=== PATIENT | male | born 1930 | race Caucasian/White ===

== ENCOUNTER 2016-05-08 15:48 | Inpatient (IN) | payer OTHER ==
[~2016-05-08] VITALS: Ht 167.6 cm; Wt 66.7 kg
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
--- NOTE | 2016-05-08 16:05 | NUR ---
Informed waiting has been performed.
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
--- NOTE | 2016-05-08 17:32 | NUR ---
PT NOTIFIED BY URIAH RAMIREZ THAT HE WILL BE ADMITTED TO THE HOSPITAL FOR SURGERY. 20G IV PLACED IN RIGHT FOREARM. FLUSHED PER PROTOCOL. NO REDNESS, SWELLING, HEAT, OR PAIN AT SITE. LABS DRAWN. LAV, YELLOW, BLUE, MODI, AND PINK SENT TO LAB. PT. TOLERATED PROCEDURE WELL.
[2016-05-08 17:50] LABS: ABSOLUTE BASOPHIL COUNT 0 /CUMM (0.0-0.2); ABSOLUTE EOSINOPHIL COUNT 0.1 /CUMM (0.0-0.7); ABSOLUTE GRANULOCYTE CT 4.8 /CUMM (1.4-6.5); ABSOLUTE LYMPH COUNT 1.9 /CUMM (1.2-3.4); ABSOLUTE MONOCYTE COUNT 0.5 /CUMM (0.10-0.60); BASOPHIL % 0.5 % (0.0-2.0); GRANULOCYTE % 65.2 % (42.2-75.2); MEAN CORPUSCULAR HGB 32.6 PG (27.0-31.0); MEAN CORPUSCULAR HGB CONC 33.5 G/DL (33.0-37.0); MEAN CORPUSCULAR VOLUME 97.4 FL (80.0-94.0); MEAN PLATELET VOLUME 8.5 FL (7.4-10.4); PLATELET COUNT 206 /CUMM (130-400); RBC DISTRIBUTION WIDTH 13.2 % (11.5-14.5); RED BLOOD CELL CT 3.39 /CUMM (4.70-6.10); WHITE BLOOD CELL COUNT 7.4 /CUMM (4.8-10.8)
[2016-05-08 17:52] LABS: PT 16.9 SEC (9.4-12.5); PTT 32 SEC (25-37)
--- NOTE | 2016-05-08 18:06 | RADIOLOGY REPORT ---
EXAMINATION: XR PORTABLE CHEST CLINICAL INFORMATION: 85-year-old male patient preop for neck fracture. COMPARISON: Chest x-ray performed on 11/08/2008. TECHNIQUE: AP portable semierect view of the chest was obtained. FINDINGS: The heart is top normal in size. The lungs are clear. Tenting of both hemidiaphragms can be attributed to pleural adhesions. IMPRESSION: No acute disease.
--- NOTE | 2016-05-08 18:34 | PN- Att Addend ---
Attending Addendum Attending Brief Note 85-year-old malecomes into emergency room with complaints of left hip pain. Patient reports that on [place] he slipped and came down on his left hip. Patient reports that he's been walking on a with a cane since then but having pain. Patient had out patient images done today which showed a left hip fracture. Patient comes in for further evaluation. Pain is sharp. Moderate to severe at times. Has htn and CKD, with history of heart murmur No recent cardiac events, remote history of colon cancer PAST MEDICAL/SURGICAL HISTORY: History of colon cancer, S/P resection, short- bowel syndrome, recurrent diarrhea, history of hyperkalemia, history of hypertension with irregular heartbeats, history of Marsh's cyst, diverticulosis. MEDICATIONS: Per CMR. ALLERGY: Tagamet and some antibiotic he is not sure of. PREVIOUS TRANSFUSION: Yes. FAMILY HISTORY: His daughter had a stroke, mother had cancer. SOCIAL HISTORY: He is and lives at home with his . He quit smoking 40 years ago. No history of alcohol abuse. Review of Systems Constitutional: Reports: no symptoms. Eyes: Reports: no symptoms. Ears, Nose, Throat, Mouth: Reports: no symptoms. Respiratory: Reports: no symptoms. Cardiovascular: Reports: no symptoms. Gastrointestinal/Abdominal: Reports: no symptoms. Genitourinary: Reports: no symptoms. Musculoskeletal: Reports: see HPI. Skin: Reports: no symptoms. Neurological/Psychological: Reports: no symptoms. All Other Systems: Reviewed and Negative Past History Travel History Traveled to [place] past 21 day No Medical History Any Pertinent Medical History? 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 No Physical Exam General Appearance: well developed/nourished, no apparent distress, alert Head: atraumatic, normal appearance Eyes: Bilateral: normal appearance. Ears, Nose, Throat, Mouth: hearing grossly normal, moist mucous membrane Neck: normal inspection Respiratory: normal breath sounds, no respiratory distress Cardiovascular: regular rate/rhythm mild elaine Back: normal inspection Extremities: tendeness left hip, pin with internal/external rotation of foot in hip Neurologic/Psych: awake, alert, oriented x 3 Skin: intact, normal color Vital Signs Date Time Temp Pulse Resp B/P Pulse O2 O2 Flow FiO2 Ox Delivery Rate 05/08 1735 58 18 174/96 98 Room Air 05/08 1603 98.2 55 20 172/87 99 Room Air Laboratory Tests 05/08/16 1725: Anion Gap 17 H, Estimated GFR 30 L, BUN/Creatinine Ratio 18.1, Glucose 87, Calcium 10.0, PT 16.9 H, INR 1.62 H, APTT 32, CBC w Diff NO MAN DIFF REQ, RBC 3.39 L, MCV 97.4 H, MCH 32.6 H, RDW 13.2, MPV 8.5, Gran % 65.2, Lymphocytes % 26.3, Monocytes % 7.0, Eosinophils % 1.0, Basophils % 0.5, Absolute Granulocytes 4.8, Absolute Lymphocytes 1.9, Absolute Monocytes 0.5, Absolute Eosinophils 0.1, Absolute Basophils 0, PUBS MCHC 33.5 Orders Procedure Date/time Status PARTIAL THROMBOPLASTIN TIME 05/08 170 Complete PROTHROMBIN TIME 05/08 170 Complete TYPE & SCREEN (NOT X-MATCH) 05/08 170 Active CBC WITHOUT DIFFERENTIAL 05/08 170 Complete BASIC METABOLIC PANEL 05/08 170 Complete EKG 05/08 1704 Active EKG 1degree avb Regular pulse CXR normal Out side images not available IMPRESSION HIP fracture HTN stable Previous arrythmia stable now with normal heart rate and regular rhythm b exam 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
[2016-05-08] MEDS ORDERED: POTASSIUM CHLO20 ME2 PO (19:16)
[2016-05-08] MEDS ORDERED: AMLODIPINE BESYL5 M1 PO (19:16)
[2016-05-08] MEDS ORDERED: MAGNESIUM500 M2 PO ×2 (19:19)
[2016-05-08] MEDS ORDERED: VITAMIN D1000 UNI1 PO (19:20)
[2016-05-08] MEDS ORDERED: CALCIUM600 M2 PO (19:20)
[2016-05-08] MEDS ORDERED: CYANOCOBAL1000 MCG/2 IM (19:21)
--- NOTE | 2016-05-08 19:21 | NUR ---
PT WILL GO FOR SURGERY T[place] MORNING PER SURGICAL PA. PT NPO AFTER MIDNIGHT PER SURGICAL PA.
[2016-05-08] MEDS ORDERED: LOMOTIL 2.5-0.1 EACH PO (19:22)
--- NOTE | 2016-05-08 20:24 | NUR ---
PT HAS NEW BED 204-2
--- NOTE | 2016-05-08 20:26 | NUR ---
PT HAS BED 215-2 AND CLEAN
--- NOTE | 2016-05-08 20:34 | NUR ---
REPORT GIVEN TO JOYCE ON B. TRANSPORT CALLED.
[2016-05-08 22:00] VITALS: BP 145/76
--- NOTE | 2016-05-08 22:02 | Admission Core Measures ---
Admission Lab Results I reviewed the following labs: Laboratory Tests 05/08 1725 Chemistry Sodium (137 - 145 mmol/L) 140 Potassium (3.5 - 5.1 mmol/L) 4.8 Chloride (98 - 107 mmol/L) 102 Carbon Dioxide (22 - 30 mmol/L) 21 L Anion Gap (5 - 16) 17 H BUN (9 - 20 mg/dL) 38 H Creatinine (0.7 - 1.2 mg/dL) 2.1 H Estimated GFR (>60 ml/min) 30 L BUN/Creatinine Ratio (7 - 25 %) 18.1 Glucose (65 - 99 mg/dL) 87 Calcium (8.4 - 10.2 mg/dL) 10.0 Coagulation PT (9.4 - 12.5 SEC) 16.9 H INR (0.90 - 1.17) 1.62 H APTT (25 - 37 SEC) 32 Hematology CBC w Diff NO MAN DIFF REQ WBC (4.8 - 10.8 /CUMM) 7.4 RBC (4.70 - 6.10 /CUMM) 3.39 L Hgb (14.0 - 18.0 G/DL) 11.1 L Hct (42 - 52 %) 33.0 L MCV (80.0 - 94.0 FL) 97.4 H MCH (27.0 - 31.0 PG) 32.6 H RDW (11.5 - 14.5 %) 13.2 Plt Count (130 - 400 /CUMM) 206 MPV (7.4 - 10.4 FL) 8.5 Gran % (42.2 - 75.2 %) 65.2 Lymphocytes % (20.5 - 51.1 %) 26.3 Monocytes % (1.7 - 9.3 %) 7.0 Eosinophils % (0 - 5 %) 1.0 Basophils % (0.0 - 2.0 %) 0.5 Absolute Granulocytes (1.4 - 6.5 /CUMM) 4.8 Absolute Lymphocytes (1.2 - 3.4 /CUMM) 1.9 Absolute Monocytes (0.10 - 0.60 /CUMM) 0.5 Absolute Eosinophils (0.0 - 0.7 /CUMM) 0.1 Absolute Basophils (0.0 - 0.2 /CUMM) 0 PUBS MCHC (33.0 - 37.0 G/DL) 33.5 Admission Meds I reviewed the following Meds: Current Medications Sig/Lico Start time Last Medication Dose Stop Time Status Admin Amlodipine Besylate 5 MG QAM 05/08 2153 UNVr (Norvasc) Calcium 600 MG DAILY 05/09 1000 UNVr (Calcium Carbonate 600 MG Tab) Cholecalciferol 1,000 IU DAILY 05/09 1000 UNVr (Vitamin D) Cyanocobalamin 1,000 MCG QFRI 05/15 0700 UNVr (Vitamin B12) Dextrose/Sodium 1,000 ML Q13H 05/09 0000 AC Chloride (D5W-1/2 Normal Saline 1000ML) Heparin Sodium 5,000 UNIT Q8 05/08 2200 AC (Porcine) Magnesium Oxide 400 MG DAILY 05/09 1000 UNVr (Mag-Ox) Ondansetron HCl 4 MG Q8P PRN 05/08 1900 AC (Zofran) Potassium Chloride 20 MEQ QPM 05/08 2200 UNVr (K-Dur) Acute Coronary Syndrome Inclusion Criteria ACS Diagnosis No Inpatient Core Measures LDL Reminder: If No, please order W/I first 24hr of stay Congestive Heart Failure Inclusion Criteria CHF Diagnosis No Cerebrovascular accident Inclusion Criteria CVA/TIA Diagnosis No Inpatient Core Measures Bedside Swallow Eval Reminder: If BSE failed, place ST order Antithrombotic Reminder: Order Antithrombotic Medication by end of day 2 Antithrombotic Reminder: Document Reason Antithrombotic Not ordered by end of day 2 AFIB/Flutter Reminder: If Present, add to problem list AFIB/Flutter Reminder: Order Anticoag Medication for pts with AFIB/Flutter Atherosclerosis Reminder: If Present, add to problem list LDL Reminder: If No, please order W/I first 24hr of stay PT Order Reminder: If No, please order Venous thromboembolism Inpatient Core Measures VTE Risk Factors: Age > 40, Trauma major or lower ext VTE Prophylaxis Ordered Inpt Mech & Pharm No Mech VTE prophylaxis d/t No contraindications No VTE Pharm Prophylaxis d/t No contraindications Inclusion Criteria - Per Current guidelines, there needs to be overlap - treatment for the first 5 days of Warfarin therapy. - Parenteral Anticoagulation (IV or SC) needs to be - given along with Warfarin therapy. VTE Diagnosis No VTE Type NONE VTE Confirmed by (Test) NONE Problem List As ranked by this Provider includes Assessment & Plan 1. Subcapital fracture of left femur HOME MEDS Home Med List Amlodipine Besylate 5 MG TABLET 1 TAB PO QAM BP (Reported) Calcium Carbonate (Calcium) 600 MG (1,500 MG) TABLET 1 CAP PO QAM SUPPLEMENT (Reported) Cholecalciferol (Vitamin D3) (Vitamin D) 1,000 UNIT CAPSULE 1 CAP PO QAM SUPPLEMENT (Reported) Cyanocobalamin (Vitamin B-12) (Cyanocobalamin Injection) 1,000 MCG/ML VIAL 1 ML IM QFRI SUPPLEMENT (Reported) Diphenoxylate HCl/Atropine (Lomotil 2.5-0.025 MG Tablet) 2.5 MG-0.025 MG TABLET 1 TAB PO EOD PRN DIARRHEA (Reported) Magnesium Oxide (Magnesium) 500 MG CAPSULE 1 CAP PO QAM SUPPLEMENT (Reported) Magnesium Oxide (Magnesium) 500 MG CAPSULE 0.5 CAP PO QPM SUPPLEMENT ( Reported) Potassium Chloride 20 MEQ TAB.ER.PRT 1 TAB PO QPM SUPPLEMENT (Reported)
[2016-05-08 23:40] VITALS: BP 157/80
--- NOTE | 2016-05-09 00:06 | NUR ---
PT ARRIVED TO FLOOR WITH DISTRIBUTION FROM ER. PT AWAKE, A/OX3, ON ROOM AIR, IV SITE INTACT, IVF INFUSING PER EMAR, ALPS IN PLACE, PT DENIES PAIN, SKIN INTACT, PT NPO AWAITING OR IN AM, SIZEWISE MATTRESS ORDERED, PT ORIENTED TO ROOM AND CALL SMITH WITHIN REACH. WILL MONITOR.
--- NOTE | 2016-05-09 00:09 | History & Physical ---
General Information and HPI MD Statement: I have seen and personally examined PEBBLES ALFONSO and documented this H&P. The patient is a 85 year old M who presented with a patient stated chief complaint of [left hip pain]. Source of Information: patient, family Exam Limitations: no limitations History of Present Illness: Mr. Ronaldo Winkler is an 85-year-old male who sustained a fall on 2015 but was able to ambulate after the fall. After the fall he states that he had progressively worsening left hip pain with ambulation only but no pain at rest. He was evaluated by his primary medical doctor today who sent him in for an x- ray and CAT scan of the left hip demonstrating nondisplaced femoral neck fracture. Currently sitting on the stretcher in the emergency room he is pain- free and has no other complaints at this time. Allergies/Medications Allergies: Coded Allergies: cimetidine (UNKNOWN 05/08/16) Home Med list Amlodipine Besylate 5 MG TABLET 1 TAB PO QAM BP (Reported) Calcium Carbonate (Calcium) 600 MG (1,500 MG) TABLET 1 CAP PO QAM SUPPLEMENT (Reported) Cholecalciferol (Vitamin D3) (Vitamin D) 1,000 UNIT CAPSULE 1 CAP PO QAM SUPPLEMENT (Reported) Cyanocobalamin (Vitamin B-12) (Cyanocobalamin Injection) 1,000 MCG/ML VIAL 1 ML IM QFRI SUPPLEMENT (Reported) Diphenoxylate HCl/Atropine (Lomotil 2.5-0.025 MG Tablet) 2.5 MG-0.025 MG TABLET 1 TAB PO EOD PRN DIARRHEA (Reported) Magnesium Oxide (Magnesium) 500 MG CAPSULE 1 CAP PO QAM SUPPLEMENT (Reported) Magnesium Oxide (Magnesium) 500 MG CAPSULE 0.5 CAP PO QPM SUPPLEMENT ( Reported) Potassium Chloride 20 MEQ TAB.ER.PRT 1 TAB PO QPM SUPPLEMENT (Reported) Past History Travel History Traveled to [place] past 21 day No Medical History Blood Transfusion Hx: No Neurological: NONE EENT: cataracts Cardiovascular: hypertension Respiratory: NONE Gastrointestinal: diverticulitis Hepatic: NONE Renal: chronic kidney disease Musculoskeletal: CHIP IN THE KNEE Psychiatric: NONE Endocrine: NONE Blood Disorders: NONE Cancer(s): colon/rectal cancer 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 Home Services at Home: None Smoking Status: Former Smoker ETOH Use: occasional use Illicit Drug Use: denies illicit drug use Review of Systems Review of Systems Constitutional: Denies: no symptoms, see HPI, chills, diaphoresis, fever, malaise, weakness, unexplained weight loss. Exam & Diagnostic Data Last 24 Hrs of Vital Signs/I&O Vital Signs Date Time Temp Pulse Resp B/P Pulse O2 O2 Flow FiO2 Ox Delivery Rate 05/08 2348 Room Air 05/08 2330 65 145/76 05/08 2200 98.1 65 20 145/76 97 Room Air 05/08 2038 97.8 61 18 177/82 99 Room Air 05/08 1735 58 18 174/96 98 Room Air 05/08 1603 98.2 55 20 172/87 99 Room Air Intake & Output 05/09 0800 05/09 0000 05/08 1600 Intake Total Output Total Balance Patient 147 lb Weight Physical Exam General Appearance Alert, Oriented X3 HEENT Atraumatic, PERRLA Cardiovascular Regular Rate, Normal S1, Normal S2 Lungs Clear to Auscultation, Normal Air Movement Abdomen Normal Bowel Sounds, Soft, No Tenderness Neurological Normal Speech, Strength at 5/5 X4 Ext, Normal Tone Extremities No Edema, Normal Pulses Last 24 Hrs of Labs/Jeff: Laboratory Tests 05/08/16 1725: Anion Gap 17 H, Estimated GFR 30 L, BUN/Creatinine Ratio 18.1, Glucose 87, Calcium 10.0, PT 16.9 H, INR 1.62 H, APTT 32, CBC w Diff NO MAN DIFF REQ, RBC 3.39 L, MCV 97.4 H, MCH 32.6 H, RDW 13.2, MPV 8.5, Gran % 65.2, Lymphocytes % 26.3, Monocytes % 7.0, Eosinophils % 1.0, Basophils % 0.5, Absolute Granulocytes 4.8, Absolute Lymphocytes 1.9, Absolute Monocytes 0.5, Absolute Eosinophils 0.1, Absolute Basophils 0, PUBS MCHC 33.5 Diagnostic Data CXR Results SERVICE DATE: 05/08/16-1706 EXAM TYPE: RAD - XRY-PORTABLE CHEST XRAY EXAMINATION: XR PORTABLE CHEST CLINICAL INFORMATION: 85-year-old male patient preop for neck fracture. COMPARISON: Chest x-ray performed on 11/08/2008. TECHNIQUE: AP portable semierect view of the chest was obtained. FINDINGS: The heart is top normal in size. The lungs are clear. Tenting of both hemidiaphragms can be attributed to pleural adhesions. IMPRESSION: No acute disease. DICTATED BY: FREDY SALINAS MD DATE/TIME DICTATED:05/08/161742 CHEF'S ASSISTANT:JOHN DATE/TIME TRANSCRIBED:05/08/161742 Other Results Patient has disc from outside x-ray facility demonstrating nondisplaced left femoral neck fracture. These x-rays were reviewed by Dr. Palumbo Assessment/Plan Assessment: Mr. Ronaldo Winkler is a 85-year-old male who presents with worsening left hip pain after a fall in March. X-rays taken today demonstrate nondisplaced left femoral neck hip fracture warranting surgical fixation. The patient was evaluated in the emergency room by Dr. Soriano, who was covering for his PCP Dr. Mason, and states that the patient although medical issues are chronic is cleared for open reduction internal fixation of left hip fracture. Therefore Dr. Hurtado as was willing to accept the patient and have him admitted to the orthopedic service. Plan Nothing by mouth after midnight IV fluids Open reduction internal fixation of left hip fracture in a.m. As Ranked By This Provider Problem List: 1. Subcapital fracture of left femur Core Measures/Miscellaneous Acute Coronary Syndrome ACS Diagnosis: No Cerebrovascular Accident CVA/TIA Diagnosis: No Congestive Heart Failure CHF Diagnosis: No Venous Thromboembolism VTE Risk Factors: Age > 40, Trauma major or lower ext VTE Prophylaxis Ordered Inpt: Mech & Pharm No Mech VTE prophylaxis d/t: No contraindications No VTE Pharm Prophylaxis d/t: No contraindications VTE Diagnosis: No VTE Type: NONE VTE Confirmed by (Test): NONE Severe Sepsis Severe Sepsis Present: No Septic Shock Septic Shock Present: No Miscellaneous Documentation Attending Case Discussed With: KIRILL KHAN,KYLE Primary Care Physician: TJ DELANEY MD Patient sees these Specialists None Level of Patient Care: General Medicine
[2016-05-09 06:30] VITALS: BP 165/76
--- NOTE | 2016-05-09 08:10 | NUR ---
NURSING NOTE: PT LEFT FLOOR VIA STRETCHER FOR OR WITH DR CARLOS AND LISETTE, PT AWAKE, A/OX3, ROOM AIR, DENIES PAIN, IVF, NPO, OR CHERCKLIST AND SCRUB COMPLETED BY PREVIOUS SHIFT. AWAIT RETURN TO FLOOR.
--- NOTE | 2016-05-09 08:10 | NUR ---
NURSING NOTE: PT LEFT FLOOR VIA BED WITH DISTRIBUTION FOR OR FOR L HIP FX WITH DR CARLOS, PT AWAKE, A/OX3, ROOM AIR, NPO, DAUGHTER AT BEDSIDE, AM MEDS HELDS PER Teena KRUSE. CHART, OR NICK AND CLEMENTINEER SENT WITH PT. IVF PER MD ORDER, PT DENIES PAIN, AWAIT RETURN TO FLOOR.
--- NOTE | 2016-05-09 08:15 | NUR ---
NURSING NOTE: SIZEIWSE MATTRESS ENT TO OR; OR AWARE
[2016-05-09 11:10] VITALS: BP 128/76
--- NOTE | 2016-05-09 11:10 | NUR ---
NURSING NOTE: PT BACK TO FLOOR VIA SIZEWISE BED, PT S/P L HIP PINNING. PT AWAKE, A/OX3, C/O NAUSEA; WILL GIVE ZOFRAN PRN. C VANNA KRUSE AWARE. DSG TO L HIP C/D/I. ALPS IN PLACE, VITALS OBTAINED AND STABLE. DTV BY 1600PM; URINAL AT BEDSIDE, FAMILY AT BEDSIDE, REPORT GIVEN TO NEXT SHIFT RN. CONT TO MONITOR.
--- NOTE | 2016-05-09 13:01 | Patient Discharge Instructions ---
Discharge Instructions General Discharge Information You were seen/treated for: left hip fracture You had these procedures: open reduction internal fixation of the left hip Watch for these problems: increased pain, redness or drainage from incision, fever greater than 101F, chest pain or shortness of breath Other wound care: Daily dry dressing changes to left hip. Special Instructions: You will be on a medication called Coumadin for approximately 4-6 weeks, at Dr. Palumbo' discretion. Blood levels will need to be drawn twice a week, usually on a Wednesday/ schedule while on the medication. Avoid foods high in vitamin K (leafy, green vegetables) while on Coumadin. Do not drive while on pain medication. Diet Continue normal diet: Yes Activity Full Activity/No Limits: Yes (can weight bear as prasanna with PT) Additional ACTIVITY Info: Ambulate with assistance of physical therapy. Use rolling walker if needed. Acute Coronary Syndrome Inclusion Criteria At DC or during hospital stay patient has or had the following: ACS DIAGNOSIS No Discharge Core Measures Meds if any: Prescribed or Continued at Discharge Meds if any: NOT Prescribed or Continued at Discharge Congestive Heart Failure Inclusion Criteria At DC or during hospital stay patient has or had the following: CHF DIAGNOSIS No Discharge Core Measures Meds if any: Prescribed or Continued at Discharge Meds if any: NOT Prescribed or Continued at Discharge Cerebrovascular accident Inclusion Criteria At DC or during hospital stay patient has or had the following: CVA/TIA Diagnosis No Discharge Core Measures Meds if any: Prescribed or Continued at Discharge Meds if any: NOT Prescribed or Continued at Discharge Venous thromboembolism Inclusion Criteria VTE Diagnosis No VTE Type NONE VTE Confirmed by (Test) NONE Discharge Core Measures - Per Current guidelines, there needs to be overlap - treatment for the first 5 days of Warfarin therapy. - If discharged on Warfarin prior to 5 days of - overlap therapy, the patient will need to be - assessed for post discharge needs including - *Post discharge parental anticoagulation - *Warfarin and/or parental anticoagulation education - *Follow up date to check INR post discharge At least 5 days overlap therapy as Inpatient No Meds if any: Prescribed or Continued at Discharge Note: Overlap Therapy is Warfarin and Anticoagulant Meds if any: NOT Prescribed or Continued at Discharge
--- NOTE | 2016-05-09 13:40 | Surgical Discharge Summary ---
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 Home Who Do You Live With? Significant Other Services at Home: None What is Your Primary Language? Yoruba ETOH Use: occasional use Review of Systems: see h&p Hospital Course Course Attending Physician: KIRILL KHAN,[facility] Primary Care Physician: ELAINA KHAN,[facility] Hospital Course: Mr. Mora is an 85 year old male with a past medical history significant for CKD and hypertension. He fell on his left side on , feeling some hip pain afterwards. He continued to walk on it but ultimately was unable to bear weight. He had an xray of his hip at an outside facility, confirming a subcapital hip fracture. He was admitted on 05/08/16 and underwent an ORIF of his left hip on 05/09/16. He was transferred to the surgical floor in stable condition. Coumadin was given daily for DVT prophylaxis, dosed based on INR blood draws. He was seen by physical therapy, able to weight bear as tolerated, and was deemed appropriate for home with services upon discharge. He was discharged without incident and will follow-up with Dr. Palumbo as an outpatient. Complications: None Allergies: Coded Allergies: cimetidine (UNKNOWN 05/08/16) Pertinent Lab Results: INR 3.13 (05/11/16), skip coumadin dose today Disposition Summary Disposition Principal Diagnosis: Left hip fracture Additional Diagnosis: Left hip fracture s/p cannulated screw repair (05/09/16) Discharge Disposition: home health services Discharge Instructions General Discharge Information Code Status: Full Code Patient's Diet: heart healthy. coumadin considerations. Patient's Activity: weight bearing as tolerated. rolling walker assistance as needed. Follow-Up Instructions/Appts: dry guaze dressing change daily, left leg/hip blood draws for PT/INR, with appropriate adjustment of coumadin, goal INR 2-3 staple removal at follow up visit, around post-op day#14 tylenol for pain control outpatient PT Medications at Discharge Discharge Medications: Continue taking these medications: Amlodipine Besylate (Amlodipine Besylate) 5 MG TABLET 1 Tablet ORAL Every Morning Qty = 30 Comments: PER PT Potassium Chloride (Potassium Chloride) 20 MEQ TAB.ER.PRT 1 Tablet ORAL Every night Qty = 30 Comments: PER PT Magnesium Oxide (Magnesium) 500 MG CAPSULE 1 Capsule ORAL Every Morning Comments: PER PT Magnesium Oxide (Magnesium) 500 MG CAPSULE 0.5 Capsule ORAL Every night Comments: PER PT Calcium Carbonate (Calcium) 600 MG (1,500 MG) TABLET 1 Capsule ORAL Every Morning Comments: PER PT Cholecalciferol (Vitamin D3) (Vitamin D) 1,000 UNIT CAPSULE 1 Capsule ORAL Every Morning Comments: PER PT Cyanocobalamin (Vitamin B-12) (Cyanocobalamin Injection) 1,000 MCG/ML VIAL 1 Milliliters INTRAMUSC EVERY WEDNESDAY Comments: PER PT Diphenoxylate HCl/Atropine (Lomotil 2.5-0.025 MG Tablet) 2.5 MG-0.025 MG TABLET 1 Tablet ORAL Every other day as needed for DIARRHEA Qty = 30 Comments: PER PT TAKES EOD ROUTINE AND THEN 1 PRN Start taking the following new medications: Warfarin Sodium (Coumadin) 5 MG TABLET 5 Milligram ORAL DAILY Qty = 30 No Refills Oxycodone HCl/Acetaminophen (Percocet 5-325 MG Tablet) 5 MG-325 MG TABLET 1-2 Tablet ORAL EVERY 4 HOURS NEEDED as needed for pain Qty = 30 No Refills Copies To: ELAINA KHAN,TJ Alex
--- NOTE | 2016-05-09 13:47 | PN- Att Addend ---
Attending Addendum Attending Brief Note Doing well s/p surg DOing well Nausea Intake & Output 05/09 1600 05/09 0800 05/09 0000 Intake Total 600 675 Output Total 1350 400 Balance -750 275 Intake, IV 600 75 Intake, Oral 600 Number 2 Bowel Movements Output, Urine 1350 400 Patient 147 lb Weight Current Medications Sig/Lico Start time Last Medication Dose Route Stop Time Status Admin Amlodipine Besylate 5 MG QAM 05/10 1000 AC PO Amlodipine Besylate 5 MG QAM 05/08 2153 DC 05/08 PO 2330 Calcium 600 MG DAILY 05/10 1000 AC PO Calcium 600 MG DAILY 05/09 1000 DC PO Cholecalciferol 1,000 IU DAILY 05/10 1000 AC PO Cholecalciferol 1,000 IU DAILY 05/09 1000 DC PO Cyanocobalamin 1,000 MCG QFRI 05/15 0700 DC IM Cyanocobalamin 1,000 MCG QFRI 05/15 0700 AC IM Dextrose/Sodium 1,000 ML Q13H 05/09 1300 AC 05/09 Chloride IV 1254 Dextrose/Sodium 1,000 ML Q13H 05/09 0000 DC 05/08 Chloride IV 05/09 1259 2331 Dextrose/Sodium 1,000 ML .[id number] 05/08 1900 DC 05/08 Chloride IV 1907 Heparin Sodium 5,000 UNIT Q8 05/09 1400 AC (Porcine) SC Heparin Sodium 5,000 UNIT Q8 05/08 2200 DC 05/08 (Porcine) SC 2330 Magnesium Oxide 400 MG DAILY 05/10 1000 AC PO Magnesium Oxide 400 MG DAILY 05/09 1000 DC PO Metoclopramide HCl 10 MG Q6P PRN 05/09 1345 UNVr IV Morphine Sulfate 2 MG Q4P PRN 05/09 1315 AC IV Ondansetron HCl 4 MG Q8P PRN 05/09 1115 AC 05/09 IV 1121 Ondansetron HCl 4 MG Q8P PRN 05/08 1900 DC IV Oxycodone/ 1 TAB Q4P PRN 05/09 1315 AC Acetaminophen PO Oxycodone/ 2 TAB Q4P PRN 05/09 1315 AC Acetaminophen PO Potassium Chloride 20 MEQ QPM 05/09 2200 AC PO Potassium Chloride 20 MEQ QPM 05/08 2200 DC 05/08 PO 2330 Warfarin Sodium 5 MG COUMADIN 1700 ONE 05/09 1700 AC PO 05/09 1701 Laboratory Tests 05/08 1725 Chemistry Sodium (137 - 145 mmol/L) 140 Potassium (3.5 - 5.1 mmol/L) 4.8 Chloride (98 - 107 mmol/L) 102 Carbon Dioxide (22 - 30 mmol/L) 21 L Anion Gap (5 - 16) 17 H BUN (9 - 20 mg/dL) 38 H Creatinine (0.7 - 1.2 mg/dL) 2.1 H Estimated GFR (>60 ml/min) 30 L BUN/Creatinine Ratio (7 - 25 %) 18.1 Glucose (65 - 99 mg/dL) 87 Calcium (8.4 - 10.2 mg/dL) 10.0 Coagulation PT (9.4 - 12.5 SEC) 16.9 H INR (0.90 - 1.17) 1.62 H APTT (25 - 37 SEC) 32 Hematology CBC w Diff NO MAN DIFF REQ WBC (4.8 - 10.8 /CUMM) 7.4 RBC (4.70 - 6.10 /CUMM) 3.39 L Hgb (14.0 - 18.0 G/DL) 11.1 L Hct (42 - 52 %) 33.0 L MCV (80.0 - 94.0 FL) 97.4 H MCH (27.0 - 31.0 PG) 32.6 H RDW (11.5 - 14.5 %) 13.2 Plt Count (130 - 400 /CUMM) 206 MPV (7.4 - 10.4 FL) 8.5 Gran % (42.2 - 75.2 %) 65.2 Lymphocytes % (20.5 - 51.1 %) 26.3 Monocytes % (1.7 - 9.3 %) 7.0 Eosinophils % (0 - 5 %) 1.0 Basophils % (0.0 - 2.0 %) 0.5 Absolute Granulocytes (1.4 - 6.5 /CUMM) 4.8 Absolute Lymphocytes (1.2 - 3.4 /CUMM) 1.9 Absolute Monocytes (0.10 - 0.60 /CUMM) 0.5 Absolute Eosinophils (0.0 - 0.7 /CUMM) 0.1 Absolute Basophils (0.0 - 0.2 /CUMM) 0 PUBS MCHC (33.0 - 37.0 G/DL) 33.5 Vital Signs Date Time Temp Pulse Resp B/P Pulse O2 O2 Flow FiO2 Ox Delivery Rate 05/09 1110 97.6 60 20 128/76 97 Room Air 05/09 0630 97.8 54 18 165/76 99 Room Air 05/08 2348 Room Air 05/08 2340 97.8 60 20 157/80 97 Room Air 05/08 2330 65 145/76 05/08 2200 98.1 65 20 145/76 97 Room Air 05/08 2038 97.8 61 18 177/82 99 Room Air 05/08 1735 58 18 174/96 98 Room Air 05/08 1603 98.2 55 20 172/87 99 Room Air IMPRESSION HIP fracture s/p surg stable Post op nausea HTN stable 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
[2016-05-09 16:43] VITALS: BP 148/62
--- NOTE | 2016-05-09 16:55 | PN- Orthopedic ---
Subjective Subjective: POST OP CHECK Patient resting comfortably in bed. No complaints of pain to left hip. Nauseated, received IV antiemetics earlier, but was able to eat dinner without any problem. Denies CP/SOB, vomiting, fever or chills. Yet to ambulate. Spontaneously voiding. Objective Vital Signs and I&Os Vital Signs Date Time Temp Pulse Resp B/P Pulse O2 O2 Flow FiO2 Ox Delivery Rate 05/09 1643 97.3 52 19 148/62 99 05/09 1110 97.6 60 20 128/76 97 Room Air 05/09 0630 97.8 54 18 165/76 99 Room Air 05/08 2348 Room Air 05/08 2340 97.8 60 20 157/80 97 Room Air 05/08 2330 65 145/76 05/08 2200 98.1 65 20 145/76 97 Room Air 05/08 2038 97.8 61 18 177/82 99 Room Air 05/08 1735 58 18 174/96 98 Room Air Intake & Output 05/09 1600 05/09 0800 05/09 0000 05/08 1600 05/08 0800 05/08 0000 Intake Total 375 600 675 Output Total 1350 400 Balance 375 -750 275 Intake, IV 225 600 75 Intake, Oral 150 600 Number 2 Bowel Movements Output, Urine 1350 400 Patient 147 lb Weight Physical Exam: Gen: AAOx3 in NAD Cor: S1+S2+ Lungs: CTA brooke Abd: soft, NT, ND, +BS x4 Ext: left hip dressing C/D/I. Dorsiflexion and plantar flexion intact. Sensation grossly intact. Palpable DP pulse. Calves soft, non-tender. Results Last 48 Hours of Labs: Laboratory Tests 05/08 1725 Chemistry Sodium (137 - 145 mmol/L) 140 Potassium (3.5 - 5.1 mmol/L) 4.8 Chloride (98 - 107 mmol/L) 102 Carbon Dioxide (22 - 30 mmol/L) 21 L Anion Gap (5 - 16) 17 H BUN (9 - 20 mg/dL) 38 H Creatinine (0.7 - 1.2 mg/dL) 2.1 H Estimated GFR (>60 ml/min) 30 L BUN/Creatinine Ratio (7 - 25 %) 18.1 Glucose (65 - 99 mg/dL) 87 Calcium (8.4 - 10.2 mg/dL) 10.0 Coagulation PT (9.4 - 12.5 SEC) 16.9 H INR (0.90 - 1.17) 1.62 H APTT (25 - 37 SEC) 32 Hematology CBC w Diff NO MAN DIFF REQ WBC (4.8 - 10.8 /CUMM) 7.4 RBC (4.70 - 6.10 /CUMM) 3.39 L Hgb (14.0 - 18.0 G/DL) 11.1 L Hct (42 - 52 %) 33.0 L MCV (80.0 - 94.0 FL) 97.4 H MCH (27.0 - 31.0 PG) 32.6 H RDW (11.5 - 14.5 %) 13.2 Plt Count (130 - 400 /CUMM) 206 MPV (7.4 - 10.4 FL) 8.5 Gran % (42.2 - 75.2 %) 65.2 Lymphocytes % (20.5 - 51.1 %) 26.3 Monocytes % (1.7 - 9.3 %) 7.0 Eosinophils % (0 - 5 %) 1.0 Basophils % (0.0 - 2.0 %) 0.5 Absolute Granulocytes (1.4 - 6.5 /CUMM) 4.8 Absolute Lymphocytes (1.2 - 3.4 /CUMM) 1.9 Absolute Monocytes (0.10 - 0.60 /CUMM) 0.5 Absolute Eosinophils (0.0 - 0.7 /CUMM) 0.1 Absolute Basophils (0.0 - 0.2 /CUMM) 0 PUBS MCHC (33.0 - 37.0 G/DL) 33.5 Assessment/Plan Assessment/Plan A: 85 year old male with subcapital hip fracture now s/p ORIF left hip; AVSS. Plan: PT eval in am. Coumadin x1 tonight. Will dose daily based on INR results. F/U morning labwork. 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 Case management to evaluate for STR bed. Dressing change on POD #2. Core Measures/Miscellaneous Venous Thromboembolism VTE Risk Factors: Age > 40, Surgery VTE Contraindications: No Contraindications VTE Prophylaxis Ordered Inpt: Mech & Pharm VTE Diagnosis: No VTE Type: NONE VTE Confirmed by (Test): NONE Beta Praveen Is Beta Praveen a Home Med? No Antibiotics Is Patient on Antibiotics? No
--- NOTE | 2016-05-09 17:15 | NUR ---
Evaluation canceled today as nursing notes that pt is too nauseous to tolerate any activity at this time. Will cont to follow in order to complete evaluation.
[2016-05-09 23:40] VITALS: BP 135/75
--- NOTE | 2016-05-10 07:49 | PN- Orthopedic ---
Subjective Subjective: No acute overnight events reported, pain well controlled, has been oob to void without difficulty. Denies chest pain, shortness of breath and difficulty breathing. Denies nause and vomitting. Objective Vital Signs and I&Os Vital Signs Date Time Temp Pulse Resp B/P Pulse O2 O2 Flow FiO2 Ox Delivery Rate 05/09 2340 98.2 61 18 135/75 94 Room Air 05/09 1643 97.3 52 19 148/62 99 05/09 1110 97.6 60 20 128/76 97 Room Air Intake & Output 05/10 0805/10 0000 05/09 1600 05/09 0805/09 0000 05/08 1600 Intake Total 600 1400 375 600 675 Output Total 148 034 3315 400 Balance -250 900 375 -750 275 Intake, IV 600 600 225 600 75 Intake, Oral 800 150 600 Number 1 2 Bowel Movements Output, Urine 720 720 8926 400 Patient 147 lb Weight Physical Exam: General: Alert and oriented x3, no acute distress Cardiac: RRR, s1s2 Pulm: CTA bilaterally Abdomen: Non-tender, non-distended Extremities: Moves all extremities, distal sensation intact, motor 5/5 in plantar and dorsi flexion, dp pulses palpable, skin warm and well perfused, bialteral calves soft and non-tender Surgical site: Left thigh, compartment soft, dressing dry and intact, no erythema or ecchymosis noted. Assessment/Plan Assessment/Plan This is an 85 year old male, POD 1, s/p ORIF left subcap fem fracture with cannulated screw placement. Doing well. PMH includes ckd, htn -Continue with current pain regimen -F/U am labs -INR target 2-3, dose coumadin daily -WBAT -Bowel regimen: Colace and miralax -Diet: as tolerated -Will d/w Dr. Palumbo Core Measures/Miscellaneous Venous Thromboembolism VTE Risk Factors: Age > 40, Surgery VTE Contraindications: No Contraindications VTE Prophylaxis Ordered Inpt: Mech & Pharm VTE Diagnosis: No VTE Type: NONE VTE Confirmed by (Test): NONE Beta Praveen Is Beta Praveen a Home Med? No Antibiotics Is Patient on Antibiotics? No
[2016-05-10 08:07] LABS: ABSOLUTE BASOPHIL COUNT 0 /CUMM (0.0-0.2); ABSOLUTE EOSINOPHIL COUNT 0.1 /CUMM (0.0-0.7); ABSOLUTE GRANULOCYTE CT 3.6 /CUMM (1.4-6.5); ABSOLUTE MONOCYTE COUNT 0.4 /CUMM (0.10-0.60); BASOPHIL % 0.3 % (0.0-2.0); EOSINOPHIL % 2.8 % (0-5); GRANULOCYTE % 69.4 % (42.2-75.2); MEAN CORPUSCULAR HGB 32.5 PG (27.0-31.0); MEAN CORPUSCULAR VOLUME 98.4 FL (80.0-94.0); MEAN PLATELET VOLUME 8.8 FL (7.4-10.4); PLATELET COUNT 173 /CUMM (130-400); RBC DISTRIBUTION WIDTH 13.7 % (11.5-14.5); RED BLOOD CELL CT 2.78 /CUMM (4.70-6.10); WHITE BLOOD CELL COUNT 5.2 /CUMM (4.8-10.8)
[2016-05-10 08:20] LABS: HEMATOCRIT 27.4 % (42-52)
[2016-05-10 08:26] LABS: PT 14.7 SEC (9.4-12.5)
[2016-05-10 09:07] VITALS: BP 152/68
--- NOTE | 2016-05-10 09:30 | RADIOLOGY REPORT ---
EXAMINATION: FLUOROSCOPIC GUIDANCE AND C-ARM IMAGES HIP, LEFT CLINICAL INFORMATION: Left hip fracture pinning. COMPARISON: None. TECHNIQUE: 69.3 seconds of fluoroscopy time utilized for the study. Multiple AP and lateral C-arm images obtained of the left hip. FINDINGS: The femoral fracture is not well demonstrated on the serial images which demonstrate placement of 2 threaded screws across the femoral neck to terminate at the level of the left femoral head. Detail is limited on the views provided. Please correlate with the procedural documentation. IMPRESSION: Fluoroscopic guidance provided for left hip pinning.
--- NOTE | 2016-05-10 11:34 | PN- Pulmonary ---
Subjective HPI/Critical Care Issues: No acute overnight events reported, pain well controlled, has been oob to void without difficulty. Denies chest pain, shortness of breath and difficulty breathing. Denies nause and vomittin Objective Current Medications: Current Medications Sig/Lico Start time Last Medication Dose Route Stop Time Status Admin Amlodipine Besylate 5 MG QAM 05/10 1000 AC 05/10 PO 0848 Calcium 600 MG DAILY 05/10 1000 AC 05/10 PO 0848 Cholecalciferol 1,000 IU DAILY 05/10 1000 AC 05/10 PO 0848 Cyanocobalamin 1,000 MCG QFRI 05/15 0700 DC IM Cyanocobalamin 1,000 MCG QFRI 05/15 0700 AC IM Dextrose/Sodium 1,000 ML Q13H 05/09 1300 DC 05/10 Chloride IV 0018 Dextrose/Sodium 1,000 ML Q13H 05/09 0000 DC 05/08 Chloride IV 05/09 1259 2331 Heparin Sodium 5,000 UNIT Q8 05/09 1400 AC 05/10 (Porcine) SC 0629 Magnesium Oxide 400 MG DAILY 05/10 1000 AC 05/10 PO 0848 Metoclopramide HCl 10 MG Q6P PRN 05/09 1345 DC 05/09 IV 1416 Morphine Sulfate 2 MG Q4P PRN 05/09 1315 AC IV Ondansetron HCl 4 MG Q8P PRN 05/09 1115 AC 05/09 IV 1121 Oxycodone/ 1 TAB Q4P PRN 05/09 1315 AC Acetaminophen PO Oxycodone/ 2 TAB Q4P PRN 05/09 1315 AC Acetaminophen PO Patient Medication 1 UNIT ONE NR 05/10 0930 SC Teaching ED 05/10 1000 Potassium Chloride 20 MEQ QPM 05/09 2200 DC 05/09 PO 2104 Warfarin Sodium 5 MG COUMADIN 1700 ONE 05/10 1700 AC PO 05/10 1701 Warfarin Sodium 5 MG COUMADIN 1700 ONE 05/09 1700 DC 05/09 PO 05/09 1701 1711 Physical Exam: General: Alert and oriented x3, no acute distress Cardiac: RRR, s1s2 Pulm: CTA bilaterally Abdomen: Non-tender, non-distended Extremities: Moves all extremities, distal sensation intact, motor 5/5 in plantar and dorsi flexion, dp pulses palpable, skin warm and well perfused, bialteral calves soft and non-tender Surgical site: Left thigh, compartment soft, dressing dry and intact, no erythema or ecchymosis noted. 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
[2016-05-10 16:03] VITALS: BP 149/66
[2016-05-10 23:47] VITALS: BP 160/86
--- NOTE | 2016-05-11 07:08 | PN- Orthopedic ---
Subjective Subjective: The patient was seen this morning postoperatively day #2. He does report some soreness around the incision site but is otherwise comfortable with the current pain regiment. He has no other complaints the current time and is eager to be out of bed today with a goal of returning home if cleared by physical therapy. Objective Vital Signs and I&Os Vital Signs Date Time Temp Pulse Resp B/P Pulse O2 O2 Flow FiO2 Ox Delivery Rate 05/10 2347 98.2 64 20 160/86 95 05/10 1603 98.7 69 19 149/66 96 05/10 0907 98.3 54 18 152/68 97 Room Air 05/10 0848 160/70 Intake & Output 05/11 0800 05/11 0000 05/10 1600 05/10 0800 05/10 0000 05/09 1600 Intake Total 750 494 441 8957 375 Output Total 900 675 200 850 500 350 Balance -900 75 775 -250 900 25 Intake, IV 375 600 600 225 Intake, Oral 750 600 800 150 Number 0 1 Bowel Movements Output, Urine 900 675 200 850 500 350 Physical Exam: Gen.: Alert and in no obvious distress Skin: Warm and dry Extremities: Bilateral lower extremities are warm without calf tenderness or significant edema. Gross motor and sensory are intact. Left lower extremity surgical incision is clean, dry, and intact without signs of infection. Surgical clips are in place and dressing was changed this morning. Assessment/Plan Assessment/Plan Assessment: 85-year-old male status post left femoral ORIF postoperative day #2. The patient is progressing as expected and his pain is under adequate control. Plan: Out of the physical therapy patient is weightbearing as tolerated Continue current pain and bowel regiment Follow-up morning labs and dose Coumadin for an INR between 2 and 3 GI and DVT prophylaxis Follow-up PT recommendations for discharge planning Core Measures/Miscellaneous Venous Thromboembolism VTE Risk Factors: Age > 40, Surgery VTE Contraindications: No Contraindications VTE Prophylaxis Ordered Inpt: Mech & Pharm VTE Diagnosis: No VTE Type: NONE VTE Confirmed by (Test): NONE Beta Praveen Is Beta Praveen a Home Med? No Antibiotics Is Patient on Antibiotics? No
--- NOTE | 2016-05-11 07:24 | PN- Att Addend ---
Attending Addendum Attending Brief Note Medical attending note. Patient is doing well postop day number of 3 Minimal discomfort walking with a walker not done stairs as yet. Intake & Output 05/11 0800 05/11 0000 05/10 1600 Intake Total 750 975 Output Total 1125 675 200 Balance -1125 75 775 Intake, IV 375 Intake, Oral 750 600 Number 0 Bowel Movements Output, Urine 1125 675 200 Current Medications Sig/Lico Start time Last Medication Dose Route Stop Time Status Admin Amlodipine Besylate 5 MG QAM 05/10 1000 AC 05/10 PO 0848 Calcium 600 MG DAILY 05/10 1000 AC 05/10 PO 0848 Cholecalciferol 1,000 IU DAILY 05/10 1000 AC 05/10 PO 0848 Cyanocobalamin 1,000 MCG QFRI 05/15 0700 DC IM Cyanocobalamin 1,000 MCG QFRI 05/15 0700 AC IM Dextrose/Sodium 1,000 ML Q13H 05/09 1300 DC 05/10 Chloride IV 0018 Heparin Sodium 5,000 UNIT Q8 05/09 1400 DC 05/10 (Porcine) SC 0629 Magnesium Oxide 400 MG DAILY 05/10 1000 AC 05/10 PO 0848 Morphine Sulfate 2 MG Q4P PRN 05/09 1315 AC IV Ondansetron HCl 4 MG Q8P PRN 05/09 1115 AC 05/09 IV 1121 Oxycodone/ 1 TAB Q4P PRN 05/09 1315 AC Acetaminophen PO Oxycodone/ 2 TAB Q4P PRN 05/09 1315 AC Acetaminophen PO Patient Medication 1 UNIT ONE NR 05/10 0930 DC Teaching ED 05/10 1000 Potassium Chloride 20 MEQ QPM 05/09 2200 DC 05/09 PO 2104 Warfarin Sodium 5 MG COUMADIN 1700 ONE 05/10 1700 DC 05/10 PO 05/10 1701 1702 Vital Signs Date Time Temp Pulse Resp B/P Pulse O2 O2 Flow FiO2 Ox Delivery Rate 05/10 2347 98.2 64 20 160/86 95 05/10 1603 98.7 69 19 149/66 96 05/10 0907 98.3 54 18 152/68 97 Room Air 05/10 0848 160/70 Intake & Output 05/11 0800 05/11 0000 05/10 1600 Intake Total 750 975 Output Total 1125 675 200 Balance -1125 75 775 Intake, IV 375 Intake, Oral 750 600 Number 0 Bowel Movements Output, Urine 1125 675 200 Assessment Status post the hip fracture day #3 patient is ambulating well patient to stairs. The patient is comfortable and able to go home with physical therapy at home if not may need to go to short-term rehabilitation.
[2016-05-11 08:01] VITALS: BP 130/74
[2016-05-11 09:03] LABS: PT 32.5 SEC (9.4-12.5)
[2016-05-11 09:18] LABS: ABSOLUTE BASOPHIL COUNT 0 /CUMM (0.0-0.2); ABSOLUTE EOSINOPHIL COUNT 0.2 /CUMM (0.0-0.7); ABSOLUTE GRANULOCYTE CT 3.3 /CUMM (1.4-6.5); ABSOLUTE LYMPH COUNT 1.7 /CUMM (1.2-3.4); ABSOLUTE MONOCYTE COUNT 0.6 /CUMM (0.10-0.60); BASOPHIL % 0.1 % (0.0-2.0); EOSINOPHIL % 3.1 % (0-5); GRANULOCYTE % 57.7 % (42.2-75.2); HEMATOCRIT 26.4 % (42-52); MEAN CORPUSCULAR HGB 32.9 PG (27.0-31.0); MEAN CORPUSCULAR HGB CONC 33.6 G/DL (33.0-37.0); MEAN CORPUSCULAR VOLUME 97.8 FL (80.0-94.0); MEAN PLATELET VOLUME 8.9 FL (7.4-10.4); PLATELET COUNT 163 /CUMM (130-400); RBC DISTRIBUTION WIDTH 13.4 % (11.5-14.5); WHITE BLOOD CELL COUNT 5.8 /CUMM (4.8-10.8)
[2016-05-11 09:21] VITALS: BP 164/82
[2016-05-11] MEDS ORDERED: COUMADIN2.5 M1 PO (12:09)
[2016-05-11] MEDS ORDERED: PERCOCET 5-3251 EACH PO (12:09)
--- NOTE | 2016-05-18 10:13 | Operative Report ---
Operative/Inv Procedure Report Surgery Date: 05/09/16 Name of Procedure: ORIF left femoral neck hip fracture Pre-Operative Diagnosis: Left femoral neck hip fracture Post-Operative Diagnosis: Same Estimated Blood Loss: less than 50ml Surgeon/Floor Installation Mechanic: KYLE ROY MD Anesthesia: general endotracheal tube Implants: 6.5 cannulated screws Specimens: None Complications: None Condition: Stable Operative Indication: Patient is an 85-year-old man who had a history of a fall around [employer]. He had initial severe pain according to his daughter were a few days. He was thereafter able to weight-bear and walk but complains of some groin pain on the left side. As an outpatient through his primarys office, x-rays showed a impacted femoral neck hip fracture. He was admitted to the hospital. Discussion of risks, benefits and expectations of surgical and nonsurgical options were reviewed including but not limited to persistent hip pain, need for subsequent surgery, infection, DVT, malunion, nonunion, anesthesia risks. Recommended fixation to mobilize and to avoid further complications from an orthopedic and medical standpoint. Patient wished to proceed With this. Operative/Procedure Note Note: Once under appropriate anesthesia the patient was placed on the fracture table. All bony prominences well-padded. The left lower extremity was prepped and draped in standard fashion. The operative IV antibiotics were given prophylactically. A small incision was made in the anticipated area of the insertion of the K wires for the cannulated system. I was satisfied with position of the wires. 3 wires were placed. However a third wire was found to measure 130 mm and the longest screw on the set was 120. I elected to place the 2 6.5 screws in standard fashion. By placing a K wire, obtaining fluoroscopic images measuring and then drilling followed by placement of the appropriate length screws. I was satisfied with position of the screws. I was satisfied with the maintenance of the alignment of the fracture. Both AP and lateral planes were visualized area I then removed all guidewires. Copious irrigation of the wound followed I then closed the fascial incision with interrupted #1 Vicryl sutures. Subcutaneous tissues closed with 2-0 Vicryl and skin was closed with ene. Appropriate dressings were applied and patient was awakened and taken to recovery in good condition. No intraoperative complications. Discharge Disposition: PACU
== END 2016-05-11 14:15 | disposition home health service (06) | DRG 481 ==
LOC: CANRESERV → ENRESERVDT → ENRESERVTM → ERH 15:48 → 2NB 19:37 → ERHI 19:37 → ENPENDDIS 19:37 → EDBEDREQ 20:09 → 2NB 21:06
PROVIDERS: Nurse Practitioner; Physician Assistant Medical; Physician Assistant Surgical; ADMIT Orthopaedic Surgery
PROC: 0QS704Z Reposition Left Upper Femur with Internal Fixation Device, Open Approach (ICD-10-PCS; principal; 2016-05-09)
DX: S72.012A Unspecified intracapsular fracture of left femur, initial encounter for closed fracture (principal); N18.4 Chronic kidney disease, stage 4 (severe); W18.30XA Fall on same level, unspecified, initial encounter; Y92.009 Unspecified place in unspecified non-institutional (private) residence as the place of occurrence of the external cause; I12.9 Hypertensive chronic kidney disease with stage 1 through stage 4 chronic kidney disease, or unspecified chronic kidney disease; Z85.038 Personal history of other malignant neoplasm of large intestine; Z87.891 Personal history of nicotine dependence
CPT/HCPCS: 2NBSP; 36415; 73502-LT; 82436; 93005; 93010; 97001-GP; 97110-GO; 97116-GO; 97530-GO; J0131; J0690; J1644; J2405; J2765; J7042

== ENCOUNTER 2016-05-14 17:11 | Emergency (ER) | payer OTHER ==
[~2016-05-14] VITALS: Ht 167.6 cm; Wt 66.7 kg
[~2016-05-14 17:11] MED LIST: AMLODIPINE BESYL5 M1 PO; CALCIUM600 M2 PO; COUMADIN2.5 M1 PO; CYANOCOBAL1000 MCG/2 IM; LOMOTIL 2.5-0.1 EACH PO; MAGNESIUM500 M2 PO; PERCOCET 5-3251 EACH PO; POTASSIUM CHLO20 ME2 PO; VITAMIN D1000 UNI1 PO
[2016-05-14 17:43] LABS: ABSOLUTE BASOPHIL COUNT 0 /CUMM (0.0-0.2); ABSOLUTE EOSINOPHIL COUNT 0.3 /CUMM (0.0-0.7); ABSOLUTE GRANULOCYTE CT 3.1 /CUMM (1.4-6.5); ABSOLUTE LYMPH COUNT 2.3 /CUMM (1.2-3.4); ABSOLUTE MONOCYTE COUNT 0.6 /CUMM (0.10-0.60); BASOPHIL % 0.3 % (0.0-2.0); EOSINOPHIL % 4.1 % (0-5); GRANULOCYTE % 49.9 % (42.2-75.2); HEMATOCRIT 30.7 % (42-52); MEAN CORPUSCULAR HGB CONC 33.6 G/DL (33.0-37.0); MEAN CORPUSCULAR VOLUME 98.3 FL (80.0-94.0); MEAN PLATELET VOLUME 9.1 FL (7.4-10.4); PLATELET COUNT 204 /CUMM (130-400); RBC DISTRIBUTION WIDTH 13.1 % (11.5-14.5); RED BLOOD CELL CT 3.13 /CUMM (4.70-6.10); WHITE BLOOD CELL COUNT 6.3 /CUMM (4.8-10.8)
--- NOTE | 2016-05-14 18:13 | ED GENERAL ADULT ---
History of Present Illness General Chief Complaint: General Adult Stated Complaint: PT IS COUMADIN LEVEL ARE HIGH Source: patient, family, old records Exam Limitations: no limitations Vital Signs & Intake/Output Vital Signs & Intake/Output Vital Signs Date Time Temp Pulse Resp B/P Pulse O2 O2 Flow FiO2 Ox Delivery Rate 05/15 0852 96.7 58 16 136/74 95 Room Air 05/145 97.0 65 18 154/72 96 Room Air Room Air 05/14 1717 96.9 64 16 163/73 95 Room Air ED Intake and Output 05/15 0000 05/14 1200 Intake Total Output Total Balance Patient 147 lb Weight Allergies Coded Allergies: cimetidine (UNKNOWN 05/08/16) Reconcile Medications Amlodipine Besylate 5 MG TABLET 1 TAB PO QAM BP (Reported) Calcium Carbonate (Calcium) 600 MG (1,500 MG) TABLET 1 CAP PO QAM SUPPLEMENT (Reported) Cholecalciferol (Vitamin D3) (Vitamin D) 1,000 UNIT CAPSULE 1 CAP PO QAM SUPPLEMENT (Reported) Cyanocobalamin (Vitamin B-12) (Cyanocobalamin Injection) 1,000 MCG/ML VIAL 1 ML IM QFRI SUPPLEMENT (Reported) Diphenoxylate HCl/Atropine (Lomotil 2.5-0.025 MG Tablet) 2.5 MG-0.025 MG TABLET 1 TAB PO EOD PRN DIARRHEA (Reported) Magnesium Oxide (Magnesium) 500 MG CAPSULE 1 CAP PO QAM SUPPLEMENT (Reported) Magnesium Oxide (Magnesium) 500 MG CAPSULE 0.5 CAP PO QPM SUPPLEMENT ( Reported) Oxycodone HCl/Acetaminophen (Percocet 5-325 MG Tablet) 5 MG-325 MG TABLET 1-2 TAB PO Q4P PRN pain alternatively to tylenol. do not combine. Potassium Chloride 20 MEQ TAB.ER.PRT 1 TAB PO QPM SUPPLEMENT (Reported) Warfarin Sodium (Coumadin) 2.5 MG TABLET 1 TAB PO DAILY blood clot risk reduction skip dose of coumadin today (05/11/16) start tomorrow at 2.5 mg daily dose adjustments according to blood draws for PT/INR, goal INR 2-3 first blood draw to be done on , 05/14/16 if able Triage Note: 85 PT STATES HE HAD ORTHO SURGERY AND WAS D/JV WEDNESDAY - WAS RECEIVING SC HEPARIN IN HOSPITAL AND D/JV HOME ON COUMADIN. TOOK 2 DOSES COUMADIN (LAST DOSE 2.5MG LAST NIGHT). VISITING NURSE TOOK INR TODAY AND REPORTED IT 8.0. PT DENIES ANY COMPLAINTS. Triage Nurses Notes Reviewed? yes Onset: Abrupt Duration: day(s): (1), constant Timing: recent history Injury Environment: home Severity: mild, moderate Severity Numbers: 5 No Modifying Factors: none Associated Symptoms: DENIES HPI: 85-year-old male presents after he had outpatient blood work today that showed he had an INR of 8. The patient was recently started on Coumadin 3 days ago after he had a left surgery performed here by dr pierce. Patient states that the visiting nurse change the bandage daily been no bleeding or drainage from the incision. He denies any other bleeding is been no recent fall or trauma he denies chest pain shortness of breath abdominal pain. He has taken 2 doses of Coumadin 2.5 mg once a day for the past 2 days (PEBBLES SALAZAR) Past History Travel History Traveled to [place] past 21 day No Medical History Any Pertinent Medical History? 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 No (PEBBLES SALAZAR) Review of Systems Review of Systems Constitutional: Reports: see HPI. All Other Systems: Reviewed and Negative Comments Review of systems: See HPI, All other systems negative. Constitutional, no chills no fever, no malaise HEENT: No visual changes no sore throat no congestion, Cardiovascular: No chest pain , no palpitation Skin, no jaundice no rashes, no change in skin Respiratory: No dyspnea no cough no sputum GI: No nausea no vomiting, no diarrhea : No dysuria Muscle skeletal: No joint pain, no back pain, no neck pain, Neurologic: No numbness no headache Psych: No stress Heme/endocrine: No bruising no bleeding Immunology: No lymphadenopathy (PEBBLES SALAZAR) Physical Exam Physical Exam General Appearance: well developed/nourished, no apparent distress, alert, awake , comfortable Comments: Well-developed well-nourished person in no acute distress HEENT: Normal EENT exam; PERRL, EOMI,HEAD is atraumatic. moist mucous membranes. Neck: Supple, normal range of motion Back: Nontender, no CVA tenderness. Full range of motion Cardiovascular: Regular rate and rhythms no murmurs rubs Respiratory: No respiratory distress. Patient speaking in full complete sentences. Breath sounds clear to auscultation bilaterally: NO W/R/R Abdomen: Soft, nontender nondistended, Extremity: No edema, full range of motion of extremities, normal and equal pulses bilaterally, 5 out of 5 strength noted to bilateral upper and lower extremities Neuro: Alert oriented x3, motor sensory normal, There were no obvious focal neurologic abnormalities. Skin: No appreciable rash on exposed skin, skin is warm and dry. Psych: Mood and affect is normal, memory and judgment is normal. Core Measures ACS in differential dx? No CVA/TIA Diagnosis: No Severe Sepsis Present: No Septic Shock Present: No (PEBBLES SALAZAR) Progress Differential Diagnoses I considered the following diagnoses in my evaluation of the patient: [Elevated INR acute on chronic renal insufficiency Plan of Care: Orders Procedure Date/time Status Heart Healthy Diet 05/15 B Active Discharge Patient 05/15 1021 Active PROTHROMBIN TIME 05/15 0700 Complete Patient Data 05/14 1905 Active Vital Signs 05/14 1904 Active Code Status 05/[address] in observation 05/14 1859 Active PROTHROMBIN TIME 05/14 1724 Complete COMPREHENSIVE METABOLIC PANEL 05/14 1724 Complete CBC WITHOUT DIFFERENTIAL 05/14 1724 Complete Laboratory Tests 05/15/16 0645: PT 73.1 *H, INR 7.10 *H 05/14/16 1734: Anion Gap 12, Estimated GFR 34 L, BUN/Creatinine Ratio 21.6, Glucose 93, Calcium 9.4, Total Bilirubin 0.4, AST 18, ALT 20 L, Alkaline Phosphatase 128 H , Total Protein 7.2, Albumin 3.8, Globulin 3.4, Albumin/Globulin Ratio 1.1, PT > 103.0 *H, INR > 10.0 *H, CBC w Diff NO MAN DIFF REQ, RBC 3.13 L, MCV 98.3 H, MCH 33.0 H, RDW 13.1, MPV 9.1, Gran % 49.9, Lymphocytes % 36.2, Monocytes % 9.5 H, Eosinophils % 4.1, Basophils % 0.3, Absolute Granulocytes 3.1, Absolute Lymphocytes 2.3, Absolute Monocytes 0.6, Absolute Eosinophils 0.3, Absolute Basophils 0, PUBS MCHC 33.6 Labs ordered old records reviewed patient's creatinine is at baseline discussed with him his INR. ccase d/w dr cohen will give pt vit k 5mg po. Case management spoke with Dr. hernandez will place in ED obs for repeat INR in am (PEBBLES SALAZAR) (BENITA COHEN MD) Initial ED EKG: none (PEBBLES SALAZAR) Differential Diagnoses I considered the following diagnoses in my evaluation of the patient: Hand-Off Endorsed To: MEME ALFONSO MD Endorsed Time: 1930 Pending: other (ED OBS, REPEAT INR) (BENITA COHEN MD) Hand-Off Endorsed To: BENITA COHEN MD Endorsed Time: 699 Pending: labs (MEME ALFONSO MD) Departure Departure Time of Disposition: 1830 Condition: Stable Clinical Impression Primary Impression: Elevated INR Secondary Impressions: Chronic kidney insufficiency Referrals: TJ DELANEY MD (PCP/Family) Departure Forms: Customer Survey General Discharge Information Observation Note Spoke With: BENITA COHEN MD Physician Advisor Notified: BEV KHAN,DELTA [facility] [facility] Patient In: ED Observation Rationale for Observation: My rational for observation is as follows vitamin K, trend labs, dosage adjustment of Coumadin, premature discharge would BE medically harmful given elevated INR (PEBBLES SALAZAR) Departure Time of Disposition: 800 Disposition: HOME OR SELF CARE Additional Instructions: Hold your Coumadin today Wednesday as well as Wednesday. Wednesday please have your INR rechecked by blood draw. Follow-up with your orthopedic doctor on Wednesday for Coumadin dosing. Return to the ER over the weekend for any bleeding, bruising, headache. PA/LICENSING ANALYST Co-Sign Statement Statement: ED Attending supervision documentation- [X] I saw and evaluated the patient. I have also reviewed all the pertinent lab results and diagnostic results. I agree with the findings and the plan of care as documented in the PA's/LICENSING ANALYST's documentation. [X] I have reviewed the ED Record and agree with the PA's/LICENSING ANALYST's documentation. [] Additions or exceptions (if any) to the PAs/LICENSING ANALYST's note and plan are summarized below: [] (BENITA COHEN MD) PA/LICENSING ANALYST Co-Sign Statement Statement: ED Attending supervision documentation- x I saw and evaluated the patient. I have also reviewed all the pertinent lab results and diagnostic results. I agree with the findings and the plan of care as documented in the PA's/LICENSING ANALYST's documentation. [] I have reviewed the ED Record and agree with the PA's/LICENSING ANALYST's documentation. [] Additions or exceptions (if any) to the PAs/LICENSING ANALYST's note and plan are summarized below: [] (NATY KHAN,MEME) Critical Care Note Critical Care Note Critical Care Time: non-applicable (PEBBLES SALAZAR) ED Attending Observation Initial Observation Note: I have seen and personally examined PEBBLES ALFONSO on 05/14/16 at 1900. I agree with the current emergency department documentation. The disposition (admission or discharge) is uncertain at this time, he needs a period of observation for the following reason(s): [VITAMIN K, REPEAT INT, MONITOR FOR SIGNS OF BLEEDING, MONITOR H/H] The ED Nurse caring for this patient has been personally informed as to what the patient is being observed for. Observation Discharge: I have reevaluated PEBBLES ALFONSO on 05/15/16 at 0801. The patient is: ([X]): Stable for discharge (): To be admitted to Nursing Floor (): To be placed in Observation on Nursing Floor (): For transfer to other facility The patient was being observed for [ELEVATED INR] As a result of that observation, I have determined [patient can go home and he will hold Coumadin today and tomorrow. On Wednesday we will have him have a repeat INR draw for his orthopedic doctor to resume Coumadin demonstration on Wednesday.]. (BENITA COHEN MD) Initial Observation Note: I have seen and personally examined PEBBLES ALFONSO on 05/15/16 at 0605. I agree with the current emergency department documentation. The disposition (admission or discharge) is uncertain at this time, he needs a period of observation for the following reason(s): The ED Nurse caring for this patient has been personally informed as to what the patient is being observed for. Observation Re-Evaluation: I have reevaluated PEBBLES ALFONSO on 05/15/16 at 0605. The physical findings that support the continued need to observe this patient include none but repeat labs required to check INR. (NATY KHAN,MEME)
[2016-05-14 18:24] LABS: PT > 103.0 SEC (9.4-12.5)
[2016-05-15 07:03] LABS: PT 73.1 SEC (9.4-12.5)
[2016-05-15 08:52] VITALS: BP 136/74
== END 2016-05-15 09:55 ==
LOC: ENRESERVTM → ENRESERVDT → CANRESERV → ERH 17:11 → CANBEDREQ 05-15 10:34
PROVIDERS: Physician Assistant Medical; Physician Assistant Surgical
DX: R79.1 Abnormal coagulation profile (principal); N18.9 Chronic kidney disease, unspecified; I10 Essential (primary) hypertension; Z87.891 Personal history of nicotine dependence

== ENCOUNTER 2016-07-10 17:49 | Inpatient (IN) | payer OTHER ==
[~2016-07-10] VITALS: Ht 162.6 cm; Wt 66.7 kg
--- NOTE | 2016-07-10 18:53 | ED GENERAL ADULT ---
History of Present Illness General Chief Complaint: General Adult Stated Complaint: NOLAN DELANEY Source: patient, family Exam Limitations: no limitations Vital Signs & Intake/Output Vital Signs & Intake/Output Vital Signs Date Time Temp Pulse Resp B/P Pulse O2 O2 Flow FiO2 Ox Delivery Rate 07/13 0916 90 136/70 07/13 0647 98.1 93 16 138/72 95 07/12 2225 98.4 61 20 166/86 97 07/12 1459 98.4 60 18 140/60 99 Room Air ED Intake and Output 07/13 0000 07/12 1200 Intake Total 750 200 Output Total 1800 Balance 750 -1600 Intake, IV 10 200 Intake, Oral 740 Output, Urine 1800 Allergies Coded Allergies: cimetidine (UNKNOWN 05/08/16) Reconcile Medications Amlodipine Besylate 5 MG TABLET 1 TAB PO QAM BP (Reported) Calcium Carbonate (Calcium) 600 MG (1,500 MG) TABLET 1 CAP PO QAM SUPPLEMENT (Reported) Cholecalciferol (Vitamin D3) (Vitamin D) 1,000 UNIT CAPSULE 1 CAP PO QAM SUPPLEMENT (Reported) Ciprofloxacin HCl (Cipro) (Unknown Strength) TABLET (Unknown Dose) PO AD ANTIBIOTIC (Reported) Diphenoxylate HCl/Atropine (Lomotil 2.5-0.025 MG Tablet) 2.5 MG-0.025 MG TABLET 1 TAB PO EOD PRN DIARRHEA (Reported) Magnesium Oxide (Magnesium) 500 MG CAPSULE 1 CAP PO QAM SUPPLEMENT (Reported) Magnesium Oxide (Magnesium) 500 MG CAPSULE 0.5 CAP PO QPM SUPPLEMENT ( Reported) Triage Note: PT TO TRIAGE NOLAN ELAINA FOR IV ANTIBIOTICS FOR UTI, R/O URO SEPSIS. STARTED FIRST DOSE OF CIPRO NAIL EXPERT. INFORMED THAT WBC 27 AND AWARE OF PROBABLE ADMISSION. PT ENDORSING FEVERS AND CHILLS AT HOME, LETHARGIC, VOMITED X1 LAST NIGHT. AFEBRILE IN TRIAGE 98.0. AAOX3 Triage Nurses Notes Reviewed? 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 Patient did have episodes of increased INR however he has not been on Coumadin for over 2 weeks. Patient does state for the last 2-3 days he' s been complaining of generalized weakness fatigue and chills. Patient does state for the past 2 days once tonight he has woken up and have 1 episode of nonbloody nonbilious emesis where he states that he feels better after the vomiting episodes. Patient is able tolerate by mouth. Patient denies any fevers chest pain arm pain jaw pain sore throat cough shortness of breath abdominal pain nausea vomiting leg swelling. Patient did obtain blood work today by his primary care Dr. DELANEY where there was a notable white blood cell count 27,000 where patient also was prescribed ciprofloxacin where he took one tablet today for concerns of UTI by primary care doctor. Patient denies any dysuria hematuria or change in frequency of urination. Denies any back pain neck pain neck stiffness (PEBBLES COLEMAN) Past History Travel History Traveled to [place] past 21 day No Medical History Any Pertinent Medical History? 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 No (PEBBLES COLEMAN) Review of Systems Review of Systems Constitutional: Reports: see HPI, chills, malaise, weakness. EENTM: Reports: no symptoms. Respiratory: Denies: cough, short of breath. Cardiovascular: Reports: no symptoms. GI: Reports: no symptoms. Genitourinary: Reports: see HPI. Musculoskeletal: Reports: no symptoms. Skin: Reports: no symptoms. Neurological/Psychological: Reports: no symptoms. Hematologic/Endocrine: Reports: no symptoms. Immunologic/Allergic: Reports: no symptoms. All Other Systems: Reviewed and Negative (PEBBLES COLEMAN) Physical Exam Physical Exam General Appearance: well developed/nourished, no apparent distress, alert Comments: Well-developed well-nourished person in no acute distress HEENT: Normal EENT exam, extraocular motion intact, no nystagmus. Pupils equally round and reactive to light and accommodation. Nose is atraumatic. External auditory canal and Tympanic membranes clear. Pharynx normal. No swelling or edema. Neck: Supple, no lymphadenopathy, normal range of motion without pain or tenderness Back: Nontender, no CVA tenderness. Cardiovascular: Regular rate and rhythms no murmurs rubs or gallops, normal JVP Respiratory: Chest nontender. No respiratory distress.breath sounds clear to auscultation bilaterally Abdomen: Soft, nontender nondistended, no appreciable organomegaly. Normal bowel sounds. No ascites Extremity: No edema, no calf tenderness to palpation, normal and equal pulses. Neuro: Alert oriented x3, motor sensory normal, Skin: No appreciable rash on exposed skin, skin is warm and dry. Psych: Mood and affect is normal, memory and judgment is normal. Core Measures ACS in differential dx? No CVA/TIA Diagnosis: No Severe Sepsis Present: No BC x2: Yes Lactic Acid x2: Yes IV ABX Broad Spectrum: Yes NS/LR Started: Yes Septic Shock Present: No (PEBBLES COLEMAN) Progress Differential Diagnoses I considered the following diagnoses in my evaluation of the patient: [URI, sepsis, pneumonia, pyelonephritis, UTI, appendicitis, diverticulitis, viral syndrome, meningitis] Plan of Care: Orders Procedure Date/time Status THYROID STIMULATING HORMONE 07/13 06 Complete CBC WITHOUT DIFFERENTIAL 07/13 0600 Complete BASIC ELECTROLYTES PLUS BUN&CR 07/13 0600 Complete Regular Diet 07/12 L Active Nursing Misc 07/12 UNK Active Current Medications Sig/Lico Start time Last Medication Dose Stop Time Status Admin Cephalexin 250 MG Q8H 07/13 1000 AC (Keflex) Heparin Sodium 5,000 UNIT Q8 07/10 2200 AC (Porcine) Acetaminophen 325 MG Q6 PRN 07/10 2130 AC (Tylenol) Oxycodone HCl 5 MG Q6 PRN 07/10 2130 AC (Roxicodone) Oxycodone/ 2 TAB Q6 PRN 07/10 2130 AC Acetaminophen (Percocet) Laboratory Tests 07/13/16 0705: Anion Gap 10, Estimated GFR 26 L, BUN/Creatinine Ratio 14.6, TSH 4.530 H, CBC w Diff NO MAN DIFF REQ, RBC 2.79 L, MCV 96.6 H, MCH 31.8 H, RDW 15.5 H, MPV 9.4, Gran % 66.8, Lymphocytes % 22.2, Monocytes % 8.5, Eosinophils % 2.0, Basophils % 0.5, Absolute Granulocytes 4.3, Absolute Lymphocytes 1.4, Absolute Monocytes 0.5, Absolute Eosinophils 0.1, Absolute Basophils 0, PUBS MCHC 32.9 L Patient currently is in no apparent distress afebrile and has unremarkable physical exam findings. Patient does have noted 27,000 white blood cell count and bands IV fluid establishment will be placed blood culture pending urine culture pending (PEBBLES COLEMAN) Diagnostic Imaging: Viewed by Me: Radiology Read. CXR Impression: SEE COMMENTS Initial ED EKG: normal p-waves, normal QRS complex, 60 BPM MOTION ARTIFACT NOTED Prior EKG: unchanged Comments: PATIENT: PEBBLES ALFONSO PRESENT AGE: 85 PATIENT ACCOUNT NO: [id number] : 32 LOCATION: [facility] ORDERING PHYSICIAN: PEBBLES KRUSE SERVICE DATE: 07/10/16 EXAM TYPE: RAD - XRY-CHEST XRAY, PA AND LATERAL EXAMINATION: XR CHEST, 2 VIEWS CLINICAL INFORMATION: Chills. Malaise. COMPARISON: 05/08/2016 TECHNIQUE: PA and lateral views of the chest were obtained. FINDINGS: Cardiac silhouette is enlarged, unchanged. Thoracic aorta is tortuous. There is blunting of the right lateral and posterior costophrenic sulci which is chronic and unchanged. Pleural parenchymal scarring is also present at the left lateral lung base. No consolidation or pneumothorax. Multilevel degenerative disc disease is present in the thoracic spine. No acute fractures. IMPRESSION: Chronic pleural parenchymal scarring at the lung bases bilaterally. No acute pulmonary consolidation (PEBBLES COLEMAN) Departure Departure Disposition: STILL A PATIENT Condition: Stable Clinical Impression Primary Impression: Leukocytosis Secondary Impressions: Bandemia, UTI (urinary tract infection) Referrals: TJ DELANEY MD (PCP/Family) Departure Forms: Customer Survey General Discharge Information Admission Note Spoke With: TJ DELANEY MD Documentation of Exam: Documentation of any treatments & extenuating circumstances including Concerns Regarding Discharge (functional status, medication knowledge or non-compliance, living conditions, etc.) that warrant an admission rather than observation: [ Discussed patient with Dr. DELANEY who agrees with general medicine admission for concerns of UTI and bandemia which urine and blood cultures currently pending. Patient requires IV fluid resuscitation and IV antibiotics. Outpatient treatment at this time would be medically harmful] (PEBBLES COLEMAN) PA/VP SOFTWARE Co-Sign Statement Statement: ED Attending supervision documentation- [X] I saw and evaluated the patient. I have also reviewed all the pertinent lab results and diagnostic results. I agree with the findings and the plan of care as documented in the PA's/VP SOFTWARE's documentation. [X] I have reviewed the ED Record and agree with the PA's/VP SOFTWARE's documentation. [] Additions or exceptions (if any) to the PAs/VP SOFTWARE's note and plan are summarized below: [] (ANA KHAN,BENITA) Critical Care Note Critical Care Note Critical Care Time: 30-74 min (PEBBLES COLEMAN)
[2016-07-10] MEDS ORDERED: CIPRO500 M1 PO (19:07)
--- NOTE | 2016-07-10 20:16 | RADIOLOGY REPORT ---
EXAMINATION: XR CHEST, 2 VIEWS CLINICAL INFORMATION: Chills. Malaise. COMPARISON: 05/08/2016 TECHNIQUE: PA and lateral views of the chest were obtained. FINDINGS: Cardiac silhouette is enlarged, unchanged. Thoracic aorta is tortuous. There is blunting of the right lateral and posterior costophrenic sulci which is chronic and unchanged. Pleural parenchymal scarring is also present at the left lateral lung base. No consolidation or pneumothorax. Multilevel degenerative disc disease is present in the thoracic spine. No acute fractures. IMPRESSION: Chronic pleural parenchymal scarring at the lung bases bilaterally. No acute pulmonary consolidation
--- NOTE | 2016-07-10 21:48 | History & Physical ---
AARON KHAN,[facility] 07/10/16 2147: General Information and HPI MD Statement: I have seen and personally examined PEBBLES ALFONSO and documented this H&P. The patient is a 85 year old M who presented with a patient stated chief complaint of malaise and abnormal lab results. Source of Information: patient, family Exam Limitations: no limitations History of Present Illness: This is a 85-year-old gentleman with past medical history of chronic kidney disease, hypertension, diverticulosis, colon cancer status post resection and in remission is sent in by his primary care physician (Dr. Delaney) for evaluation of abnormal lab work(elevated WBC) and generalized malaise. Patient reports being below his baseline for the past 1-2 weeks feeling general malaise and fatigue. Last night, he reports he had an episode of chills and vomiting (no blood and nonbilious). Patient also reports a decrease in fluid intake. Patient does deny any fevers, sick contacts, or recent travel. He however points out that he was recently treated for UTI about 2 weeks ago with an antibiotic course of 10 days ciprofloxacin. She denies any dizziness, vision changes, headaches, shortness of breath, chest pain, palpitation, focal neurological deficits, musculoskeletal pain, abdominal pain, or dysuria. Baseline patient is independent with his ADLs. Allergies/Medications Allergies: Coded Allergies: cimetidine (UNKNOWN 05/08/16) Home Med list Amlodipine Besylate 5 MG TABLET 1 TAB PO QAM BP (Reported) Calcium Carbonate (Calcium) 600 MG (1,500 MG) TABLET 1 CAP PO QAM SUPPLEMENT (Reported) Cholecalciferol (Vitamin D3) (Vitamin D) 1,000 UNIT CAPSULE 1 CAP PO QAM SUPPLEMENT (Reported) Ciprofloxacin HCl (Cipro) (Unknown Strength) TABLET (Unknown Dose) PO AD ANTIBIOTIC (Reported) Diphenoxylate HCl/Atropine (Lomotil 2.5-0.025 MG Tablet) 2.5 MG-0.025 MG TABLET 1 TAB PO EOD PRN DIARRHEA (Reported) Magnesium Oxide (Magnesium) 500 MG CAPSULE 1 CAP PO QAM SUPPLEMENT (Reported) Magnesium Oxide (Magnesium) 500 MG CAPSULE 0.5 CAP PO QPM SUPPLEMENT ( Reported) Past History Travel History Traveled to [place] past 21 day No Medical History Neurological: NONE EENT: cataracts Cardiovascular: hypertension Respiratory: NONE Gastrointestinal: diverticulitis Hepatic: NONE Renal: chronic kidney disease Musculoskeletal: CHIP IN THE KNEE Psychiatric: NONE Endocrine: NONE Blood Disorders: NONE Cancer(s): colon/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 Cardiovascular: Reports: no symptoms. Respiratory: Reports: no symptoms. GI: Reports: see HPI. Genitourinary: Reports: no symptoms. Musculoskeletal: Reports: no symptoms. Skin: Reports: no symptoms. Neurological/Psychological: Reports: no symptoms. Hematologic/Endocrine: Reports: no symptoms. Immunologic/Allergic: Reports: no symptoms. Exam & Diagnostic Data Last 24 Hrs of Vital Signs/I&O Vital Signs Date Time Temp Pulse Resp B/P Pulse O2 O2 Flow FiO2 Ox Delivery Rate 07/11 2219 98.4 64 64 108/60 100 Room Air 07/10 2208 97.2 61 18 108/60 99 Room Air 07/10 1948 98.0 61 18 128/68 95 Room Air 07/10 1808 98.0 62 18 131/70 98 Room Air Intake & Output 07/11 0800 07/11 0000 07/10 1600 Intake Total 278 Output Total Balance 278 Intake, IV 38 Intake, Oral 240 Patient 66.678 kg Weight Physical Exam General Appearance Alert, Oriented X3, Cooperative, No Acute Distress Skin No Significant Lesion HEENT Atraumatic, PERRLA, dry oral mucosa Neck Supple, No JVD Lymphatic Cervical nl Cardiovascular Regular Rate, Normal S1, Normal S2, No Murmurs Lungs Clear to Auscultation, Normal Air Movement Abdomen Normal Bowel Sounds, Soft, No Tenderness, No Hepatospenomegaly Neurological Normal Speech, Normal Tone, Sensation Intact Extremities No Clubbing, No Cyanosis, No Edema, Normal Pulses Vascular Normal Pulses, Pulses Symmetrical Assessment/Plan Assessment: This is a 85-year-old gentleman with a recent history of UTI couple weeks ago treated with 10 day Cipro course presents for evaluation of general malaise and leukocytosis with bandemia. Pt vitals obtain at the ED were unremarkable. Lab work done on July 10 showed leukocytosis with white blood count cell count of 27.8 with bandemia. Assessment and plan UTI Patient was recently treated for a UTI with 10 day ciprofloxacin dose. It is possible that patient exhibited antibiotic treatment failure with Cipro as he still presenting with cytosis with bandemia and generalized malaise. Plan Will admit to general medicine floor Will switch from oral Cipro to IV ceftriaxone Will trend CBC Obtain CT scan abdomen pelvis #ZHANNA on CKD Acute worsening is most likely secondary to decrease fluid intake. Will need to rule out obstructive uropathy. Plan Nomo saline hydration 75 MLS per hour Will trend BEP Will avoid nephrotoxic medication # history of hypertension Continue amlodipine home med #History of short-bowel syndrome Will continue calcium and magnesium As Ranked By This Provider Problem List: 1. UTI (urinary tract infection) Core Measures/Miscellaneous Acute Coronary Syndrome ACS Diagnosis: No Cerebrovascular Accident CVA/TIA Diagnosis: No Congestive Heart Failure CHF Diagnosis: No Venous Thromboembolism VTE Risk Factors: Age > 40 No [facility] VTE prophylaxis d/t: No contraindications No VTE Pharm Prophylaxis d/t: No contraindications VTE Diagnosis: No VTE Type: NONE VTE Confirmed by (Test): NONE Severe Sepsis Severe Sepsis Present: No BC x2: Yes Lactic Acid x2: Yes IV ABX Broad Spectrum: Yes NS/LR Started: Yes Septic Shock Septic Shock Present: No Miscellaneous Documentation Attending Case Discussed With: TJ DELANEY MD Primary Care Physician: TJ DELANEY MD Patient sees these Specialists .. Level of Patient Care: General Medicine MIRELLA HOLLOWAY 07/10/16 7960: Resident Review Statement Resident Statement: examined this patient, discussed with internal communications intern Other Findings: Patient is a 85-year-old gentleman with a past medical history of 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 Hathaway's office for evaluation of generalized weakness, fatigue, chills and abnormal blood work. Patient reports that for the past few weeks he has been feeling weak, fatigued and tired. Yesterday he woke up in the middle of the night with 1 episode of nonbilious vomiting. He denies any fevers, chest pain, abdominal pain, urgency, frequency, dysuria, blood in her urine and stools. He did feel very cold over the past few days using a heating pad to comfort him. He noted that he had a breakout of blisters on his lips over the past few days. His by mouth intake has been poor and he has been drinking adequate fluids. Daughter states that he was recently treated for a UTI with 10 day course of ciprofloxacin 2 weeks ago. His weakness, chills made him go to his PCP this morning where he had blood work which was abnormal. His white cell count significantly elevated to 27,000 and therefore he was asked by to come to ER for evaluation. In the ED vitals temperature 90.8, pulse 62, respiration 18, blood pressure 131/ 70, saturating 98% on room air. Blood work from 07/10/2016 shows white count of 27.8 with 8 bands, H&H of 02/22 0.1, MCV 96.4, sodium of 140, potassium 3.3, creatinine 2.4, lactic acid 2.1, troponins negative UA was hazy, with small leukocyte esterase, 25-50 WBCs, small hemoglobin, 5-10 RBCs. Chest x-ray: Chronic totally parenchymal scarring at the bases bilaterally/no acute findings. He received 2 L fluid boluses and IV ceftriaxone in the ED Physical exam: Alert and oriented 3, mild discomfort HEENT: PERRLA, EOMI, small scabs over the lips Chest: Clear breath sounds CVS: S1 and S2 heard, no murmurs rubs or gallops Abdomen: Bowel sounds positive, no tenderness, guarding or rigidity, no CVA tenderness Extremities: Trace bilateral pedal edema Plan: 1.Recurrent UTI: Dirty urine. Recently treated for UTI 2 weeks back. Completed a ten-day course of ciprofloxacin. Has grown Escherichia coli in the past. Was found to have a white count of 27,000 with bandemia on labs. Hypothermic in PCPs office and morning. -Admit to [facility] -Vitals every shift -Gentle hydration with IV fluids at 75 mL an hour X2 bags. Patient received 2 L in the ED -Continue IV ceftriaxone pending cultures -Urine and blood cultures -Continue Tylenol for fever -Trend white count -CT scan of pelvis without contrast to rule out pyelonephritis 2. Hypertension -Continue amlodipine 3.ZHANNA on CKD: Baseline creatinine around 1.9 in April 2016. Could be secondary to a hydration/obstruction -Check a CAT scan of pelvis without IV contrast -Continue gentle hydration with IV normal saline -Urology consult in a.m. -Avoid nephrotoxins -Repeat BEP am -Replete potassium 3 Short-bowel syndrome -Continue magnesium and calcium supplements Heart healthy diet [id number] pain control DNR/DNI.
[2016-07-10 22:20] VITALS: BP 108/60
--- NOTE | 2016-07-11 07:14 | PN- Housestaff ---
Subjective Follow-up For: Recurrent UTI Complaints: feels a little better. Subjective: Patient seen and examined at bedside. Feels little better with IV hydration. No fevers/chills overnight. He has been sleeping well. Review of Systems Constitutional: Reports: malaise, weakness. EENTM: Reports: no symptoms. Cardiovascular: Reports: no symptoms. Respiratory: Reports: no symptoms. Gastrointestinal: Reports: nausea. Genitourinary: Reports: no symptoms. Musculoskeletal: Reports: muscle pain, muscle stiffness. Skin: Reports: lesions (lip blisters). Neurological/Psychological: Reports: no symptoms. Objective Last 24 Hrs of Vital Signs/I&O Vital Signs Date Time Temp Pulse Resp B/P Pulse O2 O2 Flow FiO2 Ox Delivery Rate 07/100 98.4 64 64 108/60 100 Room Air 07/11 2207 97.2 61 18 108/60 99 Room Air 07/10 1948 98.0 61 18 128/68 95 Room Air 07/10 1808 98.0 62 18 131/70 98 Room Air Intake & Output 07/11 0800 07/11 0000 07/10 1600 Intake Total 840 278 Output Total 550 Balance 290 278 Intake, IV 600 38 Intake, Oral 240 240 Output, Urine 550 Patient 66.678 kg Weight Physical Exam General Appearance: Alert, Oriented X3, Cooperative, No Acute Distress Skin: No Rashes, No Breakdown, small scabs over the lips HEENT: Atraumatic, PERRLA, EOMI, dry mucous membranes, brown tongue Neck: Supple, No JVD Lymphatic: Cervical nl Cardiovascular: Regular Rate, Normal S1, Normal S2, No Murmurs Lungs: Clear to Auscultation, Normal Air Movement Abdomen: Normal Bowel Sounds, Soft, No Tenderness, no cva tenderness Extremities: trace b/l pedal edema Current Medications: Current Medications Sig/Lico Start time Last Medication Dose Route Stop Time Status Admin Acetaminophen 325 MG Q6 PRN 07/10 2130 AC PO Amlodipine Besylate 5 MG QAM 07/11 1000 AC PO Calcium 600 MG QAM 07/11 1000 AC PO Ceftriaxone Sodium 1,000 MG ONCE ONE 07/10 2030 DC 07/10 IV 07/10 Ceftriaxone Sodium 0 .STK-MED ONE 07/10 2028 DC .ROUTE Heparin Sodium 5,000 UNIT Q8 07/10 2199 AC (Porcine) SC Lidocaine 1 PAT DAILY 07/10 2146 CAN EXT Magnesium Oxide 400 MG QPM 07/11 2200 AC PO Magnesium Oxide 400 MG QAM 07/11 1000 AC PO Magnesium Oxide 250 MG QPM 07/10 2200 DC 07/10 PO 2350 Oxycodone HCl 5 MG Q6 PRN 07/10 2130 AC PO Oxycodone/ 2 TAB Q6 PRN 07/10 213 AC Acetaminophen PO Potassium Chloride 40 MEQ ONCE ONE 07/10 2230 DC 07/10 PO 07/10 223 2350 Potassium Chloride 20 MEQ ONCE ONE 07/10 2230 DC 07/10 PO 07/10 223 2350 Sodium Chloride 1,000 ML Q13H 07/10 221 AC 07/10 IV 07/12 0014 2239 Sodium Chloride 1,000 ML BOLUS ONE 07/10 2030 DC 07/10 IV 07/10 Sodium Chloride 1,000 ML BOLUS ONE 07/10 1900 DC 07/10 IV 07/10 1959 1920 Last 24 Hrs of Lab/Jeff Results Last 24 Hrs of Labs/Mics: Laboratory Tests 07/11/16 0620: Sodium Pending, Potassium Pending, Chloride Pending, Carbon Dioxide Pending, Anion Gap Pending, BUN Pending, Creatinine Pending, BUN/Creatinine Ratio Pending , CBC w Diff Pending, WBC Pending, RBC Pending, Hgb Pending, Hct Pending, MCV Pending, MCH Pending, RDW Pending, Plt Count Pending, MPV Pending, PUBS MCHC Pending 07/10/162155: Lactic Acid 0.9 07/10/162101: Lactic Acid Cancelled 07/10/161907: Lactic Acid 2.1 07/10/16 190: Urine Color YEL, Urine Clarity HAZY H, Urine pH 6.0, Ur Specific [place] 1.015, Urine Protein 30 H, Urine Ketones NEG, Urine Nitrite NEG, Urine Bilirubin NEG, Urine Urobilinogen 0.2, Ur Leukocyte Esterase SMALL H, Ur Microscopic SEDIMENT EXAMINED, Urine RBC 5-10 H, Urine WBC 25-50 H, Ur Epithelial Cells MOD H, Urine Hemoglobin SMALL H, Urine Glucose NEG Microbiology 07/11 2211 URINE ROUT: Urine Culture - CAN Cancelled: DUPLICATE AT 1911 - SEE [id number] 07/11 2211 BLOOD: Blood Culture - COLB 07/11 2211 BLOOD: Blood Culture - COLB 07/11 1915 BLOOD: Blood Culture - RECD 07/10 1909 NASOPHARYN: Influenza Virus A & B Rapid Smear - COMP 07/11 1907 BLOOD: Blood Culture - RECD 07/10 1901 URINE ROUT: Urine Culture - RECD Assessment/Plan Assessment: Patient is a 85-year-old gentleman with a past medical history of 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 Hathaway's office for evaluation of generalized weakness, fatigue, chills and abnormal blood work. Blood work from 07/10/2016 shows white count of 27.8 with 8 bands, H&H of 10/30 0.1, MCV 96.4, sodium of 140, potassium 3.3, creatinine 2.4, lactic acid 2.1, troponins negative UA was hazy, with small leukocyte esterase, 25-50 WBCs, small hemoglobin, 5-10 RBCs. Chest x-ray: Chronic totally parenchymal scarring at the bases bilaterally/no acute findings. He received 2 L fluid boluses and IV ceftriaxone in the ED 1.Recurrent UTI: Dirty urine. Recently treated for UTI 2 weeks back. Completed a ten-day course of ciprofloxacin. Has grown Escherichia coli in the past. Was found to have a white count of 27,000 with bandemia on labs. Hypothermic in PCPs office and morning. -Admit to [facility] -Vitals every shift -Gentle hydration with IV fluids at 75 mL an hour X2 bags. Patient received 2 L in the ED -Continue IV ceftriaxone pending cultures -Urine and blood cultures -Continue Tylenol for fever -Trend white count -CT scan of pelvis without contrast to rule out pyelonephritis 2. Hypertension -Continue amlodipine 3.ZHANNA on CKD: Baseline creatinine around 1.9 in April 2016. Could be secondary to a hydration/obstruction -Check a CAT scan of pelvis without IV contrast -Continue gentle hydration with IV normal saline -Urology consult in a.m. -Avoid nephrotoxins -Repeat BEP am -Replete potassium 3 Short-bowel syndrome -Continue magnesium and calcium supplements Heart healthy diet Budk-yz-zlleoret pain control DNR/DNI. DVT prophylaxis subcutaneous heparin Problem List: 1. UTI (urinary tract infection) 2. Chronic kidney insufficiency 3. ZHANNA (acute kidney injury) Pain Ratin Pain Location: na Pain Goal: Remain pain free Pain Plan: prn tylenol Tomorrow's Labs & Rationales: cbc....uti bep...hypokalemia
[2016-07-11 07:27] VITALS: BP 140/60
--- NOTE | 2016-07-11 08:19 | Cons- Urology ---
General Information and HPI Consulting Request Date of Consult: 07/11/16 Requested By: Medical service TJ DELANEY MD Reason for Consult: Recurrent UTI Source of Information: patient, old records Exam Limitations: no limitations History of Present Illness: This patient is followed by Dr De Oliveira of urology for BPH. About 10 days ago he was diagnosed with a UTI and was treated with cipro. He is now admitted with a feeling of weakness and chills. Admission labs show leukocytosis and a U/A c/w persistent UTI, although moderate epithelial celss were in the U/A. Since admission he was started on ceftriaxone and feels improved. He denies any dysuria. He has nocturia 2-3 times and some mild daytime frequency. Last imaging was in 2016 and showed and septated cyst in the R kidney with some cortical thinning, and prostatic enlargement. Allergies/Medications Allergies: Coded Allergies: cimetidine (UNKNOWN 05/08/16) Home Med List: Amlodipine Besylate 5 MG TABLET 1 TAB PO QAM BP (Reported) Calcium Carbonate (Calcium) 600 MG (1,500 MG) TABLET 1 CAP PO QAM SUPPLEMENT (Reported) Cholecalciferol (Vitamin D3) (Vitamin D) 1,000 UNIT CAPSULE 1 CAP PO QAM SUPPLEMENT (Reported) Ciprofloxacin HCl (Cipro) (Unknown Strength) TABLET (Unknown Dose) PO AD ANTIBIOTIC (Reported) Diphenoxylate HCl/Atropine (Lomotil 2.5-0.025 MG Tablet) 2.5 MG-0.025 MG TABLET 1 TAB PO EOD PRN DIARRHEA (Reported) Magnesium Oxide (Magnesium) 500 MG CAPSULE 1 CAP PO QAM SUPPLEMENT (Reported) Magnesium Oxide (Magnesium) 500 MG CAPSULE 0.5 CAP PO QPM SUPPLEMENT ( Reported) Current Medications: Current Medications Sig/Lico Start time Last Medication Dose Route Stop Time Status Admin Acetaminophen 325 MG Q6 PRN 07/10 2130 AC PO Amlodipine Besylate 5 MG QAM 07/11 1000 AC PO Calcium 600 MG QAM 07/11 1000 AC PO Ceftriaxone Sodium 1,000 MG ONCE ONE 07/10 2030 DC 07/10 IV 07/10 Ceftriaxone Sodium 0 .STK-MED ONE 07/10 2028 DC .ROUTE Heparin Sodium 5,000 UNIT Q8 07/10 2200 AC (Porcine) SC Lidocaine 1 PAT DAILY 07/10 2146 CAN EXT Magnesium Oxide 400 MG QPM 07/11 2200 AC PO Magnesium Oxide 400 MG QAM 07/11 1000 AC PO Magnesium Oxide 250 MG QPM 07/10 2200 DC 07/10 PO 2350 Oxycodone HCl 5 MG Q6 PRN 07/10 2130 AC PO Oxycodone/ 2 TAB Q6 PRN 07/10 2130 AC Acetaminophen PO Potassium Chloride 40 MEQ ONCE ONE 07/10 2230 DC 07/10 PO 07/10 2231 2350 Potassium Chloride 20 MEQ ONCE ONE 07/10 2230 DC 07/10 PO 07/10 2231 2350 Sodium Chloride 1,000 ML Q13H 07/10 2215 AC 07/10 IV 07/12 0014 2239 Sodium Chloride 1,000 ML BOLUS ONE 07/10 2030 DC 07/10 IV 07/10 2128 205 Sodium Chloride 1,000 ML BOLUS ONE 07/10 1900 DC 07/10 IV 07/10 Past History Medical History Blood Transfusion Hx: Yes Neurological: NONE EENT: cataracts Cardiovascular: hypertension Respiratory: NONE Gastrointestinal: diverticulitis Hepatic: NONE Renal: chronic kidney disease Musculoskeletal: CHIP IN THE KNEE Psychiatric: NONE Endocrine: NONE Blood Disorders: NONE Cancer(s): colon/rectal cancer SERVICES ADVISOR/Reproductive: NONE Surgical History Pertinent Surgical History: colon resection Psychosocial History Where Do You Live? Home Services at Home: None Smoking Status: Former Smoker Exam & Diagnostic Data Vital Signs and I&O Vital Signs Date Time Temp Pulse Resp B/P Pulse O2 O2 Flow FiO2 Ox Delivery Rate 07/11 726 98.3 55 18 140/60 97 Room Air 07/11 2219 98.4 64 64 108/60 100 Room Air 07/11 2207 97.2 61 18 108/60 99 Room Air 07/11 1947 98.0 61 18 128/68 95 Room Air 07/11 1807 98.0 62 18 131/70 98 Room Air Intake & Output 07/11 1600 07/11 0800 07/11 0000 07/10 1600 07/10 0800 07/10 0000 Intake Total 840 278 Output Total 550 Balance 290 278 Intake, IV 600 38 Intake, Oral 240 240 Output, Urine 550 Patient 147 lb Weight No acute distress, comfortable Back: no CVA tenderness Abd: soft and non tender. Midline surgical scar well healed Genitalia: normal male Laboratory Tests 07/11 07/10 07/10 07/10 0620 2156 2102 1908 Chemistry Sodium (137 - 145 mmol/L) 141 Potassium (3.5 - 5.1 mmol/L) 4.3 Chloride (98 - 107 mmol/L) 116 H Carbon Dioxide (22 - 30 mmol/L) 14 L Anion Gap (5 - 16) 10 BUN (9 - 20 mg/dL) 38 H Creatinine (0.7 - 1.2 mg/dL) 2.4 H Estimated GFR (>60 ml/min) 26 L BUN/Creatinine Ratio (7 - 25 %) 15.8 Lactic Acid (0.7 - 2.1 mmol/L) 0.9 Cancelled 2.1 Hematology CBC w Diff Pending WBC Pending RBC Pending Hgb Pending Hct Pending MCV Pending MCH Pending RDW Pending Plt Count Pending MPV Pending PUBS MCHC Pending 07/10 1901 Urines Urine Color (YEL,AMB,STR) YEL Urine Clarity (CLEAR) HAZY H Urine pH (5.0 - 8.0) 6.0 Ur Specific [place] (1.001 - 1.035) 1.015 Urine Protein (NEG,<30 MG/DL) 30 H Urine Ketones (NEG) NEG Urine Nitrite (NEG) NEG Urine Bilirubin (NEG) NEG Urine Urobilinogen (0.1 - 1.0 EU/dl) 0.2 Ur Leukocyte Esterase (NEG) SMALL H Ur Microscopic SEDIMENT EXAMINED Urine RBC (0 - 5 /HPF) 5-10 H Urine WBC (0 - 2 /HPF) 25-50 H Ur Epithelial Cells (NONE,FEW) MOD H Urine Hemoglobin (NEG) SMALL H Urine Glucose (N MG/DL) NEG Assessment/Plan Assessment/Plan Imp: 1. Probable recurrent/persistent UTI 2. Prostatic hypertrophy 3. Septated R renal cyst 4. CKD Plan: 1. f/u repeat urine C&S 2. Agree with ceftriaxone for now 3. Non contrast CT of abd and pelvis 4. Would have nurses check pvr by bladder scan Consult Acknowledgment - Thank you for your consult request.
[2016-07-11 08:25] LABS: ABSOLUTE BASOPHIL COUNT 0 /CUMM (0.0-0.2); ABSOLUTE EOSINOPHIL COUNT 0.1 /CUMM (0.0-0.7); ABSOLUTE GRANULOCYTE CT 13.4 /CUMM (1.4-6.5); ABSOLUTE LYMPH COUNT 1.5 /CUMM (1.2-3.4); ABSOLUTE MONOCYTE COUNT 0.5 /CUMM (0.10-0.60); BASOPHIL % 0.1 % (0.0-2.0); EOSINOPHIL % 0.6 % (0-5); MEAN CORPUSCULAR HGB 31.3 PG (27.0-31.0); MEAN CORPUSCULAR HGB CONC 32.2 G/DL (33.0-37.0); MEAN CORPUSCULAR VOLUME 97.3 FL (80.0-94.0); MEAN PLATELET VOLUME 8.6 FL (7.4-10.4); PLATELET COUNT 139 /CUMM (130-400); RBC DISTRIBUTION WIDTH 15.1 % (11.5-14.5); RED BLOOD CELL CT 2.47 /CUMM (4.70-6.10); WHITE BLOOD CELL COUNT 15.5 /CUMM (4.8-10.8)
--- NOTE | 2016-07-11 08:29 | Admission Certification ---
Admission Certification Certification Statement - As attending physician, I certify that at the time of - admission, based on clinical presentation, severity of - symptoms, need for further diagnostic testing and - therapeutic interventions, and risk of adverse outcomes - without in-hospital treatment, in my clinical assessment, - this patient requires an acute hospital stay for a minimum - of two nights or longer. I have also considered psychsocial - factors such as support system, advanced age, financial - issues, cognitive issues, and failed out-patient treatments, - past re-admission history, safety of patient, and lack of - compliance as applicable. Specific rationale supporting this admission is: Patient was admitted for a urosepsis recurrent urosepsis with symptomatic with fever or chills and Reiger's. Admitted for IV antibiotics
--- NOTE | 2016-07-11 08:36 | PN- Att Addend ---
Attending Addendum Attending Brief Note Attending note. 82-year-old gentleman comes the office with the fever chills and feeling very cold. With mild dysuria symptoms. Was not his usual self he was feeling very weak and extremely tired. Recently was diagnosed with UTI Escherichia coli UTI sensitive to Cipro was finished her 10 day course of Cipro and after that he was feeling fine. His urine was checked in the office which was positive for leukocytes. He has nocturia with some dysuria and frequency Labs were done yesterday morning before his visit to the office patient elevated white count of 28,000 with evidence of acute kidney injury and therefore was admitted to the hospital for IV antibiotics and treating his hypokalemia as well as acute kidney injury. History of chronic kidney disease stage II or stage III 's. Current Medications Sig/Lico Start time Last Medication Dose Route Stop Time Status Admin Acetaminophen 325 MG Q6 PRN 07/10 2130 AC PO Amlodipine Besylate 5 MG QAM 07/11 1000 AC PO Calcium 600 MG QAM 07/11 1000 AC PO Ceftriaxone Sodium 1,000 MG ONCE ONE 07/10 2029 DC 07/10 IV 07/10 Ceftriaxone Sodium 0 .STK-MED ONE 07/10 2028 DC .ROUTE Heparin Sodium 5,000 UNIT Q8 07/10 2200 AC (Porcine) SC Lidocaine 1 PAT DAILY 07/10 2146 CAN EXT Magnesium Oxide 400 MG QPM 07/11 2200 AC PO Magnesium Oxide 400 MG QAM 07/11 1000 AC PO Magnesium Oxide 250 MG QPM 07/10 2200 DC 07/10 PO 2350 Oxycodone HCl 5 MG Q6 PRN 07/10 2130 AC PO Oxycodone/ 2 TAB Q6 PRN 07/10 2130 AC Acetaminophen PO Potassium Chloride 40 MEQ ONCE ONE 07/10 223 DC 07/10 PO 07/10 223 2350 Potassium Chloride 20 MEQ ONCE ONE 07/10 2230 DC 07/10 PO 07/10 223 2350 Sodium Chloride 1,000 ML Q13H 07/10 2215 AC 07/10 IV 07/12 0014 2239 Sodium Chloride 1,000 ML BOLUS ONE 07/10 2029 DC 07/10 IV 07/10 Sodium Chloride 1,000 ML BOLUS ONE 07/10 1900 DC 07/10 IV 07/10 195 1920 Vital Signs Date Time Temp Pulse Resp B/P Pulse O2 O2 Flow FiO2 Ox Delivery Rate 07/11 0727 98.3 55 18 140/60 97 Room Air 07/10 2220 98.4 64 64 108/60 100 Room Air 07/108 97.2 61 18 108/60 99 Room Air 07/10 1948 98.0 61 18 128/68 95 Room Air 07/10 1808 98.0 62 18 131/70 98 Room Air Intake & Output 07/11 1600 07/11 0800 07/11 0000 Intake Total 840 278 Output Total 550 Balance 290 278 Intake, IV 600 38 Intake, Oral 240 240 Output, Urine 550 Patient 147 lb Weight On examination patient is awake alert oriented. Comfortable in bed Number is dry. Neck is supple JVD is not raised no carotid bruit present. S1-S2 is normal Lungs are clear Abdomen is soft nontender no masses no organomegaly bowel sounds are present. Extremities are normal with a trace pedal edema and no calf tenderness present. Laboratory Tests 07/11 07/10 07/10 07/10 0620 2156 2101 190 Chemistry Sodium (137 - 145 mmol/L) 141 Potassium (3.5 - 5.1 mmol/L) 4.3 Chloride (98 - 107 mmol/L) 116 H Carbon Dioxide (22 - 30 mmol/L) 14 L Anion Gap (5 - 16) 10 BUN (9 - 20 mg/dL) 38 H Creatinine (0.7 - 1.2 mg/dL) 2.4 H Estimated GFR (>60 ml/min) 26 L BUN/Creatinine Ratio (7 - 25 %) 15.8 Lactic Acid (0.7 - 2.1 mmol/L) 0.9 Cancelled 2.1 Hematology CBC w Diff Pending WBC Pending RBC Pending Hgb Pending Hct Pending MCV Pending MCH Pending RDW Pending Plt Count Pending MPV Pending PUBS MCHC Pending 07/10 1901 Urines Urine Color (YEL,AMB,STR) YEL Urine Clarity (CLEAR) HAZY H Urine pH (5.0 - 8.0) 6.0 Ur Specific [place] (1.001 - 1.035) 1.015 Urine Protein (NEG,<30 MG/DL) 30 H Urine Ketones (NEG) NEG Urine Nitrite (NEG) NEG Urine Bilirubin (NEG) NEG Urine Urobilinogen (0.1 - 1.0 EU/dl) 0.2 Ur Leukocyte Esterase (NEG) SMALL H Ur Microscopic SEDIMENT EXAMINED Urine RBC (0 - 5 /HPF) 5-10 H Urine WBC (0 - 2 /HPF) 25-50 H Ur Epithelial Cells (NONE,FEW) MOD H Urine Hemoglobin (NEG) SMALL H Urine Glucose (N MG/DL) NEG Microbiology Date/Time Procedure - Status Source Growth 07/11 2211 Urine Culture - CAN URINE ROUT Cancelled: DUPLICATE AT 1910 - SEE [id number] 07/11 2211 Blood Culture - COLB BLOOD 07/11 2211 Blood Culture - COLB BLOOD 07/11 1915 Blood Culture - RECD BLOOD 07/10 1909 Influenza Virus A & B Rapid Smear - COMP NASOPHARYN 07/11 1907 Blood Culture - RECD BLOOD 07/10 1901 Urine Culture - RECD URINE ROUT Assessment #1 sepsis most likely urological origin repeat cultures blood cultures sputum cultures urine cultures *Patient IV ceftriaxone Up in a CT scan of the abdomen and pelvis noncontrast. Urology consult Continue the IV fluids to treat acute kidney injury History of CKG which is fairly stable. Follow recommendations of urology. DVT to prophylaxis
[2016-07-11 09:44] LABS: GRANULOCYTE % 86.6 % (42.2-75.2)
[2016-07-11 14:55] VITALS: BP 140/70
--- NOTE | 2016-07-11 18:13 | CT SCAN REPORT ---
EXAMINATION: CT ABDOMEN AND PELVIS WITHOUT CONTRAST CLINICAL INFORMATION: Urinary tract infection. Concern for obstruction. COMPARISON: 10/11/2015. TECHNIQUE: Contiguous axial thin section helical images of the abdomen and pelvis were performed without oral or IV contrast. The data set was reformatted in the coronal and sagittal planes and reviewed on an independent workstation. DLP: 293 mGy-cm. FINDINGS: The visualized lung bases are clear. The visualized portions of the heart are unremarkable. The liver is of normal size and attenuation without focal lesions nor intrahepatic biliary ductal dilation. The gallbladder is not visualized. The spleen, pancreas, adrenal glands are unremarkable. Both kidneys are of normal size and attenuation without hydronephrosis or nephrolithiasis. There is no abdominal free fluid. There is neither mesenteric nor retroperitoneal lymphadenopathy. There are numerous surgical clips present within the right hemiabdomen. There are no dilated loops of small bowel. There is no pelvic free fluid. The urinary bladder is unremarkable. There is neither pelvic nor inguinal lymphadenopathy. Bone windows: Neither sclerotic nor lytic bone lesions are identified. Threaded screws traversing the left femoral head and neck are intact without failure or migration. IMPRESSION: Evidence of prior surgery within the right hemiabdomen. No dilated loops of small bowel.
[2016-07-11 22:32] VITALS: BP 138/72
[2016-07-12 06:22] VITALS: BP 160/82
--- NOTE | 2016-07-12 07:41 | PN- Urology ---
Subjective Subjective: Feels well Objective Vital Signs and I&Os Vital Signs Date Time Temp Pulse Resp B/P Pulse O2 O2 Flow FiO2 Ox Delivery Rate 07/12 0622 98.0 54 18 160/82 96 Room Air 07/11 2232 98.2 52 20 138/72 98 Room Air 07/11 1455 97.8 60 18 140/70 98 Room Air 07/11 0932 55 140/66 Intake & Output 07/12 0800 07/12 0000 07/11 1600 07/11 0800 07/11 0000 07/10 1600 Intake Total 1245 1295 840 278 Output Total 300 550 Balance 945 1295 290 278 Intake, IV 525 575 600 38 Intake, Oral 720 720 240 240 Number 0 Bowel Movements Output, Urine 300 550 Patient 147 lb Weight Abd: soft and non tender CT scan: unremarkable urinary tract Assessment/Plan Assessment/Plan Imp: Recurrent/persistent UTI Plan: f/u urine C&S and treat accordingly Discharge on abx and f/u with his usual urologist Dr De Oliveira
[2016-07-12 08:06] LABS: ABSOLUTE BASOPHIL COUNT 0 /CUMM (0.0-0.2); ABSOLUTE EOSINOPHIL COUNT 0.1 /CUMM (0.0-0.7); ABSOLUTE GRANULOCYTE CT 8.4 /CUMM (1.4-6.5); ABSOLUTE LYMPH COUNT 1.6 /CUMM (1.2-3.4); ABSOLUTE MONOCYTE COUNT 0.7 /CUMM (0.10-0.60); BASOPHIL % 0.4 % (0.0-2.0); EOSINOPHIL % 1.3 % (0-5); GRANULOCYTE % 76.9 % (42.2-75.2); HEMATOCRIT 26.2 % (42-52); MEAN CORPUSCULAR HGB 31.7 PG (27.0-31.0); MEAN CORPUSCULAR VOLUME 96.1 FL (80.0-94.0); MEAN PLATELET VOLUME 8.7 FL (7.4-10.4); PLATELET COUNT 163 /CUMM (130-400); RBC DISTRIBUTION WIDTH 15.3 % (11.5-14.5); RED BLOOD CELL CT 2.73 /CUMM (4.70-6.10); WHITE BLOOD CELL COUNT 10.9 /CUMM (4.8-10.8)
--- NOTE | 2016-07-12 08:45 | PN- Att Addend ---
Attending Addendum Attending Brief Note Attending note. Overall patient is feeling a lot better after receiving IV fluids and IV antibiotics. The CT scan of the abdomen and pelvis no evidence of any acute pathology. Chest evidence of prior surgery in the right hemiabdomen. Current Medications Sig/Lico Start time Last Medication Dose Route Stop Time Status Admin Acetaminophen 325 MG Q6 PRN 07/10 2130 AC PO Amlodipine Besylate 5 MG QAM 07/11 1000 AC 07/11 PO 0932 Calcium 600 MG QAM 07/11 1000 AC 07/11 PO 0931 Ceftriaxone Sodium 1,000 MG DAILY@2100 07/11 2100 AC 07/11 IV 2149 Ceftriaxone Sodium 0 .STK-MED ONE 07/11 2015 CAN .ROUTE 07/12 2015 Heparin Sodium 5,000 UNIT Q8 07/10 2200 AC (Porcine) SC Magnesium Oxide 400 MG QPM 07/11 2200 AC 07/11 PO 2149 Magnesium Oxide 400 MG QAM 07/11 1000 AC 07/11 PO 0930 Oxycodone HCl 5 MG Q6 PRN 07/10 2130 AC PO Oxycodone/ 2 TAB Q6 PRN 07/10 2130 AC Acetaminophen PO Sodium Chloride 1,000 ML Q13H 07/10 2215 DC 07/11 IV 07/12 0014 0935 Vital Signs Date Time Temp Pulse Resp B/P Pulse O2 O2 Flow FiO2 Ox Delivery Rate 07/12 0622 98.0 54 18 160/82 96 Room Air 07/11 2232 98.2 52 20 138/72 98 Room Air 07/11 1455 97.8 60 18 140/70 98 Room Air 07/11 0932 55 140/66 Intake & Output 07/12 1600 07/12 0800 07/12 0000 Intake Total 1245 Output Total 300 Balance 945 Intake, IV 525 Intake, Oral 720 Output, Urine 300 On examination patient is awake alert oriented 3. Conjunctivae is pale sclera is anicteric Neck is supple JVD is not raised no carotid bruit present S1-S2 is normal Lungs are clear Abdomen is soft nontender bowel sounds are present Laboratory Tests 07/12 0628 Chemistry Sodium Pending Potassium Pending Chloride Pending Carbon Dioxide Pending Anion Gap Pending BUN Pending Creatinine Pending BUN/Creatinine Ratio Pending Hematology CBC w Diff NO MAN DIFF REQ WBC (4.8 - 10.8 /CUMM) 10.9 H RBC (4.70 - 6.10 /CUMM) 2.73 L Hgb (14.0 - 18.0 G/DL) 8.6 L Hct (42 - 52 %) 26.2 L MCV (80.0 - 94.0 FL) 96.1 H MCH (27.0 - 31.0 PG) 31.7 H RDW (11.5 - 14.5 %) 15.3 H Plt Count (130 - 400 /CUMM) 163 MPV (7.4 - 10.4 FL) 8.7 Gran % (42.2 - 75.2 %) 76.9 H Lymphocytes % (20.5 - 51.1 %) 14.8 L Monocytes % (1.7 - 9.3 %) 6.6 Eosinophils % (0 - 5 %) 1.3 Basophils % (0.0 - 2.0 %) 0.4 Absolute Granulocytes (1.4 - 6.5 /CUMM) 8.4 H Absolute Lymphocytes (1.2 - 3.4 /CUMM) 1.6 Absolute Monocytes (0.10 - 0.60 /CUMM) 0.7 H Absolute Eosinophils (0.0 - 0.7 /CUMM) 0.1 Absolute Basophils (0.0 - 0.2 /CUMM) 0 PUBS MCHC (33.0 - 37.0 G/DL) 33.0 Assessment Sepsis most likely of urological origin Cultures are still pending. Continue with IV antibiotics Anemia this a drop in his crit Check stool for occult blood Start ambulating the patient
--- NOTE | 2016-07-12 10:07 | PN- Housestaff ---
Subjective Follow-up For: Recurrent UTI Subjective: Afebrile, white blood cell improved. Patient still complaining of chills and feeling cold, he also reported feeling an urge to get multiple naps during the day. He denies any other complaints Review of Systems Constitutional: Reports: see HPI. Objective Last 24 Hrs of Vital Signs/I&O Vital Signs Date Time Temp Pulse Resp B/P Pulse O2 O2 Flow FiO2 Ox Delivery Rate 07/12 1459 98.4 60 18 140/60 99 Room Air 07/12 0950 48 160/82 07/12 0622 98.0 54 18 160/82 96 Room Air 07/11 2232 98.2 52 20 138/72 98 Room Air Intake & Output 07/12 1600 07/12 0800 07/12 0000 Intake Total 250 1245 Output Total 300 Balance 250 945 Intake, IV 10 525 Intake, Oral 240 720 Output, Urine 300 Physical Exam General Appearance: Alert, Oriented X3, Cooperative, patient was sitting on chair, feeling chills. Skin: No Rashes HEENT: Atraumatic, PERRLA, EOMI, Mucous Membr. moist/pink Cardiovascular: Regular Rate, Normal S1, Normal S2, No Murmurs Lungs: Clear to Auscultation Abdomen: Soft, No Tenderness Neurological: Normal Speech Extremities: No Edema Current Medications: Current Medications Sig/Lico Start time Last Medication Dose Route Stop Time Status Admin Acetaminophen 325 MG Q6 PRN 07/10 2129 AC PO Amlodipine Besylate 5 MG QAM 07/11 1000 AC 07/12 PO 0950 Calcium 600 MG QAM 07/11 1000 AC 07/12 PO 0949 Ceftriaxone Sodium 1,000 MG DAILY@2100 07/11 2100 AC 07/11 IV 2149 Ceftriaxone Sodium 0 .STK-MED ONE 07/11 2015 CAN .ROUTE 07/12 2015 Heparin Sodium 5,000 UNIT Q8 07/10 220 AC (Porcine) SC Magnesium Oxide 400 MG QPM 07/11 2200 AC 07/11 PO 2149 Magnesium Oxide 400 MG QAM 07/11 1000 AC 07/12 PO 0949 Oxycodone HCl 5 MG Q6 PRN 07/10 2129 AC PO Oxycodone/ 2 TAB Q6 PRN 07/10 2129 AC Acetaminophen PO Sodium Chloride 1,000 ML Q13H 07/10 2215 DC 07/11 IV 07/12 0014 0935 Last 24 Hrs of Lab/Jeff Results Last 24 Hrs of Labs/Mics: Laboratory Tests 07/12/16 0628: Anion Gap 10, Estimated GFR 26 L, BUN/Creatinine Ratio 15.4, CBC w Diff NO MAN DIFF REQ, RBC 2.73 L, MCV 96.1 H, MCH 31.7 H, RDW 15.3 H, MPV 8.7, Gran % 76.9 H, Lymphocytes % 14.8 L, Monocytes % 6.6, Eosinophils % 1.3, Basophils % 0.4, Absolute Granulocytes 8.4 H, Absolute Lymphocytes 1.6, Absolute Monocytes 0.7 H, Absolute Eosinophils 0.1, Absolute Basophils 0, PUBS MCHC 33.0 Assessment/Plan Assessment: Patient is a 85-year-old gentleman with a past medical history of 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 Hathaway's office for evaluation of generalized weakness, fatigue, chills and abnormal blood work. 1.Recurrent UTI: UA. Recently treated for UTI 2 weeks prior to admission. Completed a ten-day course of ciprofloxacin. Has grown Escherichia coli in the past. Was found to have a white count of 27,000 with bandemia on labs on admission. Hypothermic in PCPs office. CT abdomen and pelvis; Both kidneys are of normal size and attenuation without hydronephrosis ornephrolithiasis. * Continue IV ceftriaxone pending cultures * Follow-up Urine and blood cultures * Continue Tylenol for fever * CBC in the morning 2. Hypertension * Continue amlodipine 3.ZHANNA on CKD: Baseline creatinine around 1.9 in April 2016. Could be secondary to a hydration/obstruction * Continue gentle hydration with IV normal saline * Avoid nephrotoxins * Repeat BEP am 4. Short-bowel syndrome * Continue magnesium and calcium supplements 5. Chronically feeling cold * TSH in a.m. Heart healthy diet [id number] pain control DNR/DNI. DVT prophylaxis subcutaneous heparin Problem List: 1. ZHANNA (acute kidney injury) 2. Leukocytosis 3. UTI (urinary tract infection) Pain Ratin Pain Location: see assessment and plan Pain Goal: Remain pain free Pain Plan: See assessment plan Tomorrow's Labs & Rationales: CBC to follow infection BEP to full renal function TSH to rule out hypothyroidism as an explanation of feeling cold and sleepy all day long
[2016-07-12 14:59] VITALS: BP 140/60
[2016-07-12 22:25] VITALS: BP 166/86
[2016-07-13 06:47] VITALS: BP 138/72
--- NOTE | 2016-07-13 07:28 | PN- Housestaff ---
Subjective Follow-up For: The current UTI Subjective: Afebrile, his white blood cell within normal limits today, no acute overnight events reported, laying on bed looks relaxed and comfortable. He denies any current complaint. Review of Systems Constitutional: Reports: no symptoms. Objective Last 24 Hrs of Vital Signs/I&O Vital Signs Date Time Temp Pulse Resp B/P Pulse O2 O2 Flow FiO2 Ox Delivery Rate 07/13 0916 90 136/70 07/13 0647 98.1 93 16 138/72 95 07/12 2225 98.4 61 20 166/86 97 07/12 1459 98.4 60 18 140/60 99 Room Air Intake & Output 07/13 1600 07/13 0800 07/13 0000 Intake Total 125 500 Output Total 1100 Balance -975 500 Intake, Oral 125 500 Output, Urine 1100 Physical Exam General Appearance: Alert, Oriented X3, Cooperative, No Acute Distress Skin: No Rashes HEENT: Atraumatic, PERRLA, EOMI, Mucous Membr. moist/pink Cardiovascular: Regular Rate, Normal S1, Normal S2, No Murmurs Lungs: Clear to Auscultation Abdomen: Normal Bowel Sounds, Soft, No Tenderness Neurological: Normal Speech Extremities: No Edema Current Medications: Current Medications Sig/Lico Start time Last Medication Dose Route Stop Time Status Admin Acetaminophen 325 MG Q6 PRN 07/10 2129 AC PO Amlodipine Besylate 5 MG QAM 07/11 1000 AC 07/13 PO 0916 Calcium 600 MG QAM 07/11 1000 AC 07/13 PO 0915 Ceftriaxone Sodium 1,000 MG DAILY@2100 07/11 2100 DC 07/12 IV 2205 Cephalexin 250 MG Q8H 07/13 1000 AC 07/13 PO 1052 Heparin Sodium 5,000 UNIT Q8 07/10 2200 AC (Porcine) SC Magnesium Oxide 400 MG QPM 07/11 2200 AC 07/12 PO 2208 Magnesium Oxide 400 MG QAM 07/11 1000 AC 07/13 PO 0915 Oxycodone HCl 5 MG Q6 PRN 07/10 2129 AC PO Oxycodone/ 2 TAB Q6 PRN 07/10 2129 AC Acetaminophen PO Last 24 Hrs of Lab/Jeff Results Last 24 Hrs of Labs/Mics: Laboratory Tests 07/13/16 0705: Anion Gap 10, Estimated GFR 26 L, BUN/Creatinine Ratio 14.6, TSH 4.530 H, CBC w Diff NO MAN DIFF REQ, RBC 2.79 L, MCV 96.6 H, MCH 31.8 H, RDW 15.5 H, MPV 9.4, Gran % 66.8, Lymphocytes % 22.2, Monocytes % 8.5, Eosinophils % 2.0, Basophils % 0.5, Absolute Granulocytes 4.3, Absolute Lymphocytes 1.4, Absolute Monocytes 0.5, Absolute Eosinophils 0.1, Absolute Basophils 0, PUBS MCHC 32.9 L Assessment/Plan Assessment: Patient is a 85-year-old gentleman with a past medical history of 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 Hathaway's office for evaluation of generalized weakness, fatigue, chills and abnormal blood work. 1.Recurrent UTI: UA. Recently treated for UTI 2 weeks prior to admission. Completed a ten-day course of ciprofloxacin. Has grown Escherichia coli in the past. Was found to have a white count of 27,000 with bandemia on labs on admission. Hypothermic in PCPs office. CT abdomen and pelvis; Both kidneys are of normal size and attenuation without hydronephrosis ornephrolithiasis. * We will switch IV ceftriaxone to Augmentin to finish a total of 7 days * Follow-up Urine and blood cultures * Continue Tylenol for fever 2. Hypertension * Continue amlodipine 3.ZHANNA on CKD: Baseline creatinine around 1.9 in April 2016. Today it's 2.4 Could be secondary to a hydration/obstruction or could be his new baseline * Continue gentle hydration with IV normal saline * Avoid nephrotoxins * Repeat BEP am 4. Short-bowel syndrome * Continue magnesium and calcium supplements Heart healthy diet Nnpa-vy-jvgeeswa pain control DNR/DNI. DVT prophylaxis subcutaneous heparin Problem List: 1. ZHANNA (acute kidney injury) 2. UTI (urinary tract infection) Pain Ratin Pain Location: See assessment and plan Pain Goal: Remain pain free Pain Plan: She assessment and Tomorrow's Labs & Rationales: CBC and BEP
--- NOTE | 2016-07-13 08:21 | PN- Urology ---
Subjective Subjective: feels well Objective Vital Signs and I&Os Vital Signs Date Time Temp Pulse Resp B/P Pulse O2 O2 Flow FiO2 Ox Delivery Rate 07/13 0647 98.1 93 16 138/72 95 07/12 2225 98.4 61 20 166/86 97 07/12 1459 98.4 60 18 140/60 99 Room Air 07/12 0950 48 160/82 Intake & Output 07/13 1600 07/13 0800 07/13 0000 07/12 1600 07/12 0800 07/12 0000 Intake Total 125 500 876 870 7012 Output Total 1100 1800 300 Balance -975 500 250 -1600 945 Intake, IV 10 200 525 Intake, Oral 125 500 240 720 Output, Urine 1100 1800 300 Abd: soft and non tender Laboratory Tests 07/13 07 Chemistry Sodium Pending Potassium Pending Chloride Pending Carbon Dioxide Pending Anion Gap Pending BUN Pending Creatinine Pending BUN/Creatinine Ratio Pending TSH Pending Hematology CBC w Diff Pending WBC Pending RBC Pending Hgb Pending Hct Pending MCV Pending MCH Pending RDW Pending Plt Count Pending MPV Pending PUBS MCHC Pending urine C&S negative Assessment/Plan Assessment/Plan Imp: Although urine culture is negative suspect patient had UTI as there was significant pyuria on exam Plan: Would consider an oral antibiotic other than cipro, which is what he had before, for 7 days and f/u with Dr De Oliveira
[2016-07-13 08:41] LABS: ABSOLUTE BASOPHIL COUNT 0 /CUMM (0.0-0.2); ABSOLUTE EOSINOPHIL COUNT 0.1 /CUMM (0.0-0.7); ABSOLUTE GRANULOCYTE CT 4.3 /CUMM (1.4-6.5); ABSOLUTE LYMPH COUNT 1.4 /CUMM (1.2-3.4); ABSOLUTE MONOCYTE COUNT 0.5 /CUMM (0.10-0.60); BASOPHIL % 0.5 % (0.0-2.0); GRANULOCYTE % 66.8 % (42.2-75.2); HEMATOCRIT 26.9 % (42-52); MEAN CORPUSCULAR HGB 31.8 PG (27.0-31.0); MEAN CORPUSCULAR HGB CONC 32.9 G/DL (33.0-37.0); MEAN CORPUSCULAR VOLUME 96.6 FL (80.0-94.0); MEAN PLATELET VOLUME 9.4 FL (7.4-10.4); PLATELET COUNT 166 /CUMM (130-400); RBC DISTRIBUTION WIDTH 15.5 % (11.5-14.5); RED BLOOD CELL CT 2.79 /CUMM (4.70-6.10); WHITE BLOOD CELL COUNT 6.4 /CUMM (4.8-10.8)
--- NOTE | 2016-07-13 09:28 | PN- Att Addend ---
Attending Addendum Attending Brief Note Patient reports no symptoms General Appearance: Alert, No Acute Distress Skin: Grossly normal HEENT: PEERLA Neck: Supple, No JVD Cardiovascular: Regular Rate, Normal S1, Normal S2, No Murmurs Lungs: Clear to Auscultation, Normal Air Movement Abdomen: Normal Bowel Sounds, Soft, No Tenderness Neurological: Normal Speech, Strength at 5/5 X4 Ext, Cranial Nerves 3-12 NL, Reflexes 2+ Extremities: No Clubbing, No Cyanosis, No Edema Vascular: Normal Pulses Assessment Possible UTI partially treated prior to this admission. Urine cultures negative so far and patient appears asymptomatic. We will switch to Augmentin for total 7 days and discharge patient home. Plan Augmentin for total 7 days Continue other home meds Follow-up as outpatient Discharge patient home Current Medications Sig/Lico Start time Last Medication Dose Route Stop Time Status Admin Acetaminophen 325 MG Q6 PRN 07/10 2130 AC PO Amlodipine Besylate 5 MG QAM 07/11 1000 AC 07/13 PO 0916 Calcium 600 MG QAM 07/11 1000 AC 07/13 PO 0915 Ceftriaxone Sodium 1,000 MG DAILY@2100 07/11 2100 DC 07/12 IV 2205 Cephalexin 250 MG Q6 07/13 0843 UNVr PO Heparin Sodium 5,000 UNIT Q8 07/10 2200 AC (Porcine) SC Magnesium Oxide 400 MG QPM 07/11 2200 AC 07/12 PO 2208 Magnesium Oxide 400 MG QAM 07/11 1000 AC 07/13 PO 0915 Oxycodone HCl 5 MG Q6 PRN 07/10 2130 AC PO Oxycodone/ 2 TAB Q6 PRN 07/10 2130 AC Acetaminophen PO Laboratory Tests 07/13 0705 Chemistry Sodium (137 - 145 mmol/L) 142 Potassium (3.5 - 5.1 mmol/L) 3.7 Chloride (98 - 107 mmol/L) 114 H Carbon Dioxide (22 - 30 mmol/L) 17 L Anion Gap (5 - 16) 10 BUN (9 - 20 mg/dL) 35 H Creatinine (0.7 - 1.2 mg/dL) 2.4 H Estimated GFR (>60 ml/min) 26 L BUN/Creatinine Ratio (7 - 25 %) 14.6 TSH (0.270 - 4.200 uIU/mL) Pending Hematology CBC w Diff NO MAN DIFF REQ WBC (4.8 - 10.8 /CUMM) 6.4 RBC (4.70 - 6.10 /CUMM) 2.79 L Hgb (14.0 - 18.0 G/DL) 8.9 L Hct (42 - 52 %) 26.9 L MCV (80.0 - 94.0 FL) 96.6 H MCH (27.0 - 31.0 PG) 31.8 H RDW (11.5 - 14.5 %) 15.5 H Plt Count (130 - 400 /CUMM) 166 MPV (7.4 - 10.4 FL) 9.4 Gran % (42.2 - 75.2 %) 66.8 Lymphocytes % (20.5 - 51.1 %) 22.2 Monocytes % (1.7 - 9.3 %) 8.5 Eosinophils % (0 - 5 %) 2.0 Basophils % (0.0 - 2.0 %) 0.5 Absolute Granulocytes (1.4 - 6.5 /CUMM) 4.3 Absolute Lymphocytes (1.2 - 3.4 /CUMM) 1.4 Absolute Monocytes (0.10 - 0.60 /CUMM) 0.5 Absolute Eosinophils (0.0 - 0.7 /CUMM) 0.1 Absolute Basophils (0.0 - 0.2 /CUMM) 0 PUBS MCHC (33.0 - 37.0 G/DL) 32.9 L Vital Signs Date Time Temp Pulse Resp B/P Pulse O2 O2 Flow FiO2 Ox Delivery Rate 07/13 0916 90 136/70 07/13 0647 98.1 93 16 138/72 95 07/12 2225 98.4 61 20 166/86 97 07/12 1459 98.4 60 18 140/60 99 Room Air 07/12 0950 48 160/82
--- NOTE | 2016-07-13 13:25 | Patient Discharge Instructions ---
Discharge Instructions General Discharge Information You were seen/treated for: Urinary tract infection Special Instructions: Please follow-up with your primary care doctor within 1 week Least follow-up with Dr. De Oliveira the urologist within 1 week. If any fever, chills, nausea or vomiting or lower back pain started please come back to the ED Diet Continue normal diet: Yes Recommended Diet: Regular Activity Full Activity/No Limits: No Activity Self Limited: Yes Acute Coronary Syndrome Inclusion Criteria At DC or during hospital stay patient has or had the following: ACS DIAGNOSIS No Discharge Core Measures Meds if any: Prescribed or Continued at Discharge Meds if any: NOT Prescribed or Continued at Discharge Congestive Heart Failure Inclusion Criteria At DC or during hospital stay patient has or had the following: CHF DIAGNOSIS No Discharge Core Measures Meds if any: Prescribed or Continued at Discharge Meds if any: NOT Prescribed or Continued at Discharge Cerebrovascular accident Inclusion Criteria At DC or during hospital stay patient has or had the following: CVA/TIA Diagnosis No Discharge Core Measures Meds if any: Prescribed or Continued at Discharge Meds if any: NOT Prescribed or Continued at Discharge Venous thromboembolism Inclusion Criteria VTE Diagnosis No VTE Type NONE VTE Confirmed by (Test) NONE Discharge Core Measures - Per Current guidelines, there needs to be overlap - treatment for the first 5 days of Warfarin therapy. - If discharged on Warfarin prior to 5 days of - overlap therapy, the patient will need to be - assessed for post discharge needs including - *Post discharge parental anticoagulation - *Warfarin and/or parental anticoagulation education - *Follow up date to check INR post discharge At least 5 days overlap therapy as Inpatient No Meds if any: Prescribed or Continued at Discharge Note: Overlap Therapy is Warfarin and Anticoagulant Meds if any: NOT Prescribed or Continued at Discharge
[2016-07-13] MEDS ORDERED: AUGMENTIN 500-1 EACH PO (15:03)
[2016-07-13 15:34] VITALS: BP 130/80
--- NOTE | 2016-07-22 14:31 | Discharge Summary ---
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 Delaney for evaluation of generalized weakness, fatigue, chills and abnormal blood work. 1.Recurrent UTI: Recently treated for UTI 2 weeks prior to admission. Completed a ten-day course of ciprofloxacin. Had grown Escherichia coli in the past. Was found to have a white count of 27,000 with bandemia on labs on admission. CT abdomen and pelvis without hydronephrosis ornephrolithiasis. patient was followed by urology Dr. Marmolejo recommended continuing antibiotics although urine culture came back negative. Patient was initially treated with IV ceftriaxone and was later switched to Augmentin for a total 7 days as outpatient. He will follow with Dr. De Oliveira as outpatient. 2. ZHANNA on CKD: Baseline creatinine around 1.9 in April 2016. upon admission creatinine was 2.4. Could be secondary to a hydration/obstruction or could be his new baseline. CAT scan abdomen and pelvis ruled out hydronephrosis. Upon discharge his creatinine remained high at 2.4. Allergies: Coded Allergies: cimetidine (UNKNOWN 05/08/16) Significant Procedures: CAT scan abdomen and pelvis FINDINGS: The visualized lung bases are clear. The visualized portions of the heart are unremarkable. The liver is of normal size and attenuation without focal lesions nor intrahepatic biliary ductal dilation. The gallbladder is not visualized. The spleen, pancreas, adrenal glands are unremarkable. Both kidneys are of normal size and attenuation without hydronephrosis or nephrolithiasis. There is no abdominal free fluid. There is neither mesenteric nor retroperitoneal lymphadenopathy. There are numerous surgical clips present within the right hemiabdomen. There are no dilated loops of small bowel. There is no pelvic free fluid. The urinary bladder is unremarkable. There is neither pelvic nor inguinal lymphadenopathy. Bone windows: Neither sclerotic nor lytic bone lesions are identified. Threaded screws traversing the left femoral head and neck are intact without failure or migration. IMPRESSION: Evidence of prior surgery within the right hemiabdomen. No dilated loops of small bowel. Disposition Summary Disposition Principal Diagnosis: UTI Additional Diagnosis: chronic kidney disease Discharge Disposition: home or self care Discharge Instructions General Discharge Information Code Status: Full Code Patient's Diet: heart healthy diet Renal diet Patient's Activity: as tolerated Follow-Up Instructions/Appts: follow-up with Dr. De Oliveira as outpatient within a week of discharge Medications at Discharge Discharge Medications: Stop taking the following medications: Ciprofloxacin HCl (Cipro) (Unknown Strength) TABLET ORAL As Directed Continue taking these medications: Amlodipine Besylate (Amlodipine Besylate) 5 MG TABLET 1 Tablet ORAL Every Morning Qty = 30 Comments: Last Taken: 07/13/16 Time: 9:00 AM Magnesium Oxide (Magnesium) 500 MG CAPSULE 1 Capsule ORAL Every Morning Comments: Last Taken: 07/13/16 Time: 9:00 AM Magnesium Oxide (Magnesium) 500 MG CAPSULE 0.5 Capsule ORAL Every night Comments: Last Taken: 07/12/16 Time: 10:00 PM Calcium Carbonate (Calcium) 600 MG (1,500 MG) TABLET 1 Capsule ORAL Every Morning Comments: Last Taken: 07/13/16 Time: 9:00 AM Cholecalciferol (Vitamin D3) (Vitamin D) 1,000 UNIT CAPSULE 1 Capsule ORAL Every Morning Comments: NOT GIVEN IN HOSPITAL Diphenoxylate HCl/Atropine (Lomotil 2.5-0.025 MG Tablet) 2.5 MG-0.025 MG TABLET 1 Tablet ORAL Every other day as needed for DIARRHEA Qty = 30 Comments: NOT GIVEN IN HOSPTIAL Start taking the following new medications: Augmentin (Augmentin 500-125 Tablet) 500 MG-125 MG TABLET 500 Milligram ORAL EVERY 12 HOURS Qty = 7 No Refills Instructions: TAKE FIRST DOSE TONIGHT Comments: Last Taken: 07/13/16 Time: 3:15 PM Copies To: JOHNSON KHAN,HELLEN Pizarro MD Review Statement Documenting Attending: JORGE LUIS MANCUSO MD
== END 2016-07-13 16:21 | DRG 690 ==
LOC: ENRESERVTM → ENRESERVDT → ERH 17:49 → ENPENDDIS 20:45 → ERHI 20:45 → 2NB 20:45
PROVIDERS: Student in an Organized Health Care Education/Training Program; ADMIT Internal Medicine
DX: N39.0 Urinary tract infection, site not specified (principal); N17.9 Acute kidney failure, unspecified; K91.2 Postsurgical malabsorption, not elsewhere classified; N18.3 Chronic kidney disease, stage 3 (moderate); N28.1 Cyst of kidney, acquired; I12.9 Hypertensive chronic kidney disease with stage 1 through stage 4 chronic kidney disease, or unspecified chronic kidney disease; E87.6 Hypokalemia; N40.0 Benign prostatic hyperplasia without lower urinary tract symptoms; R68.0 Hypothermia, not associated with low environmental temperature; Z85.038 Personal history of other malignant neoplasm of large intestine
CPT/HCPCS: 2NBP; 36415; 74176; 81001; 82436; 87040; 87086; 87804; 87804-59; 93005; 93010; 96361; 96374; J0696; J1644; J3490

== ENCOUNTER → 2017-07-09 | Day surgery (SDC) | payer OTHER ==
[~2017-07-09] VITALS: Ht 167.6 cm; Wt 74.8 kg
[~2017-07-09] MED LIST changes: +ACIDOPHILUS1 EACH PO; +AUGMENTIN 500-1 EACH PO; +BAKING SODA PO; +CALCIUM + VITA1 EAC1 PO; -CALCIUM600 M2 PO; +CARVEDILOL12.5 M1 PO; +CIPRO500 M1 PO; +COREG12.5 M1 PO; +CREON DR 36,001 EAC1 PO; +LASIX40 M1 PO; +LISINOPRIL20 M1 PO; +VITAMIN D31000 UNI2 PO
--- NOTE | 2017-07-09 10:52 | Operative Report ---
Operative/Inv Procedure Report Surgery Date: 07/09/17 Name of Procedure: 1. Transanal excision of rectal polyp 2 submucosal level 2. Suture ligation and destruction of posterior midline bleeding internal hemorrhoids Pre-Operative Diagnosis: Rectal polyp Post-Operative Diagnosis: 1. Rectal polyp 2. Prolapsing bleeding internal hemorrhoid Estimated Blood Loss: less than 50ml Surgeon/Windows Consultant: Marv Herrera Jr., DO Anesthesia: local monitored anesthesi, block Monitors: Per routine Drains: None Specimens: Rectal polyp Complications: None Condition: Good Operative Indication: This is an 86-year-old gentleman noted to have a rectal polyp on anoscopy Lesion adjacent to hemorrhoids so not removed during colonoscopy Operative/Procedure Note Note: On the morning before his procedure the patient did a Fleet's enema at home He presented to [facility] was taken into the operating room. He was placed in the supine position on the operating room table and then received IV sedation. Once he was comfortable he was converted to lithotomy position in [facility] and the perineum was prepped and draped in usual fashion. An anal block was performed using 0.5% Marcaine with epinephrine total of 30 mL was injected Next a Fansler operating proctoscope was placed in the anal canal and the rectum was inspected quadrant by quadrant. The lesion was in the right posterior low rectum just above the hemorrhoid pedicle. The lesion was grasped with forceps and then excised at its base with electrocautery. Lesion was sent for routine path. There was vigorous bleeding from the polypectomy site which was controlled by oversewing with a 2-0 Vicryl suture. Excise I was inspecting for hemostasis I noticed a separate point of bleeding on the posterior midline large internal hemorrhoids. The bleeding was probably triggered by the placement of the retractor. The bleeding was vigorous. So this hemorrhoid was oversewn with a 3-0 Vicryl suture in an over and over fashion. This completely controlled the bleeding. At this point the procedure was concluded. The retractor was removed and the perineum was cleansed and dried. A dry bulky dressing was plied over the anus. The patient was converted to supine. The patient was taken to recovery area in good condition and tolerated the procedure well. The end this procedure all needles and Schmidts sponges were accounted for
== END ==
LOC: STS 02:28
DX: D12.8 Benign neoplasm of rectum (principal); K64.8 Other hemorrhoids; Z85.038 Personal history of other malignant neoplasm of large intestine; K62.5 Hemorrhage of anus and rectum; K43.9 Ventral hernia without obstruction or gangrene; I12.9 Hypertensive chronic kidney disease with stage 1 through stage 4 chronic kidney disease, or unspecified chronic kidney disease; N18.3 Chronic kidney disease, stage 3 (moderate)
CPT/HCPCS: 88305

== ENCOUNTER 2017-07-13 12:54 | Inpatient (IN) | payer OTHER ==
[~2017-07-13] VITALS: Ht 165.1 cm; Wt 80.7 kg
[~2017-07-13 12:54] MED LIST changes: -ACIDOPHILUS1 EACH PO; -CARVEDILOL12.5 M1 PO; -LASIX40 M1 PO; -LISINOPRIL20 M1 PO; -VITAMIN D31000 UNI2 PO
[2017-07-13] MEDS ORDERED: VITAMIN D31000 UNI2 PO (15:06)
[2017-07-13] MEDS ORDERED: ACIDOPHILUS1 EACH PO (15:06)
--- NOTE | 2017-07-13 15:06 | ED GENERAL ADULT ---
History of Present Illness General Chief Complaint: Lower Extremity Problems Stated Complaint: BILATERAL LEG SWELLING Source: patient, family, old records Exam Limitations: no limitations Vital Signs & Intake/Output Vital Signs & Intake/Output Vital Signs Date Time Temp Pulse Resp B/P B/P Pulse O2 O2 Flow FiO2 Mean Ox Delivery Rate 07/13 1921 97.6 60 18 159/70 98 Room Air 07/13 1547 Room Air 07/13 1257 98.8 71 18 156/11 94 Room Air 07/13 1257 77 18 156/111 94 Room Air Allergies Coded Allergies: benazepril (From LOTREL) (UNKNOWN PER PT 07/08/17) cimetidine (UNKNOWN PER PT 07/08/17) fluconazole (From DIFLUCAN) (electrolytes off 07/08/17) Reconcile Medications Amlodipine Besylate 5 MG TABLET 1 TAB PO BID BP (Reported) [BAKING SODA] 1 TSP PO DAILY GI (Reported) Calcium Carbonate/Vitamin D3 (Calcium + Vitamin D Tablet) (Unknown Strength) TABLET (Unknown Dose) PO DAILY SUPPLEMENT (Reported) Carvedilol 12.5 MG TABLET 1 TAB PO QPM HEART (Reported) Cholecalciferol (Vitamin D3) 1,000 UNIT TABLET 1 TAB PO DAILY VITAMIN SUPPORT (Reported) Lactobacillus Acidophilus (Acidophilus) 1 EACH CAPSULE 1 CAP PO DAILY GI ( Reported) Lipase/Protease/Amylase (Aide Dr 36,000 Units Capsule) 36K-114K CAPSULE.DR 1 CAP PO BID PANCREATIC ENZYMES (Reported) Magnesium Oxide (Magnesium) 500 MG CAPSULE 1 CAP PO QAM SUPPLEMENT (Reported) Triage Note: 86 Y/O MALE WORSENING OVER THE LAST FEW DAYS. PT STATES THE RIGHT LOWER EXTREMITY IS NOW PAINFUL. DENIES NOTING REDNESS OR BRUSING. DENIES WEEPING OF FLUID. DENIES SOB. PER FAMILY, PT USED TO BE ON B/P MEDS WITH A DIURETIC AND NEVER HAD THIS PROBLEM WHILE ON MED. Triage Nurses Notes Reviewed? yes Onset: Gradual Duration: worse persistent since (1-2 weeks) Timing: recent history Injury Environment: home Severity: moderate Modifying Factors: Improves With: immobilization. Worsens With: movement. HPI: Patient is an 86-year-old male with history of hypertension, presenting to the emergency department with chief complaint of worsening lower extremity edema over the past several days. Patient reports that he has been dealing with the leg swelling for the past one year, was told to follow-up with his primary care physician and a electronic instrument trades worker but has not yet seen them. Symptoms got worse over the past days and also he came in for evaluation. Patient denying any chest pain or palpitations. Family does report that he seemed short of breath of exertion several days. Has not been taking anything to help with symptoms. He does not take it wire filled due to his renal function. Patient does take amlodipine 5 mg, bid. He saw his primary care physician regarding this and they thought that it might be medication side effect. (Jayda Chua) Past History Travel History Traveled to [place] past 21 day No Medical History Any Pertinent Medical History? 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 No (Jayda Chua) Review of Systems Review of Systems Constitutional: Reports: no symptoms. Comments Review of systems: See HPI, All other systems negative. Constitutional, no chills fever or weight loss HEENT: No visual changes no sore throat no congestion Cardiovascular: No chest pain ,palpitation , orthopnea Skin, no jaundice no rashes Respiratory: No cough sputum or hemoptysis GI: No nausea no vomiting : No dysuria No hematuria Muscle skeletal: no back pain, no neck pain, Neurologic: No numbness no confusion no headaches Psych: No stress anxiety or depression,. Heme/endocrine: No bruising no bleeding no polyuria or polydipsia Immunology: No splenectomy or history of AIDS (Jayda Chua) Physical Exam Physical Exam General Appearance: well developed/nourished, no apparent distress, alert, awake , comfortable Comments: Well-developed well-nourished person in no acute distress HEENT: Pupils equally round and reactive to light and accommodation. Nose is atraumatic. External auditory canal and Tympanic membranes clear. Pharynx normal. No swelling or edema. Neck: Normal inspection Back: Nontender Cardiovascular: irRegular rate and rhythms , able to auscultate a valvular click , normal JVP Respiratory: Chest nontender. No respiratory distress.breath sounds diminished to auscultation bilaterally at the bases bilaterally. Abdomen: Soft, nontender nondistended, no appreciable organomegaly. Normal bowel sounds. No ascites. rectal: External hemorrhoid noted, mild bruising noted around the rectum, no obvious bright red blood per rectum, positive guaiac. Extremity: Tender to palpation of the right side and left calves, +3+ pitting edema noted in lower extremities bilaterally., normal and equal pulses. No erythema. Toenails appear to be infected with nail fungus. Neuro: Alert oriented x3, motor sensory normal, cranial nerves II through XII grossly intact. Skin: No appreciable rash on exposed skin, skin is warm and dry. Psych: Mood and affect is normal, memory and judgment is normal. Core Measures ACS in differential dx? Yes CVA/TIA Diagnosis: No Sepsis Present: No Sepsis Focused Exam Completed? No (Govind KRUSE,Jayda) Progress Differential Diagnoses I considered the following diagnoses in my evaluation of the patient: CHF, dependent edema, medication reaction, electrolyte abnormality, ACS, DVT, PE Diagnostic Imaging: Viewed by Me: Radiology Read, Ultrasound. Discussed w/RAD: Radiology Read, Ultrasound. CXR Impression: PATIENT: PEBBLES ALFONSO PRESENT AGE: 86 PATIENT ACCOUNT NO: [id number] : 32 LOCATION: [facility] ORDERING PHYSICIAN: Jayda KRUSE SERVICE DATE: 07/13/17 EXAM TYPE: RAD - XRY- PORTABLE CHEST XRAY EXAMINATION: XR PORTABLE CHEST CLINICAL INFORMATION: 86-year -old male patient with shortness of breath and leg edema. COMPARISON: Chest x- ray on 07/10/2016. TECHNIQUE: Portable AP semierect view of the chest was obtained. FINDINGS: Since 3 days ago, the patient has developed small effusions larger on the right than left. The heart remains enlarged. There is no sign of pulmonary edema superimposed upon patient's chronic lung disease. IMPRESSION: Since 3 days ago, the patient has now developed small pleural effusions. Cardiomegaly. DICTATED BY: Terrence Celis MD DATE/TIME DICTATED:07/13/171542 WAX PATTERN ASSEMBLER:JOHN DATE/TIME TRANSCRIBED:07/13/171542 CONFIDENTIAL, DO NOT COPY WITHOUT APPROPRIATE AUTHORIZATION. <Electronically signed in Other Vendor System> SIGNED BY: Terrence Celis MD 07/13/17 1603 Initial ED EKG: AFIB Prior EKG: changed Repeat EKG: unchanged Comments: 07/13/2017 7:46:35 PM awaiting callback from Dr. Cyr (Govind [facility]) Plan of Care: Orders Procedure Date/time Status Heart Healthy Diet 07/14 B Active Heart Healthy Diet 07/13 D Complete Misc Message 07/13 1941 Active ED Holding Orders 07/13 1941 Active Admit to inpatient 07/13 1941 Active Vital Signs 07/13 1941 Active Code Status 07/13 1941 Active EKG 07/13 185 Active US-EXT BILAT VENOUS DOPPLER 07/13 1624 Active Telemetry/Bill Of Lading Clerk 07/13 1505 Active TROPONIN LEVEL 07/13 1505 Complete D-DIMER 07/13 1505 Complete COMPREHENSIVE METABOLIC PANEL 07/13 1505 Complete CBC WITHOUT DIFFERENTIAL 07/13 1505 Complete B-TYPE NATRIURETIC PEP (BNP) 07/13 1505 Complete EKG 07/13 1505 Active Laboratory Tests 07/13/17 1540: Anion Gap 14, Estimated GFR 30 L, BUN/Creatinine Ratio 14.8, Glucose 91, Calcium 8.8, Total Bilirubin 1.1, AST 11 L, ALT 19 L, Alkaline Phosphatase 101 , Troponin I 0.04, Ixh-S-Orihctrzrhh Pept 69572 H, Total Protein 6.6, Albumin 3.5, Globulin 3.1, Albumin/Globulin Ratio 1.1, D-Dimer High Sensitivty 466 H, CBC w Diff NO MAN DIFF REQ, RBC 3.00 L, MCV 98.4 H, MCH 32.3 H, MCHC 32.9 L, RDW 13.9, MPV 8.9, Gran % 64.0, Lymphocytes % 21.3, Monocytes % 11.7 H, Eosinophils % 2.3, Basophils % 0.7, Absolute Granulocytes 4.2, Absolute Lymphocytes 1.4, Absolute Monocytes 0.8 H, Absolute Eosinophils 0.1, Absolute Basophils 0 07/13/2017 7:52:[address] Cyr, due to patient's recent hemorrhoidectomy and removal of polyp and positive guaiac we are going to hold on heparinizing the patient. Heart rate is currently between 60 and 70 bpm on the monitor. Patient is nontoxic. (Jayda Chua) Comments: 07/13/2017 7:43:41 PM according to [facility], patient's rectal examination is heme positive but he has had a recent hemorrhoid. We will contact cardiology, who recommended anticoagulation, with this exam finding. I have discussed this patient's case with Dr. Mcghee. (Shari KHAN,Zeke Faith) Departure Departure Time of Disposition: 1946 Disposition: STILL A PATIENT Condition: Stable Clinical Impression Primary Impression: New onset a-fib Secondary Impressions: Chronic renal failure Qualifiers: Chronic kidney disease stage: unspecified stage Qualified Code: N18.9 - Chronic kidney disease, unspecified Congestive heart failure Qualifiers: Heart failure type: unspecified Heart failure chronicity: unspecified Qualified Code: I50.9 - Heart failure, unspecified Referrals: Marv Posey MD (PCP/Family) Departure Forms: Customer Survey General Discharge Information Admission Note Spoke With: Alex Lyles MDkrista Documentation of Exam: Documentation of any treatments & extenuating circumstances including Concerns Regarding Discharge (functional status, medication knowledge or non-compliance, living conditions, etc.) that warrant an admission rather than observation: Patient will require telemetry monitoring for new onset atrial fibrillation, cardiology consultation, patient will require echocardiogram, medication management secondary to likelihood of medication side effect from amlodipine, patient may require anticoagulation, Trandate and a change or patient has no bleeding secondary to history of chronic anemia. Patient will need IV diuresis with close monitoring of renal function. He says at this time is medically harmful. (Jayda Chua) PA/LEAD PRINTER Co-Sign Statement Statement: ED Attending supervision documentation- [X] I saw and evaluated the patient. I have also reviewed all the pertinent lab results and diagnostic results. I agree with the findings and the plan of care as documented in the PA's/LEAD PRINTER's documentation. [] I have reviewed the ED Record and agree with the PA's/LEAD PRINTER's documentation. [] Additions or exceptions (if any) to the PAs/LEAD PRINTER's note and plan are summarized below: [] (Shari KHAN,Zeke Faith) Critical Care Note Critical Care Note Critical Care Time: 30-74 min (Govind KRUSE,Jayda)
[2017-07-13] MEDS ORDERED: CARVEDILOL12.5 M1 PO (15:07)
[2017-07-13 15:56] LABS: ABSOLUTE BASOPHIL COUNT 0 /CUMM (0.0-0.2); ABSOLUTE EOSINOPHIL COUNT 0.1 /CUMM (0.0-0.7); ABSOLUTE GRANULOCYTE CT 4.2 /CUMM (1.4-6.5); ABSOLUTE LYMPH COUNT 1.4 /CUMM (1.2-3.4); ABSOLUTE MONOCYTE COUNT 0.8 /CUMM (0.10-0.60); BASOPHIL % 0.7 % (0.0-2.0); EOSINOPHIL % 2.3 % (0-5); HEMATOCRIT 29.5 % (42-52); MEAN CORPUSCULAR HGB 32.3 PG (27.0-31.0); MEAN CORPUSCULAR HGB CONC 32.9 G/DL (33.0-37.0); MEAN CORPUSCULAR VOLUME 98.4 FL (80.0-94.0); MEAN PLATELET VOLUME 8.9 FL (7.4-10.4); PLATELET COUNT 141 /CUMM (130-400); RBC DISTRIBUTION WIDTH 13.9 % (11.5-14.5); WHITE BLOOD CELL COUNT 6.6 /CUMM (4.8-10.8)
--- NOTE | 2017-07-13 16:03 | RADIOLOGY REPORT ---
EXAMINATION: XR PORTABLE CHEST CLINICAL INFORMATION: 86-year-old male patient with shortness of breath and leg edema. COMPARISON: Chest x-ray on 07/10/2016. TECHNIQUE: Portable AP semierect view of the chest was obtained. FINDINGS: Since 3 days ago, the patient has developed small effusions larger on the right than left. The heart remains enlarged. There is no sign of pulmonary edema superimposed upon patient's chronic lung disease. IMPRESSION: Since 3 days ago, the patient has now developed small pleural effusions. Cardiomegaly.
--- NOTE | 2017-07-13 20:06 | ULTRASOUND REPORT ---
EXAMINATION: US TRIPLEX OF LOWER EXTREMITIES, BILATERAL CLINICAL INFORMATION: Lower extremity swelling and pain COMPARISON: None available. TECHNIQUE: Color-flow triplex imaging with spectral analysis and compression Doppler were performed on the lower extremities. FINDINGS: Respiratory variation, normal compression and augmented flow are noted throughout the lower extremities. The visualized common femoral vein, superficial femoral vein, profunda femoral vein, popliteal vein and midcalf peroneal and posterior tibial venous segments show no evidence of deep venous thrombosis. There is a right popliteal fossa complex Marsh's cyst measuring 7.4 x 0.9 x 2.0 cm. This cyst exhibits heterogeneous echotexture and may be partially ruptured. There is a left popliteal fossa Marsh's cyst measuring 2.1 x 0.9 x 1.7 cm. IMPRESSION: There is no evidence of deep venous thrombosis involving the lower extremities. There is a right popliteal fossa complex Marsh's cyst measuring 7.4 x 0.9 x 2.0 cm. This cyst exhibits heterogeneous echotexture and may be partially ruptured. There is a left popliteal fossa Marsh's cyst measuring 2.1 x 0.9 x 1.7 cm.
--- NOTE | 2017-07-13 20:12 | History & Physical ---
Bethany Gaspar MD 07/13/17 2012: General Information and HPI MD Statement: I have seen and personally examined PEBBLES ALFONSO and documented this H&P. The patient is a 86 year old M who presented with a patient stated chief complaint of [lower extremity swelling]. Source of Information: patient, family Exam Limitations: no limitations History of Present Illness: Mr. Alfonso is an 86-year-old gentleman with past medical history significant for colon cancer status post resection and chemotherapy, short bowel syndrome, CKD, hypertension, diverticulosis, recurrent UTIs, diastolic dysfunction and crystal- induced arthritis presents with increased swelling of his bilateral lower extremities. According to the patient, he has had chronic lower extremity swelling which is getting worse for the past couple of months. Recently it has gotten worse to an extent that he couldn't work because of the swelling. He has been keeping the legs elevated without any relief. Today she called Dr. Laboy to make an appointment, who sent him to the ER for further evaluation. Denies any chest pain, palpitations, dyspnea on exertion, orthopnea or PND. Patient mentions history of skipped heart beats, used to follow-up with Dr. Sims and has had the Holter monitor placed couple of times in the past. Patient also reports diarrhea from short bowel syndrome after colectomy for colon cancer. He was found to have hemorrhoids and rectal polyp on a colonoscopy done on May, and underwent hemorrhoidectomy and polypectomy on July [address] Herrera. Reports rectal bleeding after the polypectomy and states that the bleeding seems like easing up. Patient also follows up with Dr. Madsen for his chronic kidney disease. Allergies/Medications Allergies: Coded Allergies: benazepril (From LOTREL) (UNKNOWN PER PT 07/08/17) cimetidine (UNKNOWN PER PT 07/08/17) fluconazole (From DIFLUCAN) (electrolytes off 07/08/17) Home Med list Amlodipine Besylate 5 MG TABLET 1 TAB PO BID BP (Reported) [BAKING SODA] 1 TSP PO DAILY GI (Reported) Calcium Carbonate/Vitamin D3 (Calcium + Vitamin D Tablet) (Unknown Strength) TABLET (Unknown Dose) PO DAILY SUPPLEMENT (Reported) Carvedilol 12.5 MG TABLET 1 TAB PO QPM HEART (Reported) Cholecalciferol (Vitamin D3) 1,000 UNIT TABLET 1 TAB PO DAILY VITAMIN SUPPORT (Reported) Lactobacillus Acidophilus (Acidophilus) 1 EACH CAPSULE 1 CAP PO DAILY GI ( Reported) Lipase/Protease/Amylase (Aide [place] Toro 36,000 Units Capsule) 36K-114K CAPSULE. 1 CAP PO BID PANCREATIC ENZYMES (Reported) Magnesium Oxide (Magnesium) 500 MG CAPSULE 1 CAP PO QAM SUPPLEMENT (Reported) Past History Travel History Traveled to [place] past 21 day No Medical History Neurological: NONE EENT: cataracts Cardiovascular: hypertension Respiratory: NONE Gastrointestinal: diverticulitis Hepatic: NONE Renal: chronic kidney disease Musculoskeletal: CHIP IN THE KNEE Psychiatric: NONE Endocrine: NONE Blood Disorders: NONE Cancer(s): colon/rectal cancer INVESTMENT ASSOCIATE/Reproductive: NONE History of MRSA: No History of VRE: No History of CDIFF: No Influenza Vaccine: 01/28/16 Surgical History Surgical History: colon resection Past Family/Social History Psychosocial History Services at Home: None Smoking Status: Former Smoker ETOH Use: denies use Illicit Drug Use: denies illicit drug use Functional Ability Ambulation: independent Review of Systems Review of Systems Constitutional: Reports: no symptoms. EENTM: Reports: no symptoms. Cardiovascular: Reports: peripheral edema. Respiratory: Reports: no symptoms. GI: Reports: no symptoms. Genitourinary: Reports: no symptoms. Musculoskeletal: Reports: no symptoms. Skin: Reports: no symptoms. Neurological/Psychological: Reports: no symptoms. Hematologic/Endocrine: Reports: no symptoms. Immunologic/Allergic: Reports: no symptoms. All Other Systems: Reviewed and Negative Exam & Diagnostic Data Last 24 Hrs of Vital Signs/I&O Vital Signs Date Time Temp Pulse Resp B/P B/P Pulse O2 O2 Flow FiO2 Mean Ox Delivery Rate 07/14 2235 98.7 73 18 164/78 99 Room Air 07/13 2234 158/78 07/13 2233 158/78 07/13 2049 98.2 69 18 157/80 98 Room Air 07/13 1922 97.6 60 18 159/70 98 Room Air 07/13 1547 Room Air 07/13 1500 97.4 62 18 150/99 98 Room Air 07/13 1257 98.8 71 18 156/11 94 Room Air 07/13 1257 77 18 156/111 94 Room Air Intake & Output 07/14 0800 07/14 0000 07/13 1600 Intake Total 200 Output Total 500 Balance -300 Intake, Oral 200 Output, Urine 500 Patient 164 lb 165 lb Weight Weight Bed scale Reported by Patient Measurement Method Physical Exam General Appearance Alert, Oriented X3, Cooperative, No Acute Distress Skin No Rashes, No Breakdown HEENT Atraumatic, PERRLA, EOMI, Mucous Membr. moist/pink Neck Supple, prolonged JVD Cardiovascular Regular Rate, Normal S1, Normal S2 Lungs Clear to Auscultation, Normal Air Movement Abdomen Normal Bowel Sounds, Soft, No Tenderness Extremities No Clubbing, No Cyanosis, +2 pitting edema bilaterally Last 24 Hrs of Labs/Jeff: Laboratory Tests 07/13/17 2253: Troponin I 0.05 07/13/17 1540: Anion Gap 14, Estimated GFR 30 L, BUN/Creatinine Ratio 14.8, Glucose 91, Calcium 8.8, Phosphorus 3.3, Magnesium 1.3 L, Total Bilirubin 1.1, AST 11 L, ALT 19 L, Alkaline Phosphatase 101, Troponin I 0.04, Rcs-X-Decqcraucod Pept 28080 H, Total Protein 6.6, Albumin 3.5, Globulin 3.1, Albumin/Globulin Ratio 1.1, D-Dimer High Sensitivty 466 H, CBC w Diff NO MAN DIFF REQ, RBC 3.00 L, MCV 98.4 H, MCH 32.3 H, MCHC 32.9 L, RDW 13.9, MPV 8.9, Gran % 64.0, Lymphocytes % 21.3, Monocytes % 11.7 H, Eosinophils % 2.3, Basophils % 0.7, Absolute Granulocytes 4.2, Absolute Lymphocytes 1.4, Absolute Monocytes 0.8 H, Absolute Eosinophils 0.1, Absolute Basophils 0 Diagnostic Data EKG Results Atrial flutter with left bundle branch block Heart rate 63 QTC 476 CXR Results IMPRESSION: Since 3 days ago, the patient has now developed small pleural effusions. Cardiomegaly. Other Results US-EXT BILAT VENOUS DOPPLER FINDINGS: Respiratory variation, normal compression and augmented flow are noted throughout the lower extremities. The visualized common femoral vein, superficial femoral vein, profunda femoral vein, popliteal vein and midcalf peroneal and posterior tibial venous segments show no evidence of deep venous thrombosis. There is a right popliteal fossa complex Marsh's cyst measuring 7.4 x 0.9 x 2.0 cm. This cyst exhibits heterogeneous echotexture and may be partially ruptured. There is a left popliteal fossa Marsh's cyst measuring 2.1 x 0.9 x 1.7 cm. IMPRESSION: There is no evidence of deep venous thrombosis involving the lower extremities. There is a right popliteal fossa complex Marsh's cyst measuring 7.4 x 0.9 x 2.0 cm. This cyst exhibits heterogeneous echotexture and may be partially ruptured. There is a left popliteal fossa Marsh's cyst measuring 2.1 x 0.9 x 1.7 cm. Assessment/Plan Assessment: Mr. Alfonso is an 86-year-old gentleman with past medical history significant for colon cancer status post resection and chemotherapy, short bowel syndrome, CKD, hypertension, diverticulosis, recurrent UTIs, diastolic dysfunction and crystal- induced arthritis presents with increased swelling of his bilateral lower extremities. Patient had stage I diastolic dysfunction and echocardiogram done in October 2016 with [id number] pulmonary hypertension now presents with worsening bilateral lower extremity edema, + JVD, a proBNP of 11,000 and chest x-ray showing new bilateral pleural effusions, most likely secondary to diastolic CHF exacerbation. Also even though the EKG shows atrial fibrillation, patient has a regular pulse and also mentions history of skipped beats with evaluation done in the past. Problem List; 1. Acute on chronic diastolic CHF exacerbation 2. ?? Atrial fibrillation 3. Chronic kidney disease 4. Chronic anemia 4. History of hypertension and short bowel syndrome - We will admit the patient to telemetry floor - Troponin and EKG 3 to rule out ACS. - Repeat echocardiogram - Start the patient on IV Lasix 40 mg daily - Strict ins and outs - Daily weights - Monitor creatinine and electrolytes while on Lasix. - Cardiology consult - Patient has questionable atrial fibrillation with heart rate in 60s, no need for heart rate control agents. Also the patient has guaiac-positive stools( likely from polypectomy), we will hold off on anticoagulation for now. - Bilateral Lower extremity Doppler negative for DVT. - Patient has chronic anemia with elevated MCV and normal RDW. We'll check B12 and folate levels. - Continue home medications. DVT Prophylaxis; Alps only(guaiac positive stools) Patient is full code As Ranked By This Provider Problem List: 1. Congestive heart failure Qualifiers Heart failure type: unspecified Heart failure chronicity: unspecified Qualified Code: I50.9 - Heart failure, unspecified 2. Short bowel syndrome 3. Chronic anemia Core Measures/Misc (01/10) Acute Coronary Syndrome ACS Diagnosis: No Congestive Heart Failure Congestive Heart Failure Diagnosis Yes Last Known EF % 60 No YAMINI/ARB d/t Medical Contraindication Cerebrovascular Accident CVA/TIA Diagnosis: No VTE (View Protocol) VTE Risk Factors Age>40 No Mechanical VTE Prophylaxis d/t N/A MechProphylax Ordered No VTE Pharm Prophylaxis d/t Other (Guaiac positive stools) Sepsis (View protocol) Sepsis Present: No Mihai Dobbs 07/14/17 0058: Resident Review Statement Resident Statement: examined this patient, discussed with international marketing specialist, agreed with international marketing specialist, discussed with family, reviewed EMR data (avail), discussed with nursing , discussed with case mgmt, reviewed images, amended to note Other Findings: This is a 86-year-old male with past medical history significant for hypertension, chronic kidney disease, colon cancer status post resection 22 years ago, on remission, short bowel syndrome, diverticulosis presented to the hospital for evaluation of worsening bilateral lower extremity swelling for few days. Patient reports that he has been having bilateral lower extremity swelling for few months. However he noticed worsening swelling for few days, difficulty to ambulate. Also reports shortness of breath on exertion. Denies any orthopnea, paroxysmal nocturnal dyspnea, chest pain, palpitations, fever, chills, productive cough. He denies any pain in lower extremities. Patient reports that he was on Lasix many years back, however that was discontinued. Echocardiogram in 2011 showed diastolic heart failure. He usually follows up with his tire cord weaver Dr. Domenico Brock. Patient also reports that he has irregular heartbeat, skipped beats in the past. However he is not on any anticoagulation. Patient has remote history of colon cancer, resection done 22 years ago, on remission, diarrhea on and off from short bowel syndrome. He follows up with Dr. Espinosa collateral analyst. He underwent colonoscopy on 05/31/2017, was found to have diverticulosis and distal rectal lesion recommending surgical consultation. He was seen by , underwent excision of rectal polyp on July 09. Since then patient reports that he has been having bleeding on and off. Patient states that he notices some blood after passing stool. Denies any nausea, vomiting, hematemesis, melena, abdominal pain. No change in urinary habits. He also reports history of chronic kidney disease, follows up with Dr. Henriquez. Vitals afebrile,HR 60, respiratory rate 18, blood pressure 159/70, saturating at 98 on room air. On exam HEENT wnl JVD S1-S2 normal no murmurs B/L breath sounds decreased at bases Abdomen soft, nontender, nondistended +3 pitting edema noted in lower extremities Pertinent labs wbc 6.6, hemoglobin 9.1, hematocrit 29, platelets 141 D-dimer 466 BUN 31, creatinine 2.1 ProBNP 11,000, troponin negative Bilateral lower extremity Doppler negative for DVT Chest x-ray showed bilateral small pleural effusions and cardiomegaly 1. Acute on chronic diastolic congestive heart failure Patient has history of diastolic congestive heart failure, echo 2011 showed diastolic stage I dysfunction. He was on Lasix in the past. However he was discontinued because of chronic kidney disease. Patient now presented with worsening bilateral lower extremity swelling and minimal shortness of breath on exertion. He was found to have elevated JVD, bilateral 3+ pitting edema, elevated proBNP 11,000, chest x-ray findings suggestive of small pleural effusions and cardiomegaly. * We will admit him to telemetry floor for management of congestive heart failure * Continuous telemetry monitoring * Monitor vitals every shift * Maintain oxygen saturation above 90 * Patient received 40 mg of IV Lasix in the ER. * We'll continue IV Lasix 40 mg daily * Cardiology consult in the a.m. with Dr. Domenico Brock * Ins and outs monitoring * Daily weights * closely monitor BUN and creatinine given his chronic kidney disease * Monitor electrolytes closely * Echocardiogram in a.m. 2. Abnormal EKG EKG at the time of admission showed irregularly irregular rate, looks like atrial fibrillation with PVC. However his pulse was regular. Patient reports that he has history of irregular heart rate, skipped beats in the past. He follows Domenico Mccann MD tire cord weaver. He was never on any anticoagulation. * Troponin was negative * Serial troponin and EKG * Continuous telemetry monitoring * Cardiology consult * Rate under control heart rate varying between 60-70 * ER doc spoke with Dr. Cyr tire cord weaver, no recommendations for IV heparin. 3. Chronic kidney disease Patient reports that he has chronic kidney disease, most likely from hypertension. His baseline creatinine varies between 2-2.2. * Creatinine at the time of admission 2.1 * Closely monitor creatinine as he is on Lasix now * Follows Dr. Henriquez outpatient for chronic kidney disease 4. Elevated D dimers Patient was found to have bilateral lower extremity swelling with difficulty to ambulate. D dimers at the time of admission 466. Bilateral lower extremity venous ultrasound was done which ruled out deep vein thrombosis. 5. Hypertension * Continue amlodipine 5 mg twice daily * Continue carvedilol 12.5 mg at bedtime 6. h/o colon cancer Patient has remote history of colon cancer, resection done 22 years ago, on remission, diarrhea on and off from short bowel syndrome. He follows up with Dr. Espinosa collateral analyst. He underwent colonoscopy on 05/31/2017, was found to have diverticulosis and distal rectal lesion recommending surgical consultation. He was seen by , underwent excision of rectal polyp on July 09. Since then patient reports that he has been having bleeding on and off. Patient states that he notices some blood after passing stool. * Heme positive stool * Monitor H&H closely Continue calcium, vitamin D, magnesium oxide, lactobacillus. Patient is full code Heart healthy diet Alps only given heme-positive stool and bleeding Rafal KHAN, [facility] 07/14/17 0521: Attending MD Review Statement Attending Statement Attending MD Statement: examined this patient, discuss w/resident/PA/MODEL MAKER PLASTER, agreed w/resident/PA/MODEL MAKER PLASTER, discussed with family, reviewed images, amended to note Attending Assessment/Plan: 86 yo M with h/o colon cancer s/p resection and chemo now in remission, with short bowel syndrome, recurrent diarrhea, CKD, HTN, irregular heartbeat, is here for evaluation of worsening lower extremity edema and inability to ambulate for the past few weeks. PCP asked him to come to the ER for further evaluation. He reports mild exertional dyspnea especially when he was changing positions in his bed. He is able to do a flight of stairs without any discomfort per patient. Patient denies chest pain, palpitations or lightheadedness. While in the ER, his EKG was noted to be abnormal. Patient reports a history of irregular heartbeat he was told that he has 'skipped beats' and underwent Holter for the same. Dr. Mccann is patient's tire cord weaver. Patient denies any h /o afib or aflutter. Patient recently underwent colonoscopy (May 31) for cancer screening, was noted to have a distal rectal lesion that was adjacent to hemorrhoids. Dr. Herrera then did a transanal excision of the rectal polyp and ligated an internal hemorrhoid on July 09. Since the procedure, patient has noted some minimal rectal bleeding but this seems to be resolving. Vitals are stable except for borderline hypertension. Exam as above. Pulses are equal and regular. Labs: macrocytic anemia, H/H 9.7/29.5 (baseline 9-11/ 28-34), D-dimer 466, bicarb 19, BUN 32, creat 2.1 (baseline 1.8 2.4), Mag 1.3, trop neg, proBNP [id number]. CXR: cardiomegaly, small pleural effusions larger on right than left, chronic pleural parenchymal scarring. LE doppler: no DVT, bilateral marsh's cyst, right possibly partially ruptured. Echo (2011): EF 60-65%, stage 1 diastolic dysfunction, mild to moderate pulm hypertension, mild to mod AR. EKG: reported as Afib, but seems sinus with multiple PVC's and LBBB (old). Rectal exam: guaiac positive. Assessment and plan: 1. Acute on chronic diastolic heart failure 2. Abnormal EKG, does not appear to be Afib 3. Essential hypertension 4. CKD stage 3 stable 5. Chronic anemia 6. Recent polyp resection and hemorrhoidectomy - Admit to Telemetry - Daily weights, strict I/O's - IV lasix 40 daily - Obtain echocardiogram - Cardio consult - Replete electrolytes, Mag > 2.0 and K> 4.0 - Serial EKG and troponin to rule out ACS - Resume amlodipine and coreg - No need for anticoagulation at this point - Type and crossmatch - Goal Hb > 8.0 DVT ppx Alps (due to recent procedure and rectal bleeding). Full code.
--- NOTE | 2017-07-13 21:57 | Admission Certification ---
Admission Certification Certification Statement - As attending physician, I certify that at the time of - admission, based on clinical presentation, severity of - symptoms, need for further diagnostic testing and - therapeutic interventions, and risk of adverse outcomes - without in-hospital treatment, in my clinical assessment, - this patient requires an acute hospital stay for a minimum - of two nights or longer. I have also considered psychsocial - factors such as support system, advanced age, financial - issues, cognitive issues, and failed out-patient treatments, - past re-admission history, safety of patient, and lack of - compliance as applicable. Specific rationale supporting this admission is: Acute on chronic diastolic congestive heart failure.
[2017-07-13 22:36] VITALS: BP 164/78
[2017-07-14 04:44] LABS: ABSOLUTE BASOPHIL COUNT 0 /CUMM (0.0-0.2); ABSOLUTE EOSINOPHIL COUNT 0.1 /CUMM (0.0-0.7); ABSOLUTE GRANULOCYTE CT 3.5 /CUMM (1.4-6.5); BASOPHIL % 0.4 % (0.0-2.0); EOSINOPHIL % 2.4 % (0-5); GRANULOCYTE % 60.8 % (42.2-75.2); RED BLOOD CELL CT 2.76 /CUMM (4.70-6.10); WHITE BLOOD CELL COUNT 5.8 /CUMM (4.8-10.8)
[2017-07-14 04:46] LABS: ABSOLUTE LYMPH COUNT 1.4 /CUMM (1.2-3.4); ABSOLUTE MONOCYTE COUNT 0.7 /CUMM (0.10-0.60); HEMATOCRIT 27.2 % (42-52); MEAN CORPUSCULAR HGB 31.9 PG (27.0-31.0); MEAN CORPUSCULAR HGB CONC 32.3 G/DL (33.0-37.0); MEAN CORPUSCULAR VOLUME 98.6 FL (80.0-94.0); MEAN PLATELET VOLUME 9.3 FL (7.4-10.4); PLATELET COUNT 135 /CUMM (130-400); RBC DISTRIBUTION WIDTH 13.7 % (11.5-14.5)
[2017-07-14 07:18] VITALS: BP 142/76
--- NOTE | 2017-07-14 07:35 | PN- Housestaff ---
Lena Lee 07/14/17 0734: Subjective Follow-up For: 1. Acute on chronic diastolic heart failure 2. Abnormal EKG, does not appear to be Afib 3. Essential hypertension 4. CKD stage 3 stable 5. Chronic anemia 6. Recent polyp resection and hemorrhoidectomy Tele-Events Since Last Visit: 3.4s pause overnight ,bradycardia at 40s, 1 or 2 degree heart block with prolonged MS> Subjective: No overnight event. Patient was resting under RA without specific complaint. Review of Systems Constitutional: Reports: see HPI. Objective Last 24 Hrs of Vital Signs/I&O Vital Signs Date Time Temp Pulse Resp B/P B/P Pulse O2 O2 Flow FiO2 Mean Ox Delivery Rate 07/14 0947 60 120/70 07/14 0718 99.1 57 18 142/76 94 Room Air 07/13 2236 98.7 73 18 164/78 99 Room Air 07/13 2234 158/78 07/13 2234 158/78 07/13 2049 98.2 69 18 157/80 98 Room Air 07/13 1922 97.6 60 18 159/70 98 Room Air 07/13 1547 Room Air 07/13 1500 97.4 62 18 150/99 98 Room Air 07/13 1257 98.8 71 18 156/11 94 Room Air 07/13 1257 77 18 156/111 94 Room Air Intake & Output 07/14 1600 07/14 0800 07/14 0000 Intake Total 100 200 Output Total 0 500 Balance -1950 -300 Intake, Oral 100 200 Output, Urine 2049 500 Patient 74.446 kg Weight Weight Bed scale Measurement Method Physical Exam General Appearance: Alert, Oriented X3, Cooperative, No Acute Distress Neck: JVD Cardiovascular: Regular Rate Lungs: Clear to Auscultation, Normal Air Movement Abdomen: Normal Bowel Sounds, Soft, No Tenderness Neurological: Normal Speech Extremities: Normal Pulses, +1-2 edema BLE Current Medications: Current Medications Sig/Lico Start time Last Medication Dose Route Stop Time Status Admin Acetaminophen 650 MG Q6P PRN 07/13 2129 AC PO Amlodipine Besylate 5 MG BID 07/13 2199 AC 07/14 PO 0947 Carvedilol 12.5 MG QPM 07/13 220 DC 07/13 PO 2234 Cholecalciferol 1,000 IU DAILY 07/14 1000 AC 07/14 PO 0947 Furosemide 40 MG DAILY 07/14 1000 AC 07/14 IV 0948 Furosemide 20 MG ONCE ONE 07/13 2130 DC 07/13 IV 07/13 2131 2235 Furosemide 0 .STK-MED ONE 07/13 1648 DC IV Furosemide 20 MG ONCE ONE 07/13 1645 DC 07/13 IV 07/13 1646 1645 Lactobacillus 1 CAP DAILY 07/14 1000 AC 07/14 Acidophilus PO 0947 Magnesium Oxide 400 MG DAILY 07/14 1000 DC PO Magnesium Oxide 400 MG BID 07/14 1000 AC 07/14 PO 0948 Magnesium Sulfate 1 GM Q2H 07/14 0645 DC 07/14 Dextrose/Water 100 ML IV 07/14 1044 0921 Potassium Chloride 40 MEQ ONCE ONE 07/14 0645 DC 07/14 PO 07/14 0646 0647 Last 24 Hrs of Lab/Jeff Results Last 24 Hrs of Labs/Mics: Laboratory Tests 07/14/17 0415: Troponin I 0.05 07/14/17 0415: Anion Gap 13, Estimated GFR 29 L, BUN/Creatinine Ratio 15.9, CBC w Diff NO MAN DIFF REQ, RBC 2.76 L, MCV 98.6 H, MCH 31.9 H, MCHC 32.3 L, RDW 13.7, MPV 9.3 , Gran % 60.8, Lymphocytes % 24.4, Monocytes % 12.0 H, Eosinophils % 2.4, Basophils % 0.4, Absolute Granulocytes 3.5, Absolute Lymphocytes 1.4, Absolute Monocytes 0.7 H, Absolute Eosinophils 0.1, Absolute Basophils 0 07/13/17 2253: Troponin I 0.05 07/13/17 1540: Anion Gap 14, Estimated GFR 30 L, BUN/Creatinine Ratio 14.8, Glucose 91, Calcium 8.8, Phosphorus 3.3, Magnesium 1.3 L, Total Bilirubin 1.1, AST 11 L, ALT 19 L, Alkaline Phosphatase 101, Troponin I 0.04, Ptu-[id number] Pept 01724 H, Total Protein 6.6, Albumin 3.5, Globulin 3.1, Albumin/Globulin Ratio 1.1, D-Dimer High Sensitivty 466 H, CBC w Diff NO MAN DIFF REQ, RBC 3.00 L, MCV 98.4 H, MCH 32.3 H, MCHC 32.9 L, RDW 13.9, MPV 8.9, Gran % 64.0, Lymphocytes % 21.3, Monocytes % 11.7 H, Eosinophils % 2.3, Basophils % 0.7, Absolute Granulocytes 4.2, Absolute Lymphocytes 1.4, Absolute Monocytes 0.8 H, Absolute Eosinophils 0.1, Absolute Basophils 0 Assessment/Plan Assessment: Mr. Mora is a 86-year-old male with past medical history significant for hypertension, chronic kidney disease, colon cancer status post resection 22 years ago, on remission, short bowel syndrome, diverticulosis presented to the hospital for evaluation of worsening bilateral lower extremity swelling for few days. Patient reports that he has been having bilateral lower extremity swelling for few months. However he noticed worsening swelling for few days, difficulty to ambulate. Also reports shortness of breath on exertion. Denies any orthopnea, paroxysmal nocturnal dyspnea, chest pain, palpitations, fever, chills, productive cough. He denies any pain in lower extremities. Patient reports that he was on Lasix many years back, however that was discontinued. Echocardiogram in 2011 showed diastolic heart failure. He usually follows up with his spa attendant Dr. Domenico Brock. Patient also reports that he has irregular heartbeat, skipped beats in the past. However he is not on any anticoagulation. Patient has remote history of colon cancer, resection done 22 years ago, on remission, diarrhea on and off from short bowel syndrome. He follows up with Dr. Espinosa office machine technician. He underwent colonoscopy on 05/31/2017, was found to have diverticulosis and distal rectal lesion recommending surgical consultation. He was seen by , underwent excision of rectal polyp on July 09. Since then patient reports that he has been having bleeding on and off. Patient states that he notices some blood after passing stool. Denies any nausea, vomiting, hematemesis, melena, abdominal pain. No change in urinary habits. He also reports history of chronic kidney disease, follows up with Dr. Henriquez. On admission Vitals afebrile,HR 60, respiratory rate 18, blood pressure 159/70, saturating at 98 on room air. On exam HEENT wnl JVD S1-S2 normal no murmurs B/L breath sounds decreased at bases Abdomen soft, nontender, nondistended +3 pitting edema noted in lower extremities Pertinent labs wbc 6.6, hemoglobin 9.1, hematocrit 29, platelets 141 D-dimer 466 BUN 31, creatinine 2.1 ProBNP 11,000, troponin negative Bilateral lower extremity Doppler negative for DVT Chest x-ray showed bilateral small pleural effusions and cardiomegaly 1. Acute on chronic diastolic congestive heart failure Patient has history of diastolic congestive heart failure, echo 2011 showed diastolic stage I dysfunction. He was on Lasix in the past. However he was discontinued because of chronic kidney disease. Patient now presented with worsening bilateral lower extremity swelling and minimal shortness of breath on exertion. He was found to have elevated JVD, bilateral 3+ pitting edema, elevated proBNP 11,000, chest x-ray findings suggestive of small pleural effusions and cardiomegaly. * Continue telemetry * Monitor vitals every shift * Maintain oxygen saturation above 90 * Patient was continued on IV Lasix 40 mg daily * Cardiology consult in the a.m. with Dr. Domenico Sims * Ins and outs monitoring * Daily weights * closely monitor BUN and creatinine given his chronic kidney disease * Monitor electrolytes closely * Pending Echocardiogram in a.m. 2. Abnormal EKG EKG at the time of admission showed irregularly irregular rate, looks like atrial fibrillation with PVC. However his pulse was regular. Patient reports that he has history of irregular heart rate, skipped beats in the past. He follows Domenico Mccann MD spa attendant. He was never on any anticoagulation. * Troponin was negative * Serial troponin and EKG had been negative. * Continuous telemetry monitoring * Cardiology consult as above * Rate under control heart rate varying between 60-70 * ER doc spoke with Dr. Cyr spa attendant, no recommendations for IV heparin. 3. Chronic kidney disease Patient reports that he has chronic kidney disease, most likely from hypertension. His baseline creatinine varies between 2-2.2. * Creatinine at the time of admission 2.1. Cr was 2.2 on latest lab. * Closely monitor creatinine as he is on Lasix now * Follows Dr. Henriquez outpatient for chronic kidney disease 4. Elevated D dimers Patient was found to have bilateral lower extremity swelling with difficulty to ambulate. D dimers at the time of admission 466. Bilateral lower extremity venous ultrasound was done which ruled out deep vein thrombosis. 5. Hypertension * Continue amlodipine 5 mg twice daily * Continue carvedilol 12.5 mg at bedtime 6. h/o colon cancer Patient has remote history of colon cancer, resection done 22 years ago, on remission, diarrhea on and off from short bowel syndrome. He follows up with Dr. Espinosa office machine technician. He underwent colonoscopy on 05/31/2017, was found to have diverticulosis and distal rectal lesion recommending surgical consultation. He was seen by , underwent excision of rectal polyp on July 09. Since then patient reports that he has been having bleeding on and off. Patient states that he notices some blood after passing stool. * Heme positive stool * Monitor H&H closely - Continued home meds including calcium, vitamin D, magnesium oxide, lactobacillus. Patient is full code Heart healthy diet Alps only given heme-positive stool and bleeding Problem List: 1. Congestive heart failure Pain Ratin Pain Location: NA Pain Goal: Remain pain free Pain Plan: see AP Tomorrow's Labs & Rationales: ALEXANDRA Muhammad MD,Hipolito 07/14/17 1437: Attending MD Review Statement Attending Statement Attending MD Statement: examined this patient, discuss w/resident/PA/SOFT IRON INSPECTOR, agreed w/resident/PA/SOFT IRON INSPECTOR, reviewed EMR data (avail), discussed with nursing, discussed with case mgmt, amended to note Attending Assessment/Plan: Patient seen and examined. Resting comfortably not in any acute distress. No issues overnight. Denies chest pain or shortness of breath. Denies cough. On examination he does not appear clinically volume overloaded. He has 1+ pedal edema limited to the ankles. Cardiology consultation appreciated. On account of patient's bradycardia/conduction disease beta-lakisha therapy has been discontinued. Calcium channel blockers also going to be discontinued due to his lower extremity edema. Will follow up with his nephrology service regarding starting patient on an YAMINI inhibitor or ARB. He does have Zestril listed on his medication allergies however it is unclear what reaction he has to this. Transition patient to oral Lasix. Monitor closely off other antihypertensive medications until further discussions with his waterworks supervisor
--- NOTE | 2017-07-14 13:05 | Cons- Cardiology ---
See Addendum General Information and HPI Consulting Request Date of Consult: 07/14/17 Requested By: Hipolito Muhammad MD Reason for Consult: Edema, bradycardia Source of Information: patient, old records History of Present Illness: This is a pleasant 86-year-old male with a past medical history of hypertension, CKD, intraventricular conduction delay, colon cancer, and aortic regurgitation who presents to [facility] with a chief complaint of progressive lower extremity edema over the last few weeks; denies any associated shortness of breath, orthopnea, or paroxysmal nocturnal dyspnea. He also denies any chest pain, palpitations, or dizziness. Denies any syncope, slurring of speech, headache, or focal weakness. Allergies/Medications Allergies: Coded Allergies: benazepril (From LOTREL) (UNKNOWN PER PT 07/08/17) cimetidine (UNKNOWN PER PT 07/08/17) fluconazole (From DIFLUCAN) (electrolytes off 07/08/17) Home Med List: Amlodipine Besylate 5 MG TABLET 1 TAB PO BID BP (Reported) [BAKING SODA] 1 TSP PO DAILY GI (Reported) Calcium Carbonate/Vitamin D3 (Calcium + Vitamin D Tablet) (Unknown Strength) TABLET (Unknown Dose) PO DAILY SUPPLEMENT (Reported) Carvedilol 12.5 MG TABLET 1 TAB PO QPM HEART (Reported) Cholecalciferol (Vitamin D3) 1,000 UNIT TABLET 1 TAB PO DAILY VITAMIN SUPPORT (Reported) Lactobacillus Acidophilus (Acidophilus) 1 EACH CAPSULE 1 CAP PO DAILY GI ( Reported) Lipase/Protease/Amylase (Aide Del Toro 36,000 Units Capsule) 36K-114K CAPSULE.DR 1 CAP PO BID PANCREATIC ENZYMES (Reported) Magnesium Oxide (Magnesium) 500 MG CAPSULE 1 CAP PO QAM SUPPLEMENT (Reported) Current Medications: Current Medications Sig/Lico Start time Last Medication Dose Route Stop Time Status Admin Acetaminophen 650 MG Q6P PRN 07/130 AC PO Amlodipine Besylate 5 MG BID 07/130 AC 07/14 PO 0947 Carvedilol 12.5 MG QPM 07/13 2199 DC 07/13 PO 223 Cholecalciferol 1,000 IU DAILY 07/14 1000 AC 07/14 PO 0947 Furosemide 40 MG DAILY 07/14 1000 AC 07/14 IV 0948 Furosemide 20 MG ONCE ONE 07/13 2129 DC 07/13 IV 03/20 2131 2235 Furosemide 0 .STK-MED ONE 07/13 1648 DC IV Furosemide 20 MG ONCE ONE 07/13 1645 DC 07/13 IV 07/13 1646 1645 Lactobacillus 1 CAP DAILY 07/14 1000 AC 07/14 Acidophilus PO 0947 Magnesium Oxide 400 MG DAILY 07/14 1000 DC PO Magnesium Oxide 400 MG BID 07/14 1000 AC 07/14 PO 0948 Magnesium Sulfate 1 GM Q2H 07/14 0645 DC 07/14 Dextrose/Water 100 ML IV 07/14 1044 0921 Potassium Chloride 40 MEQ ONCE ONE 07/14 0645 DC 07/14 PO 07/14 0646 0647 Review of Systems Review of Systems: Review of systems as per HPI. The remainder of a 10 point review of systems was reviewed and was otherwise negative. 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: NONE Surgical History Surgical History: colon resection Psychosocial History Services at Home: None Smoking Status: Former Smoker ETOH Use: denies use Illicit Drug Use: denies illicit drug use Functional Ability Ambulation: independent Exam & Diagnostic Data Vital Signs and I&O Vital Signs Date Time Temp Pulse Resp B/P B/P Pulse O2 O2 Flow FiO2 Mean Ox Delivery Rate 07/14 0947 60 120/70 07/14 0718 99.1 57 18 142/76 94 Room Air 07/14 2235 98.7 73 18 164/78 99 Room Air 07/134 158/78 07/134 158/78 07/13 2049 98.2 69 18 157/80 98 Room Air 07/13 1922 97.6 60 18 159/70 98 Room Air 07/13 1547 Room Air 07/13 1500 97.4 62 18 150/99 98 Room Air 07/13 1257 98.8 71 18 156/11 94 Room Air 07/13 1257 77 18 156/111 94 Room Air Intake & Output 07/14 1600 07/14 0800 07/14 0000 07/13 1600 07/13 0800 07/13 0000 Intake Total 100 200 Output Total 2049 500 Balance -1950 -300 Intake, Oral 100 200 Output, Urine 2050 500 Patient 164 lb 165 lb Weight Weight Bed scale Reported by Patient Measurement Method Physical Exam: General: no apparent distress. Alert. Eyes: No obvious scleral icterus. HEENT: No jugular venous distention or abnormal jugular venous pulsations. Cardiovascular: Normal intensity S1/S2. One out of 6 systolic murmur Respiratory: Lungs clear to auscultation bilaterally. Abdomen: Soft, nontender with no guarding or rebound tenderness. Musculoskeletal: No clubbing or cyanosis noted; 1 to 2+ lower extremity edema Skin: Warm Neurologic: No gross focal deficits noted. Lymph: No gross lymphadenopathy. Labs/Jeff Results: Laboratory Tests 07/14 07/14 07/13 1445 4902 4485 Chemistry Sodium (137 - 145 mmol/L) 145 Potassium (3.5 - 5.1 mmol/L) 3.6 Chloride (98 - 107 mmol/L) 112 H Carbon Dioxide (22 - 30 mmol/L) 20 L Anion Gap (5 - 16) 13 BUN (9 - 20 mg/dL) 35 H Creatinine (0.7 - 1.2 mg/dL) 2.2 H Estimated GFR (>60 ml/min) 29 L BUN/Creatinine Ratio (7 - 25 %) 15.9 Troponin I (<0.11 ng/ml) 0.05 0.05 Hematology CBC w Diff NO MAN DIFF REQ WBC (4.8 - 10.8 /CUMM) 5.8 RBC (4.70 - 6.10 /CUMM) 2.76 L Hgb (14.0 - 18.0 G/DL) 8.8 L Hct (42 - 52 %) 27.2 L MCV (80.0 - 94.0 FL) 98.6 H MCH (27.0 - 31.0 PG) 31.9 H MCHC (33.0 - 37.0 G/DL) 32.3 L RDW (11.5 - 14.5 %) 13.7 Plt Count (130 - 400 /CUMM) 135 MPV (7.4 - 10.4 FL) 9.3 Gran % (42.2 - 75.2 %) 60.8 Lymphocytes % (20.5 - 51.1 %) 24.4 Monocytes % (1.7 - 9.3 %) 12.0 H Eosinophils % (0 - 5 %) 2.4 Basophils % (0.0 - 2.0 %) 0.4 Absolute Granulocytes (1.4 - 6.5 /CUMM) 3.5 Absolute Lymphocytes (1.2 - 3.4 /CUMM) 1.4 Absolute Monocytes (0.10 - 0.60 /CUMM) 0.7 H Absolute Eosinophils (0.0 - 0.7 /CUMM) 0.1 Absolute Basophils (0.0 - 0.2 /CUMM) 0 03/20 1540 Chemistry Sodium (137 - 145 mmol/L) 144 Potassium (3.5 - 5.1 mmol/L) 4.1 Chloride (98 - 107 mmol/L) 110 H Carbon Dioxide (22 - 30 mmol/L) 19 L Anion Gap (5 - 16) 14 BUN (9 - 20 mg/dL) 31 H Creatinine (0.7 - 1.2 mg/dL) 2.1 H Estimated GFR (>60 ml/min) 30 L BUN/Creatinine Ratio (7 - 25 %) 14.8 Glucose (65 - 99 mg/dL) 91 Calcium (8.4 - 10.2 mg/dL) 8.8 Phosphorus (2.5 - 4.5 mg/dL) 3.3 Magnesium (1.6 - 2.3 mg/dL) 1.3 L Total Bilirubin (0.2 - 1.3 mg/dL) 1.1 AST (17 - 59 U/L) 11 L ALT (21 - 72 U/L) 19 L Alkaline Phosphatase (< 127 U/L) 101 Troponin I (<0.11 ng/ml) 0.04 [id number] Pept (<125 pg/mL) 80093 H Total Protein (6.3 - 8.2 g/dL) 6.6 Albumin (3.5 - 5.0 g/dL) 3.5 Globulin (1.9 - 4.2 gm/dL) 3.1 Albumin/Globulin Ratio (1.1 - 2.2 %) 1.1 Coagulation D-Dimer High Sensitivty (0 - 243 ng/ml) 466 H Hematology CBC w Diff NO MAN DIFF REQ WBC (4.8 - 10.8 /CUMM) 6.6 RBC (4.70 - 6.10 /CUMM) 3.00 L Hgb (14.0 - 18.0 G/DL) 9.7 L Hct (42 - 52 %) 29.5 L MCV (80.0 - 94.0 FL) 98.4 H MCH (27.0 - 31.0 PG) 32.3 H MCHC (33.0 - 37.0 G/DL) 32.9 L RDW (11.5 - 14.5 %) 13.9 Plt Count (130 - 400 /CUMM) 141 MPV (7.4 - 10.4 FL) 8.9 Gran % (42.2 - 75.2 %) 64.0 Lymphocytes % (20.5 - 51.1 %) 21.3 Monocytes % (1.7 - 9.3 %) 11.7 H Eosinophils % (0 - 5 %) 2.3 Basophils % (0.0 - 2.0 %) 0.7 Absolute Granulocytes (1.4 - 6.5 /CUMM) 4.2 Absolute Lymphocytes (1.2 - 3.4 /CUMM) 1.4 Absolute Monocytes (0.10 - 0.60 /CUMM) 0.8 H Absolute Eosinophils (0.0 - 0.7 /CUMM) 0.1 Absolute Basophils (0.0 - 0.2 /CUMM) 0 Diagnostic Data EKG Results Tracing was personally reviewed and shows sinus rhythm with first-degree AV block, intraventricular conduction delay, and PVCs CXR Results Since 3 days ago, the patient has now developed small pleural effusions. Cardiomegaly. Other Results Telemetry tracings were personally reviewed and show sinus rhythm and sinus bradycardia with occasional episodes of 2:1 AV block Assessment/Plan Assessment/Plan 1. Bilateral lower extremity edema 2. Chronic kidney disease 3. Asymptomatic conduction disease/bradycardia 4. History of aortic tissue 5. History of colon cancer The patient presents with progressive lower extremity edema but this was not associated with any shortness of breath/orthopnea; not clearly due to the diastolic congestive heart failure but is reasonable to try diuresis for now. Would discontinue his outpatient beta lakisha given the bradycardia/conduction disease. The calcium channel lakisha could be contributing to the lower extremity edema; would discontinue for now and see if renal would be okay with a trial of ARB (unclear if the patient truly has any allergy to YAMINI inhibitor). Agree with obtaining an echocardiogram. Vincent Nath MD [facility] Consult Acknowledgment - Thank you for your consult request.
[2017-07-14 14:30] VITALS: BP 147/76
[2017-07-14 15:52] LABS: ABSOLUTE BASOPHIL COUNT 0 /CUMM (0.0-0.2); ABSOLUTE EOSINOPHIL COUNT 0.2 /CUMM (0.0-0.7); ABSOLUTE GRANULOCYTE CT 4.9 /CUMM (1.4-6.5); ABSOLUTE MONOCYTE COUNT 0.8 /CUMM (0.10-0.60); BASOPHIL % 0.3 % (0.0-2.0); EOSINOPHIL % 2.7 % (0-5); GRANULOCYTE % 61.9 % (42.2-75.2); HEMATOCRIT 29.6 % (42-52); MEAN CORPUSCULAR HGB 32.5 PG (27.0-31.0); MEAN CORPUSCULAR VOLUME 98.4 FL (80.0-94.0); MEAN PLATELET VOLUME 9.2 FL (7.4-10.4); PLATELET COUNT 154 /CUMM (130-400); RBC DISTRIBUTION WIDTH 13.5 % (11.5-14.5); RED BLOOD CELL CT 3.01 /CUMM (4.70-6.10); WHITE BLOOD CELL COUNT 7.9 /CUMM (4.8-10.8)
--- NOTE | 2017-07-14 16:16 | Patient Discharge Instructions ---
Discharge Instructions General Discharge Information Special Instructions: - Please follow up with your chief business development officer Dr. Mccann within 1-2 weeks of discharge. - Please follow up with your primary care physician within 1-2 weeks of discharge. Inform your primary care physician of this admission to [facility]. - Continue your current medications per discharge instructions. - Please watch for these problems: Fever, Chills, Nausea, Vomiting, Shortness of Breath, Productive Cough, Chest Pain/Discomfort, Abdominal Pain, Active Bleeding or Bloody urine/stool. Diet Continue normal diet: Yes Recommended Diet: Heart Healthy Activity Full Activity/No Limits: Yes Acute Coronary Syndrome Inclusion Criteria At DC or during hospital stay patient has or had the following: ACS DIAGNOSIS No Discharge Core Measures Meds if any: Prescribed or Continued at Discharge Meds if any: NOT Prescribed or Continued at Discharge Congestive Heart Failure Inclusion Criteria At DC or during hospital stay patient has or had the following: CHF DIAGNOSIS No Discharge Core Measures Meds if any: Prescribed or Continued at Discharge Meds if any: NOT Prescribed or Continued at Discharge Cerebrovascular accident Inclusion Criteria At DC or during hospital stay patient has or had the following: CVA/TIA Diagnosis No Discharge Core Measures Meds if any: Prescribed or Continued at Discharge Meds if any: NOT Prescribed or Continued at Discharge Venous thromboembolism Inclusion Criteria VTE Diagnosis No VTE Type NONE VTE Confirmed by (Test) NONE Discharge Core Measures - Per Current guidelines, there needs to be overlap - treatment for the first 5 days of Warfarin therapy. - If discharged on Warfarin prior to 5 days of - overlap therapy, the patient will need to be - assessed for post discharge needs including - *Post discharge parental anticoagulation - *Warfarin and/or parental anticoagulation education - *Follow up date to check INR post discharge At least 5 days overlap therapy as Inpatient No Meds if any: Prescribed or Continued at Discharge Note: Overlap Therapy is Warfarin and Anticoagulant Meds if any: NOT Prescribed or Continued at Discharge
--- NOTE | 2017-07-14 16:19 | Discharge Summary ---
Visit Information Visit Dates Admission Date: 07/13/17 Discharge Date: 07/15/2017 Hospital Course Course Attending Physician: Hipolito Muhammad MD Primary Care Physician: Taty KHAN,Marv Alex Hospital Course: Mr. Mora is a 86-year-old male with past medical history significant for hypertension, chronic kidney disease, colon cancer status post resection 22 years ago, on remission, short bowel syndrome, diverticulosis presented to the hospital for evaluation of worsening bilateral lower extremity swelling for few days. Patient reports that he has been having bilateral lower extremity swelling for few months. However he noticed worsening swelling for few days, difficulty to ambulate. Also reports shortness of breath on exertion. Denies any orthopnea, paroxysmal nocturnal dyspnea, chest pain, palpitations, fever, chills, productive cough. He denies any pain in lower extremities. Patient reports that he was on Lasix many years back, however that was discontinued. Echocardiogram in 2011 showed diastolic heart failure. He usually follows up with his hospitality host Dr. Domenico Brock. Patient also reports that he has irregular heartbeat, skipped beats in the past. However he is not on any anticoagulation. Patient has remote history of colon cancer, resection done 22 years ago, on remission, diarrhea on and off from short bowel syndrome. He follows up with Dr. Espinosa jacquard lo[employer] card changer. He underwent colonoscopy on 05/31/2017, was found to have diverticulosis and distal rectal lesion recommending surgical consultation. He was seen by , underwent excision of rectal polyp on July 09. Since then patient reports that he has been having bleeding on and off. Patient states that he notices some blood after passing stool. Denies any nausea, vomiting, hematemesis, melena, abdominal pain. No change in urinary habits. He also reports history of chronic kidney disease, follows up with Dr. Henriquez. On admission Vitals afebrile,HR 60, respiratory rate 18, blood pressure 159/70, saturating at 98 on room air. On exam HEENT wnl JVD S1-S2 normal no murmurs B/L breath sounds decreased at bases Abdomen soft, nontender, nondistended +3 pitting edema noted in lower extremities Pertinent labs wbc 6.6, hemoglobin 9.1, hematocrit 29, platelets 141 D-dimer 466 BUN 31, creatinine 2.1 ProBNP 11,000, troponin negative Bilateral lower extremity Doppler negative for DVT Chest x-ray showed bilateral small pleural effusions and cardiomegaly 1. Hx of diastolic congestive heart failure Patient has history of diastolic congestive heart failure, echo 2011 showed diastolic stage I dysfunction. He was on Lasix in the past. However he was discontinued because of chronic kidney disease. Patient now presented with worsening bilateral lower extremity swelling and minimal shortness of breath on exertion. He was found to have elevated JVD, bilateral 3+ pitting edema, elevated proBNP 11,000, chest x-ray findings suggestive of small pleural effusions and cardiomegaly. Cardiology was consulted and recommended that patient's bilateral lower extremity edema was likely due to the use of amlodipine and/or bilateral marsh cysts of his knees, as patient's imaging and physical examination, without particular symptoms of respiratory distress/needs for oxygen, would point the etiology to acute exacerbation of CHF. Patient was maintained on IV, then oral lasix 40mg daily, on negative fluid balace, and discontinued on Amlodipine and started lisinopril for his blood pressure control and CHF. In hospital Echo revealed EF 45-50%, Dilated left ventricle with mildly reduced left ventricular systolic function. Moderate to severe Aortic Regurgitation.Mild Pulmonary hypertension. Patient was to be discharged on lisinopril 20mg daily and further outpatient follow up by PCP and hospitality host. 2. EKG changes with PVCs/1st degree heart block. EKG at the time of admission showed irregularly irregular rate, looks like atrial fibrillation with PVC. However his pulse was reverted to regular spontaneously. Patient reported that he has history of irregular heart rate, skipped beats in the past, however was never on any anticoagulation. On admission, his serial troponin and EKG had been negative. ER doc spoke with Dr. Cyr hospitality host, no recommendations for IV heparin. In hospital hospitality host recommendation as above, and patient was discontinued on Coreg for his 1st degree heart block findings on EKG. 3. Chronic kidney disease Patient reports that he has chronic kidney disease, most likely from hypertension. His baseline creatinine varies between 2-2.2. His Creatinine at the time of admission 2.1. Cr was 2.2 on latest lab prior discharge. Patient follows Dr. Henriquez outpatient for chronic kidney disease. Patient had unclear remote allergy to Benzapril with complaints of "taking out all his electrolytes and made him crawling on floor", likely a sign of hyperkalemia which was confirmed with his PCP Dr. Posey on 07/16 morning. Patient was started on lisinopril in hospital without significant signs of muscle weekness/SOB/ Angioedema. He was advised to continue lisinopril, watch out for any side effects, and follow up electrolytes outpatient with his PCP Dr. Posey. 4. Elevated D dimers Patient was found to have bilateral lower extremity swelling with difficulty to ambulate. D dimers at the time of admission 466. Bilateral lower extremity venous ultrasound was done which ruled out deep vein thrombosis. 5. Hypertension Patient was discontinued on amlodipine and Coreg, and started on lisinopril as above. 6. h/o colon cancer Patient has remote history of colon cancer, resection done 22 years ago, on remission, diarrhea on and off from short bowel syndrome. He follows up with Dr. Espinosa jacquard lo[employer] card changer. He underwent colonoscopy on 05/31/2017, was found to have diverticulosis and distal rectal lesion recommending surgical consultation. He was seen by , underwent excision of rectal polyp on July 09. Since then patient reports that he has been having bleeding on and off. Patient states that he notices some blood after passing stool. On admission, patient was guaiac positive. His H/H was monitored during hospital stay, being stable, and had Hgb 9.2 on latest lab prior discharge. Patient was advised to continue follow up with Dr. Herrera in outpatient and watch for any signs of rectal bleeding. Patient was continued home meds including calcium, vitamin D, magnesium oxide, lactobacillus. Patient is full code Heart healthy diet Alps only given heme-positive stool and risk of bleeding Allergies: Coded Allergies: benazepril (From LOTREL) (UNKNOWN PER PT 07/08/17) cimetidine (UNKNOWN PER PT 07/08/17) fluconazole (From DIFLUCAN) (electrolytes off 07/08/17) Pertinent Lab Results: SERVICE DATE: 07/13/17-150 EXAM TYPE: RAD - XRY-PORTABLE CHEST XRAY IMPRESSION: Since 3 days ago, the patient has now developed small pleural effusions. Cardiomegaly. SERVICE DATE: 07/13/17-162 EXAM TYPE: US - US-EXT BILAT VENOUS DOPPLER IMPRESSION: There is no evidence of deep venous thrombosis involving the lower extremities. There is a right popliteal fossa complex Marsh's cyst measuring 7.4 x 0.9 x 2.0 cm. This cyst exhibits heterogeneous echotexture and may be partially ruptured. There is a left popliteal fossa Marsh's cyst measuring 2.1 x 0.9 x 1.7 cm. Laboratory Tests 07/15 07/14 0627 1437 Chemistry Magnesium (1.6 - 2.3 mg/dL) 1.6 Hematology CBC w Diff NO MAN DIFF REQ WBC (4.8 - 10.8 /CUMM) 6.8 RBC (4.70 - 6.10 /CUMM) 2.80 L Hgb (14.0 - 18.0 G/DL) 9.2 L Hct (42 - 52 %) 27.4 L MCV (80.0 - 94.0 FL) 97.9 H MCH (27.0 - 31.0 PG) 32.8 H MCHC (33.0 - 37.0 G/DL) 33.6 RDW (11.5 - 14.5 %) 13.4 Plt Count (130 - 400 /CUMM) 135 MPV (7.4 - 10.4 FL) 9.4 Gran % (42.2 - 75.2 %) 61.0 Lymphocytes % (20.5 - 51.1 %) 23.7 Monocytes % (1.7 - 9.3 %) 13.0 H Eosinophils % (0 - 5 %) 2.0 Basophils % (0.0 - 2.0 %) 0.3 Absolute Granulocytes (1.4 - 6.5 /CUMM) 4.1 Absolute Lymphocytes (1.2 - 3.4 /CUMM) 1.6 Absolute Monocytes (0.10 - 0.60 /CUMM) 0.9 H Absolute Eosinophils (0.0 - 0.7 /CUMM) 0.1 Absolute Basophils (0.0 - 0.2 /CUMM) 0 07/14 07/14 4555 7318 Chemistry Troponin I (<0.11 ng/ml) 0.05 Hematology CBC w Diff NO MAN DIFF REQ WBC (4.8 - 10.8 /CUMM) 7.9 RBC (4.70 - 6.10 /CUMM) 3.01 L Hgb (14.0 - 18.0 G/DL) 9.8 L Hct (42 - 52 %) 29.6 L MCV (80.0 - 94.0 FL) 98.4 H MCH (27.0 - 31.0 PG) 32.5 H MCHC (33.0 - 37.0 G/DL) 33.0 RDW (11.5 - 14.5 %) 13.5 Plt Count (130 - 400 /CUMM) 154 MPV (7.4 - 10.4 FL) 9.2 Gran % (42.2 - 75.2 %) 61.9 Lymphocytes % (20.5 - 51.1 %) 25.5 Monocytes % (1.7 - 9.3 %) 9.6 H Eosinophils % (0 - 5 %) 2.7 Basophils % (0.0 - 2.0 %) 0.3 Absolute Granulocytes (1.4 - 6.5 /CUMM) 4.9 Absolute Lymphocytes (1.2 - 3.4 /CUMM) 2.0 Absolute Monocytes (0.10 - 0.60 /CUMM) 0.8 H Absolute Eosinophils (0.0 - 0.7 /CUMM) 0.2 Absolute Basophils (0.0 - 0.2 /CUMM) 0 07/14 07/13 4684 7706 Chemistry Sodium (137 - 145 mmol/L) 145 Potassium (3.5 - 5.1 mmol/L) 3.6 Chloride (98 - 107 mmol/L) 112 H Carbon Dioxide (22 - 30 mmol/L) 20 L Anion Gap (5 - 16) 13 BUN (9 - 20 mg/dL) 35 H Creatinine (0.7 - 1.2 mg/dL) 2.2 H Estimated GFR (>60 ml/min) 29 L BUN/Creatinine Ratio (7 - 25 %) 15.9 Troponin I (<0.11 ng/ml) 0.05 Vitamin B12 (239 - 931 pg/mL) 217 L Folate (2.76 - 20.0 ng/mL) 17.8 Hematology CBC w Diff NO MAN DIFF REQ WBC (4.8 - 10.8 /CUMM) 5.8 RBC (4.70 - 6.10 /CUMM) 2.76 L Hgb (14.0 - 18.0 G/DL) 8.8 L Hct (42 - 52 %) 27.2 L MCV (80.0 - 94.0 FL) 98.6 H MCH (27.0 - 31.0 PG) 31.9 H MCHC (33.0 - 37.0 G/DL) 32.3 L RDW (11.5 - 14.5 %) 13.7 Plt Count (130 - 400 /CUMM) 135 MPV (7.4 - 10.4 FL) 9.3 Gran % (42.2 - 75.2 %) 60.8 Lymphocytes % (20.5 - 51.1 %) 24.4 Monocytes % (1.7 - 9.3 %) 12.0 H Eosinophils % (0 - 5 %) 2.4 Basophils % (0.0 - 2.0 %) 0.4 Absolute Granulocytes (1.4 - 6.5 /CUMM) 3.5 Absolute Lymphocytes (1.2 - 3.4 /CUMM) 1.4 Absolute Monocytes (0.10 - 0.60 /CUMM) 0.7 H Absolute Eosinophils (0.0 - 0.7 /CUMM) 0.1 Absolute Basophils (0.0 - 0.2 /CUMM) 0 03/20 1540 Chemistry Sodium (137 - 145 mmol/L) 144 Potassium (3.5 - 5.1 mmol/L) 4.1 Chloride (98 - 107 mmol/L) 110 H Carbon Dioxide (22 - 30 mmol/L) 19 L Anion Gap (5 - 16) 14 BUN (9 - 20 mg/dL) 31 H Creatinine (0.7 - 1.2 mg/dL) 2.1 H Estimated GFR (>60 ml/min) 30 L BUN/Creatinine Ratio (7 - 25 %) 14.8 Glucose (65 - 99 mg/dL) 91 Calcium (8.4 - 10.2 mg/dL) 8.8 Phosphorus (2.5 - 4.5 mg/dL) 3.3 Magnesium (1.6 - 2.3 mg/dL) 1.3 L Total Bilirubin (0.2 - 1.3 mg/dL) 1.1 AST (17 - 59 U/L) 11 L ALT (21 - 72 U/L) 19 L Alkaline Phosphatase (< 127 U/L) 101 Troponin I (<0.11 ng/ml) 0.04 Ujx-G-Ejqqcewhlhe Pept (<125 pg/mL) 26646 H Total Protein (6.3 - 8.2 g/dL) 6.6 Albumin (3.5 - 5.0 g/dL) 3.5 Globulin (1.9 - 4.2 gm/dL) 3.1 Albumin/Globulin Ratio (1.1 - 2.2 %) 1.1 Coagulation D-Dimer High Sensitivty (0 - 243 ng/ml) 466 H Hematology CBC w Diff NO MAN DIFF REQ WBC (4.8 - 10.8 /CUMM) 6.6 RBC (4.70 - 6.10 /CUMM) 3.00 L Hgb (14.0 - 18.0 G/DL) 9.7 L Hct (42 - 52 %) 29.5 L MCV (80.0 - 94.0 FL) 98.4 H MCH (27.0 - 31.0 PG) 32.3 H MCHC (33.0 - 37.0 G/DL) 32.9 L RDW (11.5 - 14.5 %) 13.9 Plt Count (130 - 400 /CUMM) 141 MPV (7.4 - 10.4 FL) 8.9 Gran % (42.2 - 75.2 %) 64.0 Lymphocytes % (20.5 - 51.1 %) 21.3 Monocytes % (1.7 - 9.3 %) 11.7 H Eosinophils % (0 - 5 %) 2.3 Basophils % (0.0 - 2.0 %) 0.7 Absolute Granulocytes (1.4 - 6.5 /CUMM) 4.2 Absolute Lymphocytes (1.2 - 3.4 /CUMM) 1.4 Absolute Monocytes (0.10 - 0.60 /CUMM) 0.8 H Absolute Eosinophils (0.0 - 0.7 /CUMM) 0.1 Absolute Basophils (0.0 - 0.2 /CUMM) 0 Disposition Summary Disposition Principal Diagnosis: 1. Bilateral lower extremity edema 2/2chronic diastolic heart failure 2. Asymptomatic conduction disease/bradycardia 3. Essential hypertension 4. CKD stage 3 stable 5. Chronic anemia 6. Recent polyp resection and hemorrhoidectomy Additional Diagnosis: As above Discharge Disposition: home or self care Discharge Instructions General Discharge Information Code Status: Full Code Patient's Diet: Heart Healthy Patient's Activity: As tolerated Follow-Up Instructions/Appts: - Please follow up with your hospitality host Dr. Mccann within 1-2 weeks of discharge. - Please follow up with your primary care physician within 1-2 weeks of discharge. Inform your primary care physician of this admission to [facility]. - Continue your current medications per discharge instructions. - Please watch for these problems: Fever, Chills, Nausea, Vomiting, Shortness of Breath, Productive Cough, Chest Pain/Discomfort, Abdominal Pain, Active Bleeding or Bloody urine/stool. Medications at Discharge Discharge Medications: Stop taking the following medications: Amlodipine Besylate (Amlodipine Besylate) 5 MG TABLET ORAL TWICE DAILY Qty = 30 Carvedilol (Carvedilol) 12.5 MG TABLET ORAL Every night Qty = 90 Continue taking these medications: Magnesium Oxide (Magnesium) 500 MG CAPSULE 1 Capsule ORAL Every Morning Comments: Last Taken: 07/15/16 Time: 0900 Calcium Carbonate/Vitamin D3 (Calcium + Vitamin D Tablet) (Unknown Strength) TABLET Unknown Dose ORAL DAILY Comments: NOT GIVEN Lipase/Protease/Amylase ([place] 36,000 Units Capsule) 36K-114K CAPSULE. 1 Capsule ORAL TWICE DAILY Comments: NOT GIVEN [BAKING SODA] 1 Teaspoonful ORAL DAILY Comments: NOT GIVEN Cholecalciferol (Vitamin D3) 1,000 UNIT TABLET 1 Tablet ORAL DAILY Comments: Last Taken:07/15/17 Time:0914 Lactobacillus Acidophilus (Acidophilus) 1 EACH CAPSULE 1 Capsule ORAL DAILY Comments: Last Taken:07/15/17 Time:0914 Start taking the following new medications: Lisinopril (Lisinopril) 20 MG TABLET 20 Milligram ORAL DAILY Qty = 30 No Refills Instructions: . Comments: Last Taken:07/15/17 Time:914 Furosemide (Lasix) 40 MG TABLET 40 Milligram ORAL DAILY Qty = 30 No Refills Instructions: . Comments: Last Taken:07/15/17 Time:914 Copies To: Taty KHAN,Marv Alex Attending Review Statement Documenting Attending: Hipolito Muhammad MD Other Findings: Discharged in stable condition
[2017-07-14 22:30] VITALS: BP 150/78
[2017-07-15 06:34] VITALS: BP 116/62
--- NOTE | 2017-07-15 07:23 | ECHOCARDIOGRAM REPORT ---
PEBBLES ALFONSO Age: 86 : 1930 Gender: M Exam Date: 07/14/2017 14:43 Exam Location: [address] Ht (in): 65 Wt (lb): 165 BSA: 1.87 BP: 142 / 76 Ordering Physician: Sola Dobbs MD Referring Physician: Sola Dobbs MD Technologist: Chi Richards [facility] Room Number: 174-1 Indications: CHF, unspecified or secondary right CHF Rhythm: Atrial fibrillation Technical Quality: good FINDINGS Left Ventricle Moderate left ventricular dilatation. Left ventricular wall thickness mildly increased. Mildly abnormal left ventricular ejection fraction estimated at 45-50%. Right Ventricle Normal right ventricular size and function. Right Atrium Normal right atrial size. Left Atrium Mild left atrial dilatation. Mitral Valve Mild mitral annular calcification. Mild mitral regurgitation. Aortic Valve Aortic valve not well visualized, grossly normal. Moderate to severe aortic regurgitation. Tricuspid Valve Tricuspid valve is normal in structure and function. Mild tricuspid regurgitation. Right ventricular systolic pressure estimated to be elevated at 40 mmHg. Pulmonic Valve Pulmonic valve not well visualized, grossly normal. Pericardium No pericardial effusion. Great Vessels Mildly dilated proximal ascending aorta (tube). CONCLUSIONS Dilated left ventricle with mildly reduced left ventricular systolic function. Moderate to severe Aortic Regurgitation.Mild Pulmonary hypertension. Domenico Mccann M.D. (Electronically Signed) Final Date: 15 July 2017 07:22 MEASUREMENTS (Male / Female) Normal Values 2D ECHO LV Diastolic Diameter PLAX 6.5 cm 4.2 - 5.9 / 3.9 - 5.3 cm LV Systolic Diameter PLAX 4.2 cm 2.1 - 4.0 cm LV Fractional Shortening PLAX 35.4 % 25 - 46 % LV Ejection Fraction 2D Teich 63.6 % IVS Diastolic Thickness 1.2 cm LVPW Diastolic Thickness 1.1 cm LV Relative Wall Thickness 0.4 LVOT Diameter 2.2 cm Aortic Root Diameter 3.7 cm LA Systolic Diameter LX 3.8 cm 3.0 - 4.0 / 2.7 - 3.8 cm LV Ejection Fraction MOD BP 65.1 % >= 55 % LV Cardiac Index MOD BP 7633.5 cm/minm LV Diastolic Length 4C 9.9 cm 6.9 - 10.3 cm LV Diastolic Area 4C 49.0 cm LV Diastolic Volume MOD 4C 193.0 cm LV Ejection Fraction MOD 4C 65.3 % LV Stroke Volume MOD 4C 126.0 cm LV Cardiac Index MOD 4C 7072.2 cm/minm LV Systolic Length 4C 8.4 cm LV Systolic Area 4C 25.6 cm LV Systolic Volume MOD 4C 67.0 cm LV Ejection Fraction MOD 2C 65.0 % LV Cardiac Index MOD 2C 8138.7 cm/minm LV Diastolic Volume 4C AL 205.9 cm 85 - 139 / 69 - 109 cm LV Systolic Volume 4C AL 66.5 cm LV Ejection Fraction 4C AL 67.7 % LV Stroke Volume 4C AL 139.5 cm LV Cardiac Index 4C AL 7827.9 cm/minm LV Ejection Fraction 2C AL 66.4 % LV Cardiac Index 2C AL 8519.7 cm/minm Ascending Aorta Diameter 4.0 cm DOPPLER AV Peak Velocity 196.0 cm/s AV Peak Gradient 15.4 mmHg AI Deceleration [place] 156.0 cm/s AI Peak Velocity 442.0 cm/s AI Pressure Half Time 831.0 ms AI Peak Gradient 78.1 mmHg LVOT Peak Velocity 111.0 cm/s LVOT Peak Gradient 4.9 mmHg AV Area Cont Eq pk 2.2 cm TR Peak Velocity 280.0 cm/s TR Peak Gradient 31.4 mmHg PV Peak Velocity 100.0 cm/s PV Peak Gradient 4.0 mmHg
--- NOTE | 2017-07-15 07:26 | PN- Housestaff ---
LeeLena 07/15/17 0726: Subjective Follow-up For: 1. Acute on chronic diastolic heart failure 2. Abnormal EKG, does not appear to be Afib 3. Essential hypertension 4. CKD stage 3 stable 5. Chronic anemia 6. Recent polyp resection and hemorrhoidectomy Tele-Events Since Last Visit: NSR w/ PVCs, 50-70s Subjective: No overnight event. Patient c/o right knee pain which was chronic for him. Tylenol was given overnight to help him sleep. Otherwise no other specific compalint. Review of Systems Constitutional: Reports: see HPI. Objective Last 24 Hrs of Vital Signs/I&O Vital Signs Date Time Temp Pulse Resp B/P B/P Pulse O2 O2 Flow FiO2 Mean Ox Delivery Rate 07/15 0634 97.8 66 18 116/62 94 Room Air 07/14 2230 97.9 66 20 150/78 97 07/14 2134 64 152/78 07/14 1430 97.9 61 20 147/76 95 Room Air 07/14 0947 60 120/70 Intake & Output 07/15 1600 07/15 0800 07/15 0000 Intake Total 460 960 Output Total 1050 850 Balance -590 110 Intake, Oral 460 960 Number 1 Bowel Movements Output, Urine 1050 850 Patient 80.739 kg Weight Physical Exam General Appearance: Alert, Oriented X3, Cooperative, No Acute Distress Cardiovascular: Regular Rate Lungs: Clear to Auscultation, Normal Air Movement Abdomen: Soft, No Tenderness Neurological: Normal Speech, Strength at 5/5 X4 Ext Extremities: Normal Pulses, In ALPS, trace edematous, improved from yesterday Current Medications: Current Medications Sig/Lico Start time Last Medication Dose Route Stop Time Status Admin Acetaminophen 650 MG Q6P PRN 07/13 2129 AC 07/15 PO 0039 Amlodipine Besylate 5 MG BID 07/13 2199 DC 07/14 PO 213 Carvedilol 12.5 MG QPM 07/13 2199 DC 07/13 PO 223 Cholecalciferol 1,000 IU DAILY 07/14 1000 AC 07/14 PO 0947 Furosemide 40 MG DAILY 07/15 1000 AC PO Furosemide 40 MG DAILY 07/14 1000 DC 07/14 IV 07/15 0000 0948 Lactobacillus 1 CAP DAILY 07/14 1000 AC 07/14 Acidophilus PO 0947 Magnesium Oxide 400 MG BID 07/14 1000 AC 07/14 PO 2128 Magnesium Sulfate 1 GM Q2H 07/14 0645 DC 07/14 Dextrose/Water 100 ML IV 07/14 1044 0921 Last 24 Hrs of Lab/Jeff Results Last 24 Hrs of Labs/Mics: Laboratory Tests 07/15/17 0627: CBC w Diff Pending, WBC Pending, RBC Pending, Hgb Pending, Hct Pending, MCV Pending, MCH Pending, MCHC Pending, RDW Pending, Plt Count Pending, MPV Pending 07/14/17 1437: Magnesium 1.6 07/14/17 1435: CBC w Diff NO MAN DIFF REQ, RBC 3.01 L, MCV 98.4 H, MCH 32.5 H, MCHC 33.0, RDW 13.5, MPV 9.2, Gran % 61.9, Lymphocytes % 25.5, Monocytes % 9.6 H, Eosinophils % 2.7, Basophils % 0.3, Absolute Granulocytes 4.9, Absolute Lymphocytes 2.0, Absolute Monocytes 0.8 H, Absolute Eosinophils 0.2, Absolute Basophils 0 Assessment/Plan Assessment: Mr. Mora is a 86-year-old male with past medical history significant for hypertension, chronic kidney disease, colon cancer status post resection 22 years ago, on remission, short bowel syndrome, diverticulosis presented to the hospital for evaluation of worsening bilateral lower extremity swelling for few days. Patient reports that he has been having bilateral lower extremity swelling for few months. However he noticed worsening swelling for few days, difficulty to ambulate. Also reports shortness of breath on exertion. Denies any orthopnea, paroxysmal nocturnal dyspnea, chest pain, palpitations, fever, chills, productive cough. He denies any pain in lower extremities. Patient reports that he was on Lasix many years back, however that was discontinued. Echocardiogram in 2011 showed diastolic heart failure. He usually follows up with his federal judicial law clerk Dr. Domenico Brock. Patient also reports that he has irregular heartbeat, skipped beats in the past. However he is not on any anticoagulation. Patient has remote history of colon cancer, resection done 22 years ago, on remission, diarrhea on and off from short bowel syndrome. He follows up with Dr. Espinosa turret press operator. He underwent colonoscopy on 05/31/2017, was found to have diverticulosis and distal rectal lesion recommending surgical consultation. He was seen by , underwent excision of rectal polyp on July 09. Since then patient reports that he has been having bleeding on and off. Patient states that he notices some blood after passing stool. Denies any nausea, vomiting, hematemesis, melena, abdominal pain. No change in urinary habits. He also reports history of chronic kidney disease, follows up with Dr. Henriquez. On admission Vitals afebrile,HR 60, respiratory rate 18, blood pressure 159/70, saturating at 98 on room air. On exam HEENT wnl JVD S1-S2 normal no murmurs B/L breath sounds decreased at bases Abdomen soft, nontender, nondistended +3 pitting edema noted in lower extremities Pertinent labs wbc 6.6, hemoglobin 9.1, hematocrit 29, platelets 141 D-dimer 466 BUN 31, creatinine 2.1 ProBNP 11,000, troponin negative Bilateral lower extremity Doppler negative for DVT Chest x-ray showed bilateral small pleural effusions and cardiomegaly 1. Acute on chronic diastolic congestive heart failure Patient has history of diastolic congestive heart failure, echo 2011 showed diastolic stage I dysfunction. He was on Lasix in the past. However he was discontinued because of chronic kidney disease. Patient now presented with worsening bilateral lower extremity swelling and minimal shortness of breath on exertion. He was found to have elevated JVD, bilateral 3+ pitting edema, elevated proBNP 11,000, chest x-ray findings suggestive of small pleural effusions and cardiomegaly. * Maintain oxygen saturation above 90 * Patient was swithced to po lasix 40mg qd. - Appreciated cardio consult, will DC amlodipine, and pending nephro consult on use of ACEI/ARBs for BP control. * Negative fluid balance -2840. * Daily weights * closely monitor BUN and creatinine given his chronic kidney disease * Monitor electrolytes closely * Echo revealed EF 45-50%, Dilated left ventricle with mildly reduced left ventricular systolic function. Moderate to severe Aortic Regurgitation.Mild Pulmonary hypertension. 2. Abnormal EKG EKG at the time of admission showed irregularly irregular rate, looks like atrial fibrillation with PVC. However his pulse was regular. Patient reports that he has history of irregular heart rate, skipped beats in the past. He follows Domenico Mccann MD federal judicial law clerk. He was never on any anticoagulation. * Serial troponin and EKG had been negative. * Cardiology consult as above * ER doc spoke with Dr. yCr federal judicial law clerk, no recommendations for IV heparin. 3. Chronic kidney disease Patient reports that he has chronic kidney disease, most likely from hypertension. His baseline creatinine varies between 2-2.2. * Creatinine at the time of admission 2.1. Cr was 2.2 on latest lab. * Follows Dr. Henriquez outpatient for chronic kidney disease. Pending nephro consult as above. 4. Elevated D dimers Patient was found to have bilateral lower extremity swelling with difficulty to ambulate. D dimers at the time of admission 466. Bilateral lower extremity venous ultrasound was done which ruled out deep vein thrombosis. - Likely from use of Amlodipine. Improved today with discontinuation. 5. Hypertension * Continue carvedilol 12.5 mg at bedtime - Held Amlodipine as above. 6. h/o colon cancer Patient has remote history of colon cancer, resection done 22 years ago, on remission, diarrhea on and off from short bowel syndrome. He follows up with Dr. Espinosa turret press operator. He underwent colonoscopy on 05/31/2017, was found to have diverticulosis and distal rectal lesion recommending surgical consultation. He was seen by , underwent excision of rectal polyp on July 09. Since then patient reports that he has been having bleeding on and off. Patient states that he notices some blood after passing stool. * Heme positive stool * Monitor H&H closely, stable at Hgb 9.2 on latest lab. - Continued home meds including calcium, vitamin D, magnesium oxide, lactobacillus. Patient is full code Heart healthy diet Alps only given heme-positive stool and bleeding Problem List: 1. Congestive heart failure Pain Ratin Pain Location: Right knee, pain free currently Pain Goal: Remain pain free Pain Plan: see AP Tomorrow's Labs & Rationales: KIMANI Muhammad MD,[place] 07/15/17 1331: Attending MD Review Statement Attending Statement Attending MD Statement: examined this patient, discuss w/resident/PA/INSTRUCTIONAL SYSTEMS DESIGN CONSULTANT, agreed w/resident/PA/INSTRUCTIONAL SYSTEMS DESIGN CONSULTANT, reviewed EMR data (avail), discussed with nursing, discussed with case mgmt, amended to note Attending Assessment/Plan: Patient seen and examined. Resting comfortably not in any acute distress. No issues overnight. No evidence of bradycardia overnight. EKG is unchanged this morning showing normal sinus rhythm with first-degree AV block. Patient denies any chest pain or shortness of breath. Denies any palpitations. He is maintaining saturation on room air. On examination she has no jugular venous distention. Lungs are clear bilaterally. Abdomen is soft and nontender. He continues to have lower extremity edema which we believe is secondary to his amlodipine therapy. Patient has Benzapril listed as an allergy. When asked about side effects he reported that he had electrolyte abnormalities. He denies any episodes of angioedema. We stopped his beta-lakisha due to his conduction abnormalities. We also stopped his amlodipine due to his lower extremity swelling. We started him on lisinopril and so far he has tolerated it well with no untoward events. Recommendations: -Patient is medically stable to be discharged home today. -We are discharging him on Lasix 40 mg daily and lisinopril 10 mg daily. Patient is to follow-up with his primary care provider for monitoring of his electrolytes. -Patient is to follow-up with the cardiology service.
[2017-07-15 08:19] LABS: ABSOLUTE BASOPHIL COUNT 0 /CUMM (0.0-0.2); ABSOLUTE EOSINOPHIL COUNT 0.1 /CUMM (0.0-0.7); ABSOLUTE GRANULOCYTE CT 4.1 /CUMM (1.4-6.5); ABSOLUTE LYMPH COUNT 1.6 /CUMM (1.2-3.4); ABSOLUTE MONOCYTE COUNT 0.9 /CUMM (0.10-0.60); BASOPHIL % 0.3 % (0.0-2.0); HEMATOCRIT 27.4 % (42-52); MEAN CORPUSCULAR HGB 32.8 PG (27.0-31.0); MEAN CORPUSCULAR HGB CONC 33.6 G/DL (33.0-37.0); MEAN CORPUSCULAR VOLUME 97.9 FL (80.0-94.0); MEAN PLATELET VOLUME 9.4 FL (7.4-10.4); PLATELET COUNT 135 /CUMM (130-400); RBC DISTRIBUTION WIDTH 13.4 % (11.5-14.5); WHITE BLOOD CELL COUNT 6.8 /CUMM (4.8-10.8)
--- NOTE | 2017-07-15 10:43 | PN- Cardiology ---
Subjective Subjective: Telemetry reviewed. Sinus rhythm with interventricular conduction delay, PVCs and first-degree AV block. Patient feels comfortable. Objective Vital Signs and I&Os Vital Signs Date Time Temp Pulse Resp B/P B/P Pulse O2 O2 Flow FiO2 Mean Ox Delivery Rate 07/15 0634 97.8 66 18 116/62 94 Room Air 07/14 2230 97.9 66 20 150/78 97 07/14 2134 64 152/78 07/14 1430 97.9 61 20 147/76 95 Room Air Intake & Output 07/15 1600 07/15 0800 07/15 0000 07/14 1600 07/14 0800 07/14 0000 Intake Total 460 960 600 100 200 Output Total 1780 209 9587 2050 500 Balance -590 110 -1000 -1950 -300 Intake, Oral 460 960 600 100 200 Number 1 2 Bowel Movements Output, Urine 3162 798 4871 2050 500 Patient 178 lb 164 lb Weight Weight Bed scale Measurement Method Physical Exam: Gen. exam patient appeared comfortable Head normocephalic atraumatic Eyes sclera anicteric conjunctiva showed no pallor extraocular muscles were normal Neck no jugular venous distention, no carotid bruits no thyroid masses no palpable nodes Chest lungs were clear bilaterally Heart regular rhythm with ectopy, 1-2/6 systolic murmur Abdomen soft no organomegaly bowel sounds normal Extremities 1+ bilateral edema while in bed. Neurological no gross motor or sensory deficits Current Medications: Current Medications Sig/Lico Start time Last Medication Dose Route Stop Time Status Admin Acetaminophen 325 MG .STK-MED ONE 07/15 0037 DC PO 07/15 0038 Acetaminophen 650 MG Q6P PRN 07/13 2130 AC 07/15 PO 0039 Amlodipine Besylate 5 MG BID 07/13 2200 DC 07/14 PO 2134 Cholecalciferol 1,000 IU DAILY 07/14 1000 AC 07/15 PO 0914 Furosemide 40 MG DAILY 07/15 1000 AC 07/15 PO 0915 Furosemide 40 MG DAILY 07/14 1000 DC 07/14 IV 07/15 0000 0948 Lactobacillus 1 CAP DAILY 07/14 1000 AC 07/15 Acidophilus PO 0914 Lisinopril 20 MG DAILY 07/15 1016 AC PO Magnesium Oxide 400 MG BID 07/14 1000 AC 07/15 PO 0914 Magnesium Sulfate 1 GM Q2H 07/14 0645 DC 07/14 Dextrose/Water 100 ML IV 07/14 1044 0921 Results Last 48 Hrs of Labs/Mics: Laboratory Tests 07/15/17 0627: CBC w Diff NO MAN DIFF REQ, RBC 2.80 L, MCV 97.9 H, MCH 32.8 H, MCHC 33.6, RDW 13.4, MPV 9.4, Gran % 61.0, Lymphocytes % 23.7, Monocytes % 13.0 H, Eosinophils % 2.0, Basophils % 0.3, Absolute Granulocytes 4.1, Absolute Lymphocytes 1.6, Absolute Monocytes 0.9 H, Absolute Eosinophils 0.1, Absolute Basophils 0 07/14/17 1437: Magnesium 1.6 07/14/17 1435: CBC w Diff NO MAN DIFF REQ, RBC 3.01 L, MCV 98.4 H, MCH 32.5 H, MCHC 33.0, RDW 13.5, MPV 9.2, Gran % 61.9, Lymphocytes % 25.5, Monocytes % 9.6 H, Eosinophils % 2.7, Basophils % 0.3, Absolute Granulocytes 4.9, Absolute Lymphocytes 2.0, Absolute Monocytes 0.8 H, Absolute Eosinophils 0.2, Absolute Basophils 0 07/14/17 0415: Troponin I 0.05 07/14/17 0415: Anion Gap 13, Estimated GFR 29 L, BUN/Creatinine Ratio 15.9, Vitamin B12 217 L , Folate 17.8, CBC w Diff NO MAN DIFF REQ, RBC 2.76 L, MCV 98.6 H, MCH 31.9 H , MCHC 32.3 L, RDW 13.7, MPV 9.3, Gran % 60.8, Lymphocytes % 24.4, Monocytes % 12.0 H, Eosinophils % 2.4, Basophils % 0.4, Absolute Granulocytes 3.5, Absolute Lymphocytes 1.4, Absolute Monocytes 0.7 H, Absolute Eosinophils 0.1, Absolute Basophils 0 07/13/17 2253: Troponin I 0.05 07/13/17 1540: Anion Gap 14, Estimated GFR 30 L, BUN/Creatinine Ratio 14.8, Glucose 91, Calcium 8.8, Phosphorus 3.3, Magnesium 1.3 L, Total Bilirubin 1.1, AST 11 L, ALT 19 L, Alkaline Phosphatase 101, Troponin I 0.04, Gfh-[id number]-Rkyimvklrps Pept 82284 H, Total Protein 6.6, Albumin 3.5, Globulin 3.1, Albumin/Globulin Ratio 1.1, D-Dimer High Sensitivty 466 H, CBC w Diff NO MAN DIFF REQ, RBC 3.00 L, MCV 98.4 H, MCH 32.3 H, MCHC 32.9 L, RDW 13.9, MPV 8.9, Gran % 64.0, Lymphocytes % 21.3, Monocytes % 11.7 H, Eosinophils % 2.3, Basophils % 0.7, Absolute Granulocytes 4.2, Absolute Lymphocytes 1.4, Absolute Monocytes 0.8 H, Absolute Eosinophils 0.1, Absolute Basophils 0 Recent Imaging Studies: Echocardiogram Dilated left ventricle with mildly reduced left ventricular systolic function. Left ventricular ejection fraction 45-50% Moderate to severe Aortic Regurgitation.Mild Pulmonary hypertension. Venous ultrasound lower extremities There is no evidence of deep venous thrombosis involving the lower extremities. There is a right popliteal fossa complex Marsh's cyst measuring 7.4 x 0.9 x 2.0 cm. This cyst exhibits heterogeneous echotexture and may be partially ruptured. T Assessment/Plan Assessment/Plan In summary this 86-year-old gentleman has the following problems 1. Bilateral lower extremity edema , could be related to bilateral Marsh's cyst demonstrated on venous ultrasound, mild congestive heart failure cannot be excluded, or related to amlodipine. 2. Chronic kidney disease 3. Asymptomatic conduction disease/bradycardia 4. Moderate to severe aortic regurgitation with dilated left ventricle with ejection fraction 45-50% 5. History of colon cancer I would continue Lasix and agree with YAMINI inhibitor or angiotensin receptor lakisha as an unloading agent for his aortic regurgitation. Add magnesium supplements 400 mg once a day and keep potassium greater than 4.0 mEq. Continue telemetry? Yes
[2017-07-15 11:40] VITALS: BP 132/78
[2017-07-15] MEDS ORDERED: LISINOPRIL20 M1 PO ×2 (13:20→13:38)
[2017-07-15] MEDS ORDERED: LASIX40 M1 PO ×2 (13:20→13:38)
== END 2017-07-15 15:27 | DRG 291 ==
LOC: ERH 12:54 → ERHI 19:42 → 1NO 19:42 → ENRESERV 20:12 → ENTRNSPT 20:52 → EDTRNSPT 20:59 → EDTRNSPTSTS 20:59 → 1NO 21:23 → CMPTRNSPT 21:29 → 1NO 07-14 07:32 → ENPENDDIS 07-15 13:37 → ENTRNSPT 07-15 14:47 → EDTRNSPTSTS 07-15 15:01 → EDTRNSPT 07-15 15:01 → 1NO 07-15 15:27 → CMPTRNSPT 07-15 15:39
PROVIDERS: Hospitalist; Physician Assistant
DX: I13.0 Hypertensive heart and chronic kidney disease with heart failure and stage 1 through stage 4 chronic kidney disease, or unspecified chronic kidney disease (principal); I50.33 Acute on chronic diastolic (congestive) heart failure; K91.2 Postsurgical malabsorption, not elsewhere classified; J90 Pleural effusion, not elsewhere classified; D64.9 Anemia, unspecified; N18.3 Chronic kidney disease, stage 3 (moderate); Z85.038 Personal history of other malignant neoplasm of large intestine
CPT/HCPCS: 1NSP; 36592; 71045; 82436; 93005; 93010; 93306; 93970; J1940